=== PATIENT | female | born 1985 | race Caucasian/White ===

== ENCOUNTER 2016-09-18 | Emergency (ER) | payer OTHER ==
--- NOTE | 2016-09-18 14:25 | ED ---
Abdominal Pain HPI - General Chief Complaint: Abdominal Pain Stated Complaint: abdominal pain Time Seen by Provider: 09/18/16 14:08 Source: patient, RN notes reviewed Mode of arrival: ambulatory Limitations: no limitations - History of Present Illness Initial Comments: Patient 31-year-old female who presents to the [facility] emergency room today with a chief complaint of abdominal pain was symptoms of nausea vomiting diarrhea over the last 3 days. Patient states that symptoms started 3 days ago with symptoms of nausea vomiting. She states that states had some abdominal pain that is comes and goes. States located in her lower abdomen. States it's more discomfort. Patient admits to diarrhea but denies any signs of blood in the stool or emesis. She denies any other complaints associated symptoms. - Related Data Home Medications Medication Instructions Recorded Confirmed Ibuprofen [Motrin] 800 mg PO Q8H PRN 08/12/15 11/10/15 Previous Rx's Medication Instructions Recorded Naproxen [Naprosyn] 500 mg PO Q12HR #24 tab 11/10/15 Dicyclomine [Bentyl] 20 mg PO QID #20 tablet 09/18/16 Ondansetron Odt [Zofran ODT] 4 mg PO Q8HR PRN #15 tab 09/18/16 Allergies Allergy/AdvReac Type Severity Reaction Status Date / Time erythromycin ethylsuccinate Allergy Unknown Verified 09/18/16 13:54 [From Pediazole] etonogestrel [From Nexplanon] Allergy Unknown Verified 09/18/16 13:54 iodine Allergy Unknown Verified 09/18/16 13:54 Penicillins Allergy Unknown Verified 09/18/16 13:54 Sulfa (Sulfonamide Allergy Unknown Verified 09/18/16 13:54 Antibiotics) sulfisoxazole acetyl Allergy Unknown Verified 09/18/16 13:54 [From Pediazole] decongestants Allergy Unknown Uncoded 09/18/16 13:54 Review of Systems ROS Statement: Those systems with pertinent positive or pertinent negative responses have been documented in the HPI. ROS Other: All systems not noted in ROS Statement are negative. Past Medical History Past Medical History: Asthma Additional Past Medical History / Comment(s): migraines, anemia, ovarian cyst History of Any Multi-Drug Resistant Organisms: None Reported Past Surgical History: Adenoidectomy, Orthopedic Surgery Additional Past Surgical History / Comment(s): bunionectomy, ovarian cyst removal, d&c Past Psychological History: Anxiety Smoking Status: Never smoker Past Alcohol Use History: None Reported Past Drug Use History: None Reported General Exam - General Exam Comments Initial Comments: General: The patient is awake and alert, in no distress, and does not appear acutely ill. Eye: Pupils are equal, round and reactive to light, extra-ocular movements are intact. No nystagmus. There is normal conjunctiva bilaterally. No signs of icterus. Ears, nose, mouth and throat: There are moist mucous membranes and no oral lesions. Neck: The neck is supple, there is no tenderness or JVD. Cardiovascular: There is a regular rate and rhythm. No murmur, rub or gallop is appreciated. Respiratory: Lungs are clear to auscultation, respirations are non-labored, breath sounds are equal. No wheezes, stridor, rales, or rhonchi. Gastrointestinal: Normal. 7. Normal bowel sounds. Abdomen soft on palpation. Mild tenderness. No rebound or guarding. No CVA tenderness. Musculoskeletal: Normal ROM, no tenderness. Strength 5/5. Sensation intact. Pulses equal bilaterally 2+. Neurological: A&O x 3. CN II-XII intact, There are no obvious motor or sensory deficits. Coordination appears grossly intact. Speech is normal. Skin: Skin is warm and dry and no rashes or lesions are noted. Psychiatric: Cooperative, appropriate mood & affect, normal judgment. Limitations: no limitations Course Vital Signs 09/18/16 13:52 Temperature 97.8 F Pulse Rate 82 Respiratory 18 Rate Blood Pressure 111/71 O2 Sat by Pulse 100 Oximetry Medical Decision Making - Medical Decision Making Treatment options discussed with patient about IV and lab work here in the emergency room along with fluids. States she is able tolerate is been keeping fluids down. Abdominal pain minimal on exam. She states is more of a discomfort that comes and goes. Signs symptoms appendicitis were also discussed with the patient. She states that this time shows comfortable being discharged home trying medications of both Zofran and Bentyl for her symptoms. She states she will increase her oral fluids. She states she will return to emergency room symptoms increase or worsen or for any other concerns. Disposition Clinical Impression: Nausea vomiting and diarrhea, Abdominal pain Disposition: HOME SELF-CARE Condition: Good Instructions: Abdominal Pain (ED) Additional Instructions: Please use medication as discussed. Please follow-up with family doctor in the next 2 days of symptoms have not improved. Please return to emergency room if the symptoms increase or worsen or for any other concerns. Prescriptions: Dicyclomine [Bentyl] 20 mg PO QID #20 tablet Ondansetron Odt [Zofran ODT] 4 mg PO Q8HR PRN #15 tab PRN Reason: Nausea Time of Disposition: 14:24
== END 2016-09-18 14:31 | disposition home or self-care (01) ==
CPT/HCPCS: 99283

== ENCOUNTER 2016-10-30 18:15 | Emergency (ER) | payer OTHER ==
[2016-10-30 18:20] VITALS: TEMP 97.7
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
--- NOTE | 2016-10-30 19:16 | XR ---
EXAMINATION TYPE: XR tibia fibula LT DATE OF EXAM: 10/30/2016 6:59 PM COMPARISON: NONE HISTORY: Pain TECHNIQUE: 4 views FINDINGS: I see no fracture nor dislocation. Knee joint and ankle joint appear intact. IMPRESSION: Negative left tibia and fibula exam.
[2016-10-30 19:37] VITALS: BP 113/72; PULSE 71; RESP 16
== END 2016-10-30 19:37 | disposition home or self-care (01) ==
LOC: EC 18:15
DX: S80.12XA Contusion of left lower leg, initial encounter (principal); W22.8XXA Striking against or struck by other objects, initial encounter; B37.3 Candidiasis of vulva and vagina; Z79.899 Other long term (current) drug therapy; Z88.0 Allergy status to penicillin; Z88.1 Allergy status to other antibiotic agents; Z88.2 Allergy status to sulfonamides; Z88.8 Allergy status to other drugs, medicaments and biological substances
CPT/HCPCS: 99284

== ENCOUNTER 2017-01-06 08:43 | Emergency (ER) | payer OTHER ==
[2017-01-06] MEDS ORDERED: SODIUM CHLORIDE 0.9% 1,000 ML IV STA (11:16)
[2017-01-06] MEDS ORDERED: ACETAMINOPHEN IV (For NPO) 1,000 MG in SALINE 100 100ML.BAG IVPB STA (11:17)
--- NOTE | 2017-01-06 11:20 | ED ---
General Adult HPI - General Chief complaint: Abdominal Pain Stated complaint: abd pain Time Seen by Provider: 01/06/17 11:04 Source: patient, RN notes reviewed Mode of arrival: ambulatory Limitations: no limitations - History of Present Illness Initial comments: Patient is a 31-year-old female who presents emergency room today with a chief complaint of abdominal pain times one week. She does admit to pain right side of the abdomen. States has been getting worse the last day. States radiating up and around to the back. Admits some nausea at times. She denies any other complaints or symptoms. Patient denies any recent fever, chills, shortness of breath, chest pain, back pain,vomiting, numbness or tingling, dysuria or hematuria, constipation or diarrhea, headaches or visual changes, or any other complaints. - Related Data Home Medications Medication Instructions Recorded Confirmed Ibuprofen [Motrin] 800 mg PO Q8H PRN 08/12/15 01/06/17 Amitriptyline HCl [Elavil] 10 mg PO HS 01/06/17 01/06/17 Cetirizine HCl [Zyrtec] 10 mg PO HS 01/06/17 01/06/17 Multivitamins, Thera [Multivitamin 1 tab PO DAILY 01/06/17 01/06/17 (formulary)] Allergies Allergy/AdvReac Type Severity Reaction Status Date / Time erythromycin ethylsuccinate Allergy Unknown Verified 01/06/17 12:21 [From Pediazole] etonogestrel [From Nexplanon] Allergy Unknown Verified 01/06/17 12:21 iodine Allergy Unknown Verified 01/06/17 12:21 Penicillins Allergy Unknown Verified 01/06/17 12:21 Sulfa (Sulfonamide Allergy Unknown Verified 01/06/17 12:21 Antibiotics) sulfisoxazole acetyl Allergy Unknown Verified 01/06/17 12:21 [From Pediazole] decongestants Allergy Unknown Uncoded 09/18/16 13:54 Review of Systems ROS Statement: Those systems with pertinent positive or pertinent negative responses have been documented in the HPI. ROS Other: All systems not noted in ROS Statement are negative. Past Medical History Past Medical History: Asthma Additional Past Medical History / Comment(s): migraines, anemia, ovarian cyst History of Any Multi-Drug Resistant Organisms: None Reported Past Surgical History: Adenoidectomy, Orthopedic Surgery Additional Past Surgical History / Comment(s): bunionectomy, ovarian cyst removal, d&c Past Psychological History: Anxiety Smoking Status: Never smoker Past Alcohol Use History: None Reported Past Drug Use History: None Reported General Exam - General Exam Comments Initial Comments: General: The patient is awake and alert, in no distress, and does not appear acutely ill. Eye: Pupils are equal, round and reactive to light, extra-ocular movements are intact. No nystagmus. There is normal conjunctiva bilaterally. No signs of icterus. Ears, nose, mouth and throat: There are moist mucous membranes and no oral lesions. Neck: The neck is supple, there is no tenderness or JVD. Cardiovascular: There is a regular rate and rhythm. No murmur, rub or gallop is appreciated. Respiratory: Lungs are clear to auscultation, respirations are non-labored, breath sounds are equal. No wheezes, stridor, rales, or rhonchi. Gastrointestinal: Normal appearance abdomen. Normal bowel sounds. Abdomen soft on palpation. Patient does have tenderness in the right lower quadrant. No rebound tenderness. No Guarding. No CVA tenderness. Musculoskeletal: Normal ROM, no tenderness. Strength 5/5. Sensation intact. Pulses equal bilaterally 2+. Neurological: A&O x 3. CN II-XII intact, There are no obvious motor or sensory deficits. Coordination appears grossly intact. Speech is normal. Skin: Skin is warm and dry and no rashes or lesions are noted. Psychiatric: Cooperative, appropriate mood & affect, normal judgment. Limitations: no limitations Course Vital Signs 01/06/17 10:28 Temperature 98.6 F Pulse Rate 68 Respiratory 18 Rate Blood Pressure 120/58 O2 Sat by Pulse 98 Oximetry Medical Decision Making - Medical Decision Making Patient reexamined at this time shows no signs of distress. Does admit that she 's feeling better here in the emergency room. Patient's ultrasound negative for any evidence of appendicitis the right lower quadrant. Does show evidence of a left-sided bleeding be hemorrhagic cyst. Follow-up recommended with her OB /MEDICAL STAFF ASSISTANT. At this time will be discharged home and advised to follow-up with OB/ MEDICAL STAFF ASSISTANT over the next 2 days. She is advised return here to the emergency room if any symptoms increase or worsen or for any other concerns. - Lab Data Result diagrams: 01/06/17 11:10 01/06/17 11:10 Lab Results 01/06/17 01/06/17 01/06/17 Range/Units 11:10 11:10 11:10 WBC 4.7 (3.8-10.6) k/uL RBC 4.76 (3.80-5.40) m/uL Hgb 13.8 (11.4-16.0) gm/dL Hct 40.3 (34.0-46.0) % MCV 84.5 (80.0-100.0) fL MCH 29.1 (25.0-35.0) pg MCHC 34.4 (31.0-37.0) g/dL RDW 13.0 (11.5-15.5) % Plt Count 167 (150-450) k/uL Neutrophils % 58 % Lymphocytes % 31 % Monocytes % 7 % Eosinophils % 1 % Basophils % 1 % Neutrophils # 2.7 (1.3-7.7) k/uL Lymphocytes # 1.5 (1.0-4.8) k/uL Monocytes # 0.3 (0-1.0) k/uL Eosinophils # 0.1 (0-0.7) k/uL Basophils # 0.0 (0-0.2) k/uL Sodium 139 (137-145) mmol/L Potassium 4.1 (3.5-5.1) mmol/L Chloride 107 (98-107) mmol/L Carbon Dioxide 24 (22-30) mmol/L Anion Gap 8 mmol/L BUN 11 (7-17) mg/dL Creatinine 0.80 (0.52-1.04) mg/dL Est GFR (MDRD) Af Amer >60 (>60 ml/min/1.73 sqM) Est GFR (MDRD) Non-Af >60 (>60 ml/min/1.73 sqM) Glucose 83 (74-99) mg/dL Calcium 9.1 (8.4-10.2) mg/dL Total Bilirubin 0.8 (0.2-1.3) mg/dL AST 21 (14-36) U/L ALT 26 (9-52) U/L Alkaline Phosphatase 41 (38-126) U/L Total Protein 6.9 (6.3-8.2) g/dL Albumin 4.0 (3.5-5.0) g/dL Amylase 63 (30-110) U/L Lipase 89 (23-300) U/L Urine Color Urine Appearance (Clear) Urine pH (5.0-8.0) Ur Specific [place] (1.001-1.035) Urine Protein (Negative) Urine Glucose (UA) (Negative) Urine Ketones (Negative) Urine Blood (Negative) Urine Nitrite (Negative) Urine Bilirubin (Negative) Urine Urobilinogen (<2.0) mg/dL Ur Leukocyte Esterase (Negative) Urine RBC (0-5) /hpf Urine WBC (0-5) /hpf Ur Squamous Epith Cells (0-4) /hpf Urine Bacteria (None) /hpf Urine Mucus (None) /hpf Urine HCG, Qual Not Detected (Not Detectd) 01/06/17 Range/Units 11:10 WBC (3.8-10.6) k/uL RBC (3.80-5.40) m/uL Hgb (11.4-16.0) gm/dL Hct (34.0-46.0) % MCV (80.0-100.0) fL MCH (25.0-35.0) pg MCHC (31.0-37.0) g/dL RDW (11.5-15.5) % Plt Count (150-450) k/uL Neutrophils % % Lymphocytes % % Monocytes % % Eosinophils % % Basophils % % Neutrophils # (1.3-7.7) k/uL Lymphocytes # (1.0-4.8) k/uL Monocytes # (0-1.0) k/uL Eosinophils # (0-0.7) k/uL Basophils # (0-0.2) k/uL Sodium (137-145) mmol/L Potassium (3.5-5.1) mmol/L Chloride (98-107) mmol/L Carbon Dioxide (22-30) mmol/L Anion Gap mmol/L BUN (7-17) mg/dL Creatinine (0.52-1.04) mg/dL Est GFR (MDRD) Af Amer (>60 ml/min/1.73 sqM) Est GFR (MDRD) Non-Af (>60 ml/min/1.73 sqM) Glucose (74-99) mg/dL Calcium (8.4-10.2) mg/dL Total Bilirubin (0.2-1.3) mg/dL AST (14-36) U/L ALT (9-52) U/L Alkaline Phosphatase (38-126) U/L Total Protein (6.3-8.2) g/dL Albumin (3.5-5.0) g/dL Amylase (30-110) U/L Lipase (23-300) U/L Urine Color Yellow Urine Appearance Clear (Clear) Urine pH 6.0 (5.0-8.0) Ur Specific [place] 1.016 (1.001-1.035) Urine Protein Negative (Negative) Urine Glucose (UA) Negative (Negative) Urine Ketones Negative (Negative) Urine Blood Negative (Negative) Urine Nitrite Negative (Negative) Urine Bilirubin Negative (Negative) Urine Urobilinogen <2.0 (<2.0) mg/dL Ur Leukocyte Esterase Moderate H (Negative) Urine RBC 1 (0-5) /hpf Urine WBC 3 (0-5) /hpf Ur Squamous Epith Cells 2 (0-4) /hpf Urine Bacteria Rare H (None) /hpf Urine Mucus Rare H (None) /hpf Urine HCG, Qual (Not Detectd) Disposition Clinical Impression: Ovarian cyst Disposition: HOME SELF-CARE Condition: Good Instructions: Ovarian Cyst (ED) Additional Instructions: Please follow-up with your MANAGER BEHAVIOR over the next 2 days. Please return to emergency room if any symptoms increase or worsen or for any other concerns as discussed. Referrals: Zoraida Deleon MD [Primary Care Provider] - 1-2 days Zee Huynh NPC [REFERRING] - 1-2 days Time of Disposition: 12:30
[2017-01-06 11:33] LABS: Basophils % (A) 1 %; CH 28.9; CHCM 34.3; Eosinophils # (A) 0.1 k/uL (0-0.7); Eosinophils % (A) 1 %; HCT 40.3 % (34.0-46.0); HDW 2.49; HGB 13.8 gm/dL (11.4-16.0); Luc # (Auto) 0.12; Luc % (Auto) 3; Lymphocytes # (A) 1.5 k/uL (1.0-4.8); Lymphocytes % (A) 31 %; MCH 29.1 pg (25.0-35.0); MCHC 34.4 g/dL (31.0-37.0); MCV 84.5 fL (80.0-100.0); Mean Platelet Volume 7.2; Monocytes # (A) 0.3 k/uL (0-1.0); Monocytes % (A) 7 %; Neutrophils # (A) 2.7 k/uL (1.3-7.7); Neutrophils % (A) 58 %; RBC 4.76 m/uL (3.80-5.40); WBC 4.7 k/uL (3.8-10.6); WBC (Perox) 4.44
[2017-01-06 11:44] LABS: ALT 26 U/L (9-52); AST 21 U/L (14-36); Alkaline Phosphatase 41 U/L (38-126); Amylase 63 U/L (30-110); Anion Gap 8 mmol/L; Blood Urea Nitrogen 11 mg/dL (7-17); Calcium 9.1 mg/dL (8.4-10.2); Carbon Dioxide 24 mmol/L (22-30); Chloride 107 mmol/L (98-107); Glucose 83 mg/dL (74-99); Non-African American GFR(MDRD) >60 (>60 ml/min/1.73 sqM); Potassium 4.1 mmol/L (3.5-5.1); Sodium 139 mmol/L (137-145); Total Bilirubin 0.8 mg/dL (0.2-1.3); Total Protein 6.9 g/dL (6.3-8.2)
[2017-01-06 11:59] LABS: Appearance,Urine Clear (Clear); Bacteria,Urine Rare /hpf; Bilirubin,Urine Negative (Negative); Glucose,Urine (UA) Negative (Negative); Ketones,Urine Negative (Negative); Leukocyte Esterase,Urine Moderate (Negative); Mucus,Urine Rare /hpf; Nitrite,Urine Negative (Negative); Particle Count 3748; Protein,Urine Negative (Negative); RBC,Urine 1 /hpf (0-5); Specific Gravity,Urine 1.016 (1.001-1.035); Squamous Epithelial Cell,Urine 2 /hpf (0-4); UA Billing (MACRO vs. MICRO) MICRO; Urobilinogen,Urine <2.0 mg/dL (<2.0); WBC,Urine 3 /hpf (0-5)
--- NOTE | 2017-01-06 12:08 | US ---
EXAMINATION TYPE: US abdomen APPY DATE OF EXAM: 01/06/2017 11:51 AM COMPARISON: NONE CLINICAL HISTORY: Pain. rt adnexal pain x 1 wk APPENDIX AP Diameter (normal < 6mm): 4.6 mm Measured outer wall to outer wall. Normal appearing bowel within the rt adnexa. Appendix appears wnl. There is a small amount of free fluid within the rt adnexa. Free fluid may be physiologic. No suspicious tubular structures. IMPRESSION: 1. Normal right lower quadrant ultrasound.
--- NOTE | 2017-01-06 12:11 | US ---
EXAMINATION TYPE: US transvaginal DATE OF EXAM: 01/06/2017 12:00 PM COMPARISON: NONE CLINICAL HISTORY: pain. rt adnexal pain x 1 wk TECHNIQUE: Transvaginal (TV) Date of LMP: 2 wks ago EXAM MEASUREMENTS: Uterus: 9.7 x 5.0 x 6.6 cm Endometrial Stripe: 1.2 cm Right Ovary: 3.2 x 1.7 x 2.3 cm Left Ovary: 3.6 x 2.4 x 3.2 cm 1. Uterus: Anteverted wnl 2. Endometrium: wnl 3. Right Ovary: wnl follicles are present. 4. Left Ovary: seen with a 1.7 x 1.5 x 1.5cm solid appearing structure, may be a hemorrhagic cyst, s hort term follow up recommended. Spectral, color and waveform doppler imaging shows good arterial and venous flow within the ovaries ; there is no evidence for ovarian torsion. 5. Bilateral Adnexa: small amount of free fluid within the rt adnexa 6. Posterior cul-de-sac: free fluid within the cds measuring 2.2 x 0.9 x 1.4cm IMPRESSION: 1. Moderate free fluid within the pelvis. 2. 1.5 cm solid lesion left ovary. Differential would include hemorrhagic cyst. Follow-up following t he next normal menstrual period or in 6 weeks is recommended.
[2017-01-06 12:58] VITALS: BP 97/86; PULSE 72; RESP 16; TEMP 98.4
== END 2017-01-06 12:58 | disposition home or self-care (01) ==
LOC: EC 08:43
DX: N83.202 Unspecified ovarian cyst, left side (principal); R10.11 Right upper quadrant pain; F41.9 Anxiety disorder, unspecified; Z79.899 Other long term (current) drug therapy; Z88.0 Allergy status to penicillin; Z88.1 Allergy status to other antibiotic agents; Z88.8 Allergy status to other drugs, medicaments and biological substances; Z91.09 Other allergy status, other than to drugs and biological substances
CPT/HCPCS: 99284; 96365; 96361; 36415; 80053; 82150; 83690; 85025; 81001; 81025; 76705; 76830; J0131; 93975

== ENCOUNTER 2017-02-11 18:18 | Emergency (ER) | payer OTHER ==
[2017-02-11 18:23] VITALS: BP 115/83; PULSE 65; RESP 18; TEMP 98.5
--- NOTE | 2017-02-11 18:48 | ED ---
General Adult HPI - General Chief complaint: Neuro Symptoms/Deficit Stated complaint: NUMBNESS IN FACE JAW AND LEFT ARM X 2 DAYS Time Seen by Provider: 02/11/17 18:24 Source: patient, family, RN notes reviewed, old records reviewed Mode of arrival: ambulatory Limitations: no limitations - History of Present Illness Initial comments: Chief complaint history of present illness a 31-year-old female with complaint of some tingling from her shoulder to her fingertips. Slightly different on the radial side and the ulnar side. Full range of motion feel slightly heavier. 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 With a slightly positive left arm drift test. She reports she does not have a headache. Though she has a history of frequent migraines and when she has a migraine on the left side of her head she has almost total dysfunction on the left side of her body. Her aura is very strokelike. She has not had a migraine associated with this symptom of paresthesia from the shoulder to the hands. - Related Data Home Medications Medication Instructions Recorded Confirmed Ibuprofen [Motrin] 800 mg PO Q8H PRN 08/12/15 01/06/17 Amitriptyline HCl [Elavil] 10 mg PO HS 01/06/17 01/06/17 Cetirizine HCl [Zyrtec] 10 mg PO HS 01/06/17 01/06/17 Multivitamins, Thera [Multivitamin 1 tab PO DAILY 01/06/17 01/06/17 (formulary)] Previous Rx's Medication Instructions Recorded methylPREDNISolone Dose Pack 4 mg PO DIRECTED #21 package 02/11/17 [Medrol Dose Pack] Allergies Allergy/AdvReac Type Severity Reaction Status Date / Time erythromycin ethylsuccinate Allergy Unknown Verified 02/11/17 18:24 [From Pediazole] etonogestrel [From Nexplanon] Allergy Unknown Verified 02/11/17 18:24 iodine Allergy Unknown Verified 02/11/17 18:24 Penicillins Allergy Unknown Verified 02/11/17 18:24 Sulfa (Sulfonamide Allergy Unknown Verified 02/11/17 18:24 Antibiotics) sulfisoxazole acetyl Allergy Unknown Verified 02/11/17 18:24 [From Pediazole] decongestants Allergy Unknown Uncoded 02/11/17 18:24 Review of Systems ROS Statement: Those systems with pertinent positive or pertinent negative responses have been documented in the HPI. Review of systems no headache or visual acuity changes no neck ache more than normal. No recent injuries. No chest pain shows breath GI/ problems. Her subjective complaint of left arm feels little heavier and tingly from the shoulder to the fingers. But with normal range of motion of the shoulder elbow and wrist and fingers but the arm feels slightly heavier. All systems were reviewed. Past medical problems significant for asthma, migraines, anemia. Surgeries adenoidectomy and bunionectomy. Also ovarian cyst removal. Patient' s been on Elavil for the last month. Family history no cancers no migraines no aneurysms. Patient has ALLERGIES to erythromycin, certain kind of control etonoGestrel, iodine penicillin and sulfa. Nonsmoker nondrinker ROS Other: All systems not noted in ROS Statement are negative. Past Medical History Past Medical History: Asthma Additional Past Medical History / Comment(s): migraines, anemia, ovarian cyst History of Any Multi-Drug Resistant Organisms: None Reported Past Surgical History: Adenoidectomy, Orthopedic Surgery Additional Past Surgical History / Comment(s): bunionectomy, ovarian cyst removal, d&c Past Psychological History: Anxiety Smoking Status: Never smoker Past Alcohol Use History: None Reported Past Drug Use History: None Reported General Exam - General Exam Comments Initial Comments: General: The patient is awake and alert, in no distress, and does not appear acutely ill. Planes of paresthesia left arm shoulder to fingertips. Vital signs shows temperature 98.5 pulse 85 respiratory rate 18 pulse ox 100% room air blood pressure 115/83 Eye: Pupils are equal, round and reactive to light, extra-ocular movements are intact ; there is normal conjunctiva bilaterally. No signs of icterus. Ears, nose, mouth and throat: There are moist mucous membranes and no oral lesions. Neck: The neck is supple, there is no tenderness , no carotid bruit. No increased stiffness to her neck. Sensation to her left arm and hand doesn't change if she turns her head hard the left or the right. Cardiovascular: There is a regular rate and rhythm. No murmur, rub or gallop is appreciated. Respiratory: Lungs are clear to auscultation, respirations are non-labored, breath sounds are equal. No wheezes, stridor, rales, or rhonchi. Gastrointestinal: Soft, non-distended, non-tender abdomen without masses or organomegaly noted. There is no rebound or guarding present. No CVA tenderness. Bowel sounds are unremarkable. Back: There is no tenderness to palpation in the midline. There is no obvious deformity. No rashes noted. Musculoskeletal: Normal ROM, no tenderness, There is no pedal edema. There is no calf tenderness or swelling. Sensation intact. Pulses equal bilaterally 2+. Neurological: Logically intact except for a paresthesia from her left shoulder to her left fingertips. Slightly different when rubbing the volar surface versus the dorsal surface. 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 On neurological examination slight drift with left arm. Patient reports arm does feel heavy. States when she normally has her migraines she headache, nausea vomiting and whichever side the headache is on she'll actually demonstrate stroke type symptoms. She has not had a headache this past 28 hours but she has had a paresthesia to the left arm. Skin: Skin is warm and dry and no rashes or lesions are noted. Psychiatric: Past history of anxiety Limitations: no limitations Course Vital Signs 02/11/17 18:21 Temperature 98.5 F Pulse Rate 65 Respiratory 18 Rate Blood Pressure 115/83 O2 Sat by Pulse 100 Oximetry Medical Decision Making - Medical Decision Making CT the brain was done and reviewed by radiologist his impression is the ventricles of normal size. There is no mass effect or midline shift. There is no sign of intracranial hemorrhage. The calvarium is intact. Impression negative unenhanced head computed tomography scan. No change. As read by Dr. La We discussed migraines with auras with migraines without headache but just the aura nonmigraine migraine. CAT scan of the brain was negative. Possibility of her chronic neck pain causing some paresthesia or cervical radiculopathy was discussed the patient will be placed on a Medrol Dosepak to be taken as directed. No pain medications and necessary as the patient is on have pain. She was advised to follow-up with her family physician tomorrow. If she does not have a neurologist she'll be referred to the on-call neurologist covering emergency room today Dr. Truong. Disposition Clinical Impression: Paresthesia of arm Disposition: HOME SELF-CARE Condition: Fair Instructions: Paresthesia (ED) Additional Instructions: Take Medrol Dosepak as directed. Continue with home medications. Follow-up with your family physician and her neurologist he don't have a neurologist follow-up with Dr. truong. Call office for appointment Prescriptions: methylPREDNISolone Dose Pack [Medrol Dose Pack] 4 mg PO DIRECTED #21 package Referrals: Hakeem Wolfe MD [STAFF PHYSICIAN] - 1-2 days Kuldeep Truong MD [STAFF PHYSICIAN] - 1-2 days Time of Disposition: 19:22
--- NOTE | 2017-02-11 19:03 | CT ---
EXAMINATION TYPE: CT brain wo con DATE OF EXAM: 02/11/2017 COMPARISON: 08/14/2010 HISTORY: Numbness in left arm x2 days. CT DLP: 916.0 mGycm Automated exposure control for dose reduction was used. FINDINGS: Ventricles have normal size. There is no mass effect nor midline shift. There is no sign of intracran ial hemorrhage. The calvarium is intact. IMPRESSION: Negative unenhanced head CT scan. No change.
== END 2017-02-11 19:29 | disposition home or self-care (01) ==
LOC: EC 18:18
DX: R20.2 Paresthesia of skin (principal); J45.909 Unspecified asthma, uncomplicated; D64.9 Anemia, unspecified; F41.9 Anxiety disorder, unspecified; Z79.899 Other long term (current) drug therapy; Z88.0 Allergy status to penicillin; Z88.1 Allergy status to other antibiotic agents; Z88.2 Allergy status to sulfonamides; Z88.8 Allergy status to other drugs, medicaments and biological substances; Z91.09 Other allergy status, other than to drugs and biological substances
CPT/HCPCS: 70450; 99284

== ENCOUNTER 2017-03-31 21:37 | Observation (INO) | payer OTHER ==
[2017-03-31 22:34] LABS: Appearance,Urine Clear (Clear); Bacteria,Urine Rare /hpf; Bilirubin,Urine Negative (Negative); Glucose,Urine (UA) Negative (Negative); Ketones,Urine Negative (Negative); Leukocyte Esterase,Urine Trace (Negative); Mucus,Urine Rare /hpf; Nitrite,Urine Negative (Negative); PH, Urine 6.5 (5.0-8.0); Particle Count 2777; Protein,Urine Negative (Negative); RBC,Urine <1 /hpf (0-5); Specific Gravity,Urine 1.017 (1.001-1.035); Squamous Epithelial Cell,Urine 2 /hpf (0-4); UA Billing (MACRO vs. MICRO) MICRO; Urobilinogen,Urine <2.0 mg/dL (<2.0); WBC,Urine 3 /hpf (0-5)
[2017-03-31] MEDS ORDERED: DICYCLOMINE 20 MG TAB PO STA (22:46)
[2017-03-31 23:10] LABS: Basophils % (A) 1 %; CH 29.8; CHCM 34.3; Eosinophils # (A) 0.1 k/uL (0-0.7); Eosinophils % (A) 2 %; HDW 2.33; HGB 13.7 gm/dL (11.4-16.0); Luc # (Auto) 0.12; Luc % (Auto) 2; Lymphocytes # (A) 2.2 k/uL (1.0-4.8); Lymphocytes % (A) 37 %; MCH 29.1 pg (25.0-35.0); MCHC 33.3 g/dL (31.0-37.0); MCV 87.2 fL (80.0-100.0); Mean Platelet Volume 7.7; Monocytes # (A) 0.3 k/uL (0-1.0); Monocytes % (A) 5 %; Neutrophils # (A) 3.3 k/uL (1.3-7.7); Neutrophils % (A) 54 %; RDW 13.8 % (11.5-15.5); WBC 6.1 k/uL (3.8-10.6); WBC (Perox) 5.79
[2017-03-31 23:14] LABS: ALT 40 U/L (9-52); AST 28 U/L (14-36); Alkaline Phosphatase 44 U/L (38-126); Amylase 64 U/L (30-110); Anion Gap 11 mmol/L; Blood Urea Nitrogen 11 mg/dL (7-17); Calcium 9.5 mg/dL (8.4-10.2); Carbon Dioxide 24 mmol/L (22-30); Chloride 105 mmol/L (98-107); Glucose 79 mg/dL (74-99); Non-African American GFR(MDRD) >60 (>60 ml/min/1.73 sqM); Potassium 4.4 mmol/L (3.5-5.1); Sodium 140 mmol/L (137-145); Total Bilirubin 0.4 mg/dL (0.2-1.3); Total Protein 6.8 g/dL (6.3-8.2)
--- NOTE | 2017-04-01 00:01 | ED ---
Abdominal Pain HPI - General Chief Complaint: Abdominal Pain Stated Complaint: Abd Pain Time Seen by Provider: 03/31/17 22:00 Source: patient Mode of arrival: ambulatory Limitations: no limitations - History of Present Illness Initial Comments: This patient is a 31-year-old woman who states that she is having bilateral lower quadrant abdominal pain that started around 1 PM. The pain is intermittent. It comes on last about a minute and during that time his severe. The pain will then resolve but recurs after about 15-20 minutes. She states that she has not noted any worsening or relieving factors. She has not noted any associated symptoms. She tried to have a bowel movement and did but it did not change the pain. She has not had any change in urination. Her last menstrual cycle was a bit over a week ago and was normal. When the pain started she was sitting next to a pool. Denies trauma or exertion. MD Complaint: abdominal pain Onset/Timin -: hour(s) Location: LLQ, RLQ Radiation: none Migration to: no migration Severity: severe Quality: cramping Consistency: intermittent Improves With: nothing Worsens With: nothing Associated Symptoms: denies other symptoms - Related Data Home Medications Medication Instructions Recorded Confirmed Amitriptyline HCl [Elavil] 10 mg PO HS 01/06/17 02/11/17 Cetirizine HCl [Zyrtec] 10 mg PO HS 01/06/17 02/11/17 Multivitamins, Thera [Multivitamin 1 tab PO HS 01/06/17 02/11/17 (formulary)] Previous Rx's Medication Instructions Recorded methylPREDNISolone Dose Pack 4 mg PO DIRECTED #21 package 02/11/17 [Medrol Dose Pack] Allergies Allergy/AdvReac Type Severity Reaction Status Date / Time Iodinated Contrast- Oral and Allergy Severe Cardiac Verified 03/31/17 21:41 IV Dye Arrest [Iodinated Contrast Media - Oral and] anderson Allergy Anaphylaxis Verified 03/31/17 21:41 erythromycin ethylsuccinate Allergy Rash/Hives Verified 03/31/17 21:41 [From Pediazole] etonogestrel [From Nexplanon] Allergy Rash/Hives Verified 03/31/17 21:41 Penicillins Allergy Rash/Hives Verified 03/31/17 21:41 Sulfa (Sulfonamide Allergy Rash/Hives Verified 03/31/17 21:41 Antibiotics) sulfisoxazole acetyl Allergy Rash/Hives Verified 03/31/17 21:41 [From Pediazole] loratadine [From Claritin-D] AdvReac Nausea & Verified 03/31/17 21:41 Vomiting pseudoephedrine AdvReac Nausea & Verified 03/31/17 21:41 [From Claritin-D] Vomiting Review of Systems ROS Statement: Those systems with pertinent positive or pertinent negative responses have been documented in the HPI. ROS Other: All systems not noted in ROS Statement are negative. Constitutional: Denies: fever, chills Respiratory: Denies: cough, dyspnea Cardiovascular: Denies: chest pain, palpitations, edema, syncope Gastrointestinal: Reports: abdominal pain. Denies: nausea, vomiting, diarrhea, constipation, melena, hematochezia Genitourinary: Denies: dysuria, frequency, hematuria, discharge, abnormal menses Musculoskeletal: Denies: back pain Skin: Denies: rash Neurological: Denies: headache, weakness, numbness, paresthesias Past Medical History Past Medical History: Asthma Additional Past Medical History / Comment(s): migraines, anemia, ovarian cyst History of Any Multi-Drug Resistant Organisms: None Reported Past Surgical History: Adenoidectomy, Orthopedic Surgery Additional Past Surgical History / Comment(s): bunionectomy, ovarian cyst removal, d&c Past Psychological History: Anxiety Smoking Status: Never smoker Past Alcohol Use History: None Reported Past Drug Use History: None Reported General Exam Limitations: no limitations General appearance: alert, in no apparent distress Head exam: Present: atraumatic, normocephalic Eye exam: Present: normal appearance. Absent: scleral icterus, conjunctival injection ENT exam: Present: normal oropharynx, mucous membranes moist Respiratory exam: Present: normal lung sounds bilaterally. Absent: respiratory distress, wheezes, rales, rhonchi, stridor Cardiovascular Exam: Present: regular rate, normal rhythm, normal heart sounds. Absent: systolic murmur, diastolic murmur, rubs, gallop GI/Abdominal exam: Present: soft, tenderness (Bilateral lower quadrant), hyperactive bowel sounds. Absent: distended, guarding, rebound, rigid, mass, pulsatile mass, hernia Extremities exam: Present: normal inspection, normal capillary refill. Absent: pedal edema, calf tenderness Back exam: Present: normal inspection. Absent: CVA tenderness (R), CVA tenderness (L) Neurological exam: Present: alert Skin exam: Present: warm, dry, intact, normal color. Absent: rash, cyanosis, diaphoretic, erythema, petechiae, pallor, mottled Course Vital Signs 03/31/17 03/31/17 21:38 23:43 Temperature 99.4 F 98.8 F Pulse Rate 81 86 Respiratory 18 16 Rate Blood Pressure 128/84 102/57 O2 Sat by Pulse 100 100 Oximetry Medical Decision Making - Medical Decision Making Case discussed with Dr. Florian, covering for the patient's physician who will admit and case also discussed with Dr. Mayes, who is covering for Dr. Curry ( seen the patient previously). - Lab Data Result diagrams: 03/31/17 22:53 03/31/17 22:53 Lab Results 03/31/17 03/31/17 03/31/17 Range/Units 21:45 21:45 22:53 WBC (3.8-10.6) k/uL RBC (3.80-5.40) m/uL Hgb (11.4-16.0) gm/dL Hct (34.0-46.0) % MCV (80.0-100.0) fL MCH (25.0-35.0) pg MCHC (31.0-37.0) g/dL RDW (11.5-15.5) % Plt Count (150-450) k/uL Neutrophils % % Lymphocytes % % Monocytes % % Eosinophils % % Basophils % % Neutrophils # (1.3-7.7) k/uL Lymphocytes # (1.0-4.8) k/uL Monocytes # (0-1.0) k/uL Eosinophils # (0-0.7) k/uL Basophils # (0-0.2) k/uL Sodium 140 (137-145) mmol/L Potassium 4.4 (3.5-5.1) mmol/L Chloride 105 (98-107) mmol/L Carbon Dioxide 24 (22-30) mmol/L Anion Gap 11 mmol/L BUN 11 (7-17) mg/dL Creatinine 0.70 (0.52-1.04) mg/dL Est GFR (MDRD) Af Amer >60 (>60 ml/min/1.73 sqM) Est GFR (MDRD) Non-Af >60 (>60 ml/min/1.73 sqM) Glucose 79 (74-99) mg/dL Calcium 9.5 (8.4-10.2) mg/dL Total Bilirubin 0.4 (0.2-1.3) mg/dL AST 28 (14-36) U/L ALT 40 (9-52) U/L Alkaline Phosphatase 44 (38-126) U/L Total Protein 6.8 (6.3-8.2) g/dL Albumin 4.2 (3.5-5.0) g/dL Amylase 64 (30-110) U/L Lipase 106 (23-300) U/L Urine Color Yellow Urine Appearance Clear (Clear) Urine pH 6.5 (5.0-8.0) Ur Specific Stitzer 1.017 (1.001-1.035) Urine Protein Negative (Negative) Urine Glucose (UA) Negative (Negative) Urine Ketones Negative (Negative) Urine Blood Negative (Negative) Urine Nitrite Negative (Negative) Urine Bilirubin Negative (Negative) Urine Urobilinogen <2.0 (<2.0) mg/dL Ur Leukocyte Esterase Trace H (Negative) Urine RBC <1 (0-5) /hpf Urine WBC 3 (0-5) /hpf Ur Squamous Epith Cells 2 (0-4) /hpf Urine Bacteria Rare H (None) /hpf Urine Mucus Rare H (None) /hpf Urine HCG, Qual Not Detected (Not Detectd) 03/31/17 Range/Units 22:53 WBC 6.1 (3.8-10.6) k/uL RBC 4.70 (3.80-5.40) m/uL Hgb 13.7 (11.4-16.0) gm/dL Hct 41.0 (34.0-46.0) % MCV 87.2 (80.0-100.0) fL MCH 29.1 (25.0-35.0) pg MCHC 33.3 (31.0-37.0) g/dL RDW 13.8 (11.5-15.5) % Plt Count 200 (150-450) k/uL Neutrophils % 54 % Lymphocytes % 37 % Monocytes % 5 % Eosinophils % 2 % Basophils % 1 % Neutrophils # 3.3 (1.3-7.7) k/uL Lymphocytes # 2.2 (1.0-4.8) k/uL Monocytes # 0.3 (0-1.0) k/uL Eosinophils # 0.1 (0-0.7) k/uL Basophils # 0.0 (0-0.2) k/uL Sodium (137-145) mmol/L Potassium (3.5-5.1) mmol/L Chloride (98-107) mmol/L Carbon Dioxide (22-30) mmol/L Anion Gap mmol/L BUN (7-17) mg/dL Creatinine (0.52-1.04) mg/dL Est GFR (MDRD) Af Amer (>60 ml/min/1.73 sqM) Est GFR (MDRD) Non-Af (>60 ml/min/1.73 sqM) Glucose (74-99) mg/dL Calcium (8.4-10.2) mg/dL Total Bilirubin (0.2-1.3) mg/dL AST (14-36) U/L ALT (9-52) U/L Alkaline Phosphatase (38-126) U/L Total Protein (6.3-8.2) g/dL Albumin (3.5-5.0) g/dL Amylase (30-110) U/L Lipase (23-300) U/L Urine Color Urine Appearance (Clear) Urine pH (5.0-8.0) Ur Specific Stitzer (1.001-1.035) Urine Protein (Negative) Urine Glucose (UA) (Negative) Urine Ketones (Negative) Urine Blood (Negative) Urine Nitrite (Negative) Urine Bilirubin (Negative) Urine Urobilinogen (<2.0) mg/dL Ur Leukocyte Esterase (Negative) Urine RBC (0-5) /hpf Urine WBC (0-5) /hpf Ur Squamous Epith Cells (0-4) /hpf Urine Bacteria (None) /hpf Urine Mucus (None) /hpf Urine HCG, Qual (Not Detectd) Disposition Clinical Impression: Abdominal pain Disposition: ADMITTED IP TO THIS HOSP Condition: Fair
[2017-04-01] MEDS ORDERED: MORPHINE SULFATE 4 MG/ML SYRINGE IV STA (00:36)
--- NOTE | 2017-04-01 00:42 | CT ---
INDICATION: Lower abdominal pain TECHNIQUE: CT acquisition is performed through the abdomen and pelvis. Sagittal and coronal reformatted images provided. No IV contrast is administered. DOSE INFORMATION: CTDIvol 6.70 mGy; DLP 329.40 mGy-cm. One or more of the following dose reduction techniques were used: automated exposure control, adjustment of the mA and/or kV according to patient size, use of iterative reconstruction technique. COMPARISON: None. FINDINGS: Evaluation is limited without intravenous and oral contrast. The lung bases are clear. The unenhanced appearance of the liver, gallbladder, spleen, pancreas, and adrenal glands is unremarkable. Both kidneys are similar in size and contour. There is no hydronephrosis or radiopaque urolithiasis. Urinary bladder is unremarkable. Uterus and adnexa are grossly normal but poorly evaluated on this modality. There is an abnormally positioned cluster of small bowel loops posterior and lateral to the cecum in the right paracolic gutter raising the possibility of pericecal internal hernia. No abnormally dilated small bowel loops are visualized. The bowel loops appear matted together, but evaluation of the bowel wall for any inflammatory changes is limited without contrast. The cecum is stool-filled and extends into the right hemipelvis. The appendix is not clearly visualized. There is no evidence of acute diverticulitis. There is normal caliber of the aorta. Small mesenteric lymph nodes are visualized. No free fluid or free air is seen in the abdomen or pelvis. There are no acute osseous findings. IMPRESSION: 1. Abnormal cluster of small bowel loops posterolateral to the cecum in the right paracolic gutter, concerning for pericecal internal hernia. No evidence of obstruction. Evaluation of the small bowel loops is limited without oral and intravenous contrast. 2. Nonvisualized appendix. If imaging exclusion of acute appendicitis is desired, repeat examination with oral and intravenous contrast may be performed depending on patient's renal function. [employer] 04/01/17 00:39 Call Doctor Regarding Other, called DR HOWELL @ [phone]
[2017-04-01] MEDS ORDERED: NALOXONE 0.4 MG/ML 1 ML VIAL IV PRN (01:00)
[2017-04-01 01:44] VITALS: BMI 23.0
[2017-04-01] MEDS: SODIUM CHLORIDE 0.9% 1,000 ML IV SCH ×3 (02:30→16:50)
[2017-04-01] MEDS: MORPHINE SULFATE 4 MG/ML SYRINGE IV PRN ×3 (03:42→16:50)
[2017-04-01] MEDS: ONDANSETRON 4 MG/2 ML VIAL IVP PRN (07:44)
[2017-04-01] MEDS: FAMOTIDINE 20 MG/2 ML VIAL IV SCH ×3 (08:56→21:02)
[2017-04-01] MEDS: KETOROLAC 30 MG/ML 1 ML VIAL IVP PRN ×3 (09:49→21:02)
--- NOTE | 2017-04-01 12:37 | P.GSCN ---
History of Present Illness Consult date: 04/01/17 Reason for Consult: Abdominal pain History of present illness: The patient is a 31-year-old female who was at a family get together. She was watching her 3-year-old child and begin developing some cramps in the lower abdomen. Later on in the day, as she was driving home, the pain got worse. It seemed to come in waves. It would be cramp-like. At the time she wondered if she could be having a miscarriage. No vaginal bleeding or drainage. No nausea or vomiting. She's never had anything like this past. She had a normal bowel movement 2 yesterday morning. There is no blood in the stool or dark tarry stool. 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 She has been seen for this in the past by Dr. Abad. No fevers or chills. No dysuria. Review of Systems All systems: negative - Constitutional Denies anorexia, Denies chills, Denies fever - EENT Ears, nose, mouth and throat: Denies sore throat - Respiratory Denies cough - Gastrointestinal Reports abdominal pain, Denies bloating, Denies constipation, Denies diarrhea, Denies indigestion, Denies melena, Denies nausea, Denies vomiting - Genitourinary Genitourinary Comment(s): History of miscarriage Past Medical History Past Medical History: Asthma Additional Past Medical History / Comment(s): migraines, anemia, ovarian cyst History of Any Multi-Drug Resistant Organisms: None Reported Past Surgical History: Adenoidectomy, Orthopedic Surgery Additional Past Surgical History / Comment(s): bunionectomy, ovarian cyst removal, d&c Past Psychological History: Anxiety Smoking Status: Never smoker Past Alcohol Use History: None Reported Past Drug Use History: None Reported Medications and Allergies Home Medications Medication Instructions Recorded Confirmed Type Cetirizine HCl [Zyrtec] 10 mg PO HS 01/06/17 04/01/17 History Multivitamins, Thera [Multivitamin 1 tab PO HS 01/06/17 04/01/17 History (formulary)] Amitriptyline HCl 25 mg PO HS 04/01/17 04/01/17 History Allergies Allergy/AdvReac Type Severity Reaction Status Date / Time Iodinated Contrast- Oral and Allergy Severe Cardiac Verified 04/01/17 11:09 IV Dye Arrest [Iodinated Contrast Media - Oral and] naderson Allergy Anaphylaxis Verified 04/01/17 11:09 erythromycin ethylsuccinate Allergy Rash/Hives Verified 04/01/17 11:09 [From Pediazole] etonogestrel [From Nexplanon] Allergy Rash/Hives Verified 04/01/17 11:09 Penicillins Allergy Rash/Hives Verified 04/01/17 11:09 Sulfa (Sulfonamide Allergy Rash/Hives Verified 04/01/17 11:09 Antibiotics) sulfisoxazole acetyl Allergy Rash/Hives Verified 04/01/17 11:09 [From Pediazole] loratadine [From Claritin-D] AdvReac Nausea & Verified 03/31/17 21:41 Vomiting pseudoephedrine AdvReac Nausea & Verified 03/31/17 21:41 [From Claritin-D] Vomiting Surgical - Exam Osteopathic Statement: *. No significant issues noted on an osteopathic structural exam other than those noted in the History and Physical/Consult. Vital Signs Temp Pulse Resp BP Pulse Ox 99.4 F 81 18 128/84 100 03/31/17 21:38 03/31/17 21:38 03/31/17 21:38 03/31/17 21:38 03/31/17 21:38 - General well developed, well nourished, no distress - Eyes normal ocular movement - ENT normal mucosa - Neck trachea midline - Respiratory normal respiratory effort, clear to auscultation - Cardiovascular Rhythm: regular - Abdomen Abdomen: soft, tender (Lower abdomen), bowel sounds, guarding (Mild voluntary lower abdominal), no rigid, no rebound, no distended - Psychiatric oriented to time, oriented to person, oriented to place, speech is normal, memory intact Results - Labs 03/31/17 22:53 03/31/17 22:53 Abnormal Lab Results - Last 24 Hours (Table) 03/31/17 Range/Units 21:45 Ur Leukocyte Esterase Trace H (Negative) Urine Bacteria Rare H (None) /hpf Urine Mucus Rare H (None) /hpf Diabetes panel 03/31/17 Range/Units 22:53 Sodium 140 (137-145) mmol/L Potassium 4.4 (3.5-5.1) mmol/L Chloride 105 (98-107) mmol/L Carbon Dioxide 24 (22-30) mmol/L BUN 11 (7-17) mg/dL Creatinine 0.70 (0.52-1.04) mg/dL Glucose 79 (74-99) mg/dL Calcium 9.5 (8.4-10.2) mg/dL AST 28 (14-36) U/L ALT 40 (9-52) U/L Alkaline Phosphatase 44 (38-126) U/L Total Protein 6.8 (6.3-8.2) g/dL Albumin 4.2 (3.5-5.0) g/dL Calcium panel 03/31/17 Range/Units 22:53 Calcium 9.5 (8.4-10.2) mg/dL Albumin 4.2 (3.5-5.0) g/dL Pituitary panel 03/31/17 Range/Units 22:53 Sodium 140 (137-145) mmol/L Potassium 4.4 (3.5-5.1) mmol/L Chloride 105 (98-107) mmol/L Carbon Dioxide 24 (22-30) mmol/L BUN 11 (7-17) mg/dL Creatinine 0.70 (0.52-1.04) mg/dL Glucose 79 (74-99) mg/dL Calcium 9.5 (8.4-10.2) mg/dL Adrenal panel 03/31/17 Range/Units 22:53 Sodium 140 (137-145) mmol/L Potassium 4.4 (3.5-5.1) mmol/L Chloride 105 (98-107) mmol/L Carbon Dioxide 24 (22-30) mmol/L BUN 11 (7-17) mg/dL Creatinine 0.70 (0.52-1.04) mg/dL Glucose 79 (74-99) mg/dL Calcium 9.5 (8.4-10.2) mg/dL Total Bilirubin 0.4 (0.2-1.3) mg/dL AST 28 (14-36) U/L ALT 40 (9-52) U/L Alkaline Phosphatase 44 (38-126) U/L Total Protein 6.8 (6.3-8.2) g/dL Albumin 4.2 (3.5-5.0) g/dL - Imaging CT scan - abdomen: report reviewed, image reviewed Assessment and Plan (1) Malrotation of intestine Status: Acute (2) Abdominal pain Status: Acute Plan: There does not appear to be an obstruction or small bowel volvulus causing the pain. CT findings are consistent with her known malrotation. Recommend hydration, pain control, serial exam. Possibly repeat the computed tomography scan with contrast if she is not improved by the morning. Further recommendations to follow.
--- NOTE | 2017-04-01 15:08 | P.HPIM ---
History of Present Illness H&P Date: 04/01/17 Chief Complaint: Abdominal pain Carisa Payne is a 31-year-old female who was at a family gathering when she started developing some cramps in the lower abdomen. Later in the day, as she was driving home, the pain got worse. At the time she wondered if she could be having a miscarriage. No vaginal bleeding or drainage. No nausea or vomiting. She's never had anything like this past. She had a normal bowel movement 2 yesterday morning. There is no blood in the stool or dark tarry stool. 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 She has been seen for this in the past by Dr. Curry. She had EGD and colonoscopy 7 years ago because she had severe anemia at that time. Past Medical History Past Medical History: Asthma Additional Past Medical History / Comment(s): migraines, anemia, ovarian cyst History of Any Multi-Drug Resistant Organisms: None Reported Past Surgical History: Adenoidectomy, Orthopedic Surgery Additional Past Surgical History / Comment(s): bunionectomy, ovarian cyst removal, d&c Past Psychological History: Anxiety Smoking Status: Never smoker Past Alcohol Use History: None Reported Past Drug Use History: None Reported Medications and Allergies Home Medications Medication Instructions Recorded Confirmed Type Cetirizine HCl [Zyrtec] 10 mg PO HS 01/06/17 04/01/17 History Multivitamins, Thera [Multivitamin 1 tab PO HS 01/06/17 04/01/17 History (formulary)] Amitriptyline HCl 25 mg PO HS 04/01/17 04/01/17 History Allergies Allergy/AdvReac Type Severity Reaction Status Date / Time Iodinated Contrast- Oral and Allergy Severe Cardiac Verified 04/01/17 11:09 IV Dye Arrest [Iodinated Contrast Media - Oral and] anderson Allergy Anaphylaxis Verified 04/01/17 11:09 erythromycin ethylsuccinate Allergy Rash/Hives Verified 04/01/17 11:09 [From Pediazole] etonogestrel [From Nexplanon] Allergy Rash/Hives Verified 04/01/17 11:09 Penicillins Allergy Rash/Hives Verified 04/01/17 11:09 Sulfa (Sulfonamide Allergy Rash/Hives Verified 04/01/17 11:09 Antibiotics) sulfisoxazole acetyl Allergy Rash/Hives Verified 04/01/17 11:09 [From Pediazole] loratadine [From Claritin-D] AdvReac Nausea & Verified 03/31/17 21:41 Vomiting pseudoephedrine AdvReac Nausea & Verified 03/31/17 21:41 [From Claritin-D] Vomiting Physical Exam Vitals: Vital Signs Temp Pulse Pulse Resp BP BP Pulse Ox 04/01/17 08:00 98.2 F 76 16 100/59 99 04/01/17 02:06 18 04/01/17 01:20 97.9 F 93 18 125/67 95 03/31/17 23:43 98.8 F 86 16 102/57 100 03/31/17 21:38 99.4 F 81 18 128/84 100 Intake and Output 04/01/17 04/01/17 04/01/17 06:59 14:59 22:59 Other: # Voids 1 Weight 66.678 kg In general patient is alert and oriented 3 in no apparent distress HEENT head normocephalic and atraumatic Neck is supple no JVD no goiter no lymphadenopathy Chest is clear to auscultation no wheezing Cardiac exam reveals regular heart sounds no gallops no murmurs Abdomen is soft with moderate to severe tenderness in the periumbilical area no organomegaly, no palpable masses bowel sounds are normal in all 4 quadrants no rigidity or rebound Extremity exam reveals no edema no cyanosis or clubbing Results CBC & Chem 7: 03/31/17 22:53 03/31/17 22:53 Labs: Abnormal Lab Results - Last 24 Hours (Table) 03/31/17 Range/Units 21:45 Ur Leukocyte Esterase Trace H (Negative) Urine Bacteria Rare H (None) /hpf Urine Mucus Rare H (None) /hpf Assessment and Plan Plan: #1 acute abdominal pain that started within the last 48 hours #2 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 Cottrell, no evidence of anemia at this time At this time will continue to monitor follow symptomatically may need to repeat computed tomography scan in a.m. if symptoms not resolving
[2017-04-01 15:28] LABS: % Iron Saturation 16.4 % (20-50)
[2017-04-01] MEDS: AMITRIPTYLINE HCL 10 MG TAB PO SCH ×2 (20:56→21:03)
[2017-04-02] MEDS: MORPHINE SULFATE 4 MG/ML SYRINGE IV PRN ×5 (06:48→22:50)
[2017-04-02 07:21] LABS: ALT 34 U/L (9-52); AST 22 U/L (14-36); Alkaline Phosphatase 38 U/L (38-126); Anion Gap 5 mmol/L; Blood Urea Nitrogen 9 mg/dL (7-17); Calcium 8.3 mg/dL (8.4-10.2); Carbon Dioxide 26 mmol/L (22-30); Chloride 108 mmol/L (98-107); Glucose 78 mg/dL (74-99); Non-African American GFR(MDRD) >60 (>60 ml/min/1.73 sqM); Potassium 3.9 mmol/L (3.5-5.1); Sodium 139 mmol/L (137-145); Total Bilirubin 0.7 mg/dL (0.2-1.3); Total Protein 5.8 g/dL (6.3-8.2)
[2017-04-02 07:28] LABS: Basophils % (A) 1 %; CH 28.8; CHCM 32.6; Eosinophils # (A) 0.1 k/uL (0-0.7); Eosinophils % (A) 3 %; HCT 39.8 % (34.0-46.0); HDW 2.31; HGB 13.2 gm/dL (11.4-16.0); Luc # (Auto) 0.09; Luc % (Auto) 2; Lymphocytes # (A) 1.4 k/uL (1.0-4.8); Lymphocytes % (A) 34 %; MCH 29.4 pg (25.0-35.0); MCHC 33.2 g/dL (31.0-37.0); MCV 88.6 fL (80.0-100.0); Monocytes # (A) 0.3 k/uL (0-1.0); Monocytes % (A) 6 %; Neutrophils # (A) 2.1 k/uL (1.3-7.7); Neutrophils % (A) 54 %; RBC 4.49 m/uL (3.80-5.40); RDW 12.7 % (11.5-15.5); WBC (Perox) 4.31
[2017-04-02] MEDS: KETOROLAC 30 MG/ML 1 ML VIAL IVP PRN (08:32)
[2017-04-02] MEDS ORDERED: IOHEXOL 350 MG/ML 25 ML BOTTLE (ORAL USE) PO PRN (11:00)
[2017-04-02] MEDS ORDERED: BARIUM SULFATE 450 ML ORAL.SUSP BOTTLE PO ONE ×2 (11:06→14:15)
--- NOTE | 2017-04-02 11:06 | P.PN ---
Subjective Patient was seen by me today for follow-up. She is still having significant pain. She is rating her pain as 7 out of 10 in severity. She did not have a bowel movement since Sunday morning. She was eating and drinking and currently on soft diet with no difficulty. Her initial noncontrast CT of the abdomen showed findings concerning for pericecal internal hernia. Objective - Vital Signs Vital signs: Vital Signs Temp 97.9 F 04/02/17 08:00 Pulse 92 04/02/17 08:00 Resp 16 04/02/17 08:00 BP 111/67 04/02/17 08:00 Pulse Ox 97 04/02/17 08:00 Intake & Output 04/01/17 04/02/17 04/02/17 18:59 06:59 18:59 Other: # Voids 3 1 - Exam General: The patient is awake and alert, in no distress Eye: there is normal conjunctiva bilaterally. Neck: The neck is supple, there is no JVD. Cardiovascular: Normal S1-S2, no S3-S4, no murmurs. Respiratory: Lungs clear to auscultation bilaterally Gastrointestinal: Abdomen is soft,. There is moderate tenderness to palpation in the lower abdomen Musculoskeletal: There is no pedal edema. Neurological:. Speech is normal. Skin: Skin is warm and dry - Labs CBC & Chem 7: 04/02/17 06:50 04/02/17 06:50 Labs: Abnormal Lab Results - Last 24 Hours (Table) 03/31/17 04/02/17 Range/Units 22:53 06:50 Chloride 108 H (98-107) mmol/L Calcium 8.3 L (8.4-10.2) mg/dL % Saturation 16.4 L (20-50) % Total Protein 5.8 L (6.3-8.2) g/dL Albumin 3.4 L (3.5-5.0) g/dL Assessment and Plan Plan: 1. Acute abdominal pain 2. Suspected pericecal internal hernia 3. History of small bowel malrotation Today, I reviewed her medication list and lab work results. I would order a repeat computed tomography scan of the abdomen with oral contrast. I would change her diet to nothing by mouth for now. Awaiting general surgery evaluation.
--- NOTE | 2017-04-02 16:01 | P.PN ---
Subjective Principal diagnosis: Abdominal pain Patient still having abdominal pain. She states it comes in waves and there are periods of time where there is no pain. The cramps usually last for a minute or 2. No bowel movement since Sunday. She is passing flatus. No nausea or vomiting. Repeat CT abdomen and pelvis with oral contrast is ordered. Today's white blood cell count was normal. She is afebrile without tachycardia. Objective - Vital Signs Vital signs: Vital Signs Temp 97.9 F 04/02/17 08:00 Pulse 92 04/02/17 08:00 Resp 16 04/02/17 08:00 BP 111/67 04/02/17 08:00 Pulse Ox 97 04/02/17 08:00 Intake & Output 04/01/17 04/02/17 04/02/17 18:59 06:59 18:59 Other: # Voids 3 1 - Exam Abdomen: Soft, nondistended, mild epigastric tenderness - Labs CBC & Chem 7: 04/02/17 06:50 04/02/17 06:50 Labs: Abnormal Lab Results - Last 24 Hours (Table) 04/02/17 Range/Units 06:50 Chloride 108 H (98-107) mmol/L Calcium 8.3 L (8.4-10.2) mg/dL Total Protein 5.8 L (6.3-8.2) g/dL Albumin 3.4 L (3.5-5.0) g/dL Assessment and Plan (1) Abdominal pain Narrative/Plan: Agree with plans for repeat CT abdomen and pelvis with oral contrast. Suspect some of the patient's pain may be on the basis of constipation given the degree of stool burden seen on the initial CAT scan. May resume diet after CAT scan performed. Will follow with you. Status: Acute
--- NOTE | 2017-04-02 16:36 | CONS ---
DATE OF SERVICE: 04/02/2017 REASON FOR CONSULTATION: Abdominal pain. HISTORY OF PRESENT ILLNESS: The patient is a 31-year-old pleasant lady who was admitted to the hospital yesterday when she presented with acute onset of lower abdominal pain that started on Sunday afternoon. The pain continued to progressively get worse all through the day. She had some diarrhea the day before but on the onset of these symptoms her bowel movements were normal. She denies any rectal bleeding or melena. She felt somewhat nauseated but no emesis. The pain progressively got worse and radiated to the periumbilical area and into the epigastric area and she got very concerned, came to the emergency room and subsequently admitted for further evaluation. She did have a CT of the abdomen and pelvis done at the time of admission that showed evidence of malrotation but no evidence of obstruction. However, the CT was done without any contrast. The patient denies ever having these symptoms in the past. She was diagnosed with IBS in the past but she has intermittent diarrhea with certain foods, especially dairy. Recently has no fever, chills or night sweats. No recent weight loss. She did have an EGD and colonoscopy by Dr. Curry as a part of evaluation of anemia about seven years ago and according to the patient it was within normal limits. PAST MEDICAL HISTORY: Significant for asthma and IBS as well as migraines. PAST SURGICAL HISTORY: Tonsillectomy and adenoidectomy, ovarian cyst removal and D&C. MEDICATIONS AT HOME: Amitriptyline and multivitamin, Zyrtec p.r.n. ALLERGIES: IV DYE, EMYCIN, PENICILLIN, SULFA AND CLARITIN. SOCIAL HISTORY: No smoking, no alcohol use. FAMILY HISTORY: Unremarkable. REVIEW OF SYSTEMS: CARDIOPULMONARY: She denies any chest pain, no shortness of breath. GENITOURINARY: No dysuria or hematuria. MUSCULOSKELETAL: Unremarkable. SKIN: Unremarkable. ENDOCRINE: Unremarkable. SKIN: Unremarkable. ENDOCRINE: Unremarkable. PSYCHIATRIC: Unremarkable. NEUROLOGY: Unremarkable. ENT: Vision unremarkable. CONSTITUTIONAL: No recent weight loss. No fever, chills, night sweats. HEMATOLOGY: Unremarkable. PHYSICAL EXAMINATION: VITAL SIGNS: Blood pressure 87/52, pulse rate 61, temperature 97.7. HEENT: Unremarkable. Conjunctivae pink. Sclerae anicteric. Oral cavity, no lesions. No JVD or lymph node enlargement. CHEST: Clear to auscultation. HEART: Regular rate and rhythm. ABDOMEN: Soft. There was mild tenderness diffusely all over the abdomen but it was not distended. No rebound or rigidity. EXTREMITIES: No pedal edema. SKIN: No rashes. NEURO: Alert and oriented x3. No focal deficits. LABS: WBC 6, hemoglobin 13.7. Platelets 200. Basic metabolic panel is normal. ALT, AST, bili and alk phos are normal. Amylase and lipase are normal. Urinalysis was negative. IMPRESSION: This young lady presents with acute onset of crampy lower abdominal pain for the last two days duration with some diarrhea initially but no rectal bleeding or melena. CT of the abdomen and pelvis without contrast did show evidence of malrotation of the gut but no evidence of obstruction. Clinically she continues doing the same and continues to have persistent pain. RECOMMENDATIONS: 1. Agree with repeat CT of the abdomen and pelvis with contrast. 2. In the meantime I will try some symptomatic therapy with antispasmodics, Bentyl 10 mg three times daily. She will continue with low residual diet and will follow her closely during hospital stay. Thank you for this consultation. ARABELLA
--- NOTE | 2017-04-02 16:46 | CT ---
EXAMINATION TYPE: CT abdomen pelvis wo con DATE OF EXAM: 04/02/2017 COMPARISON: CT abdomen pelvis dated 03/31/2017 CT abdomen pelvis dated 07/16/2010. HISTORY: Abdominal pain. CT DLP: 297.8 mGycm Automated exposure control for dose reduction was used. TECHNIQUE: Helical acquisition of images was performed from the lung bases through the pelvis. FINDINGS: LUNG BASES: No significant abnormality is appreciated. LIVER/GB: No significant abnormality is appreciated. PANCREAS: No significant abnormality is seen. SPLEEN: No significant abnormality is seen. ADRENALS: No significant abnormality is seen. KIDNEYS: No significant abnormality is seen. FREE AIR: No free air is visualized RETROPERITONEAL ADENOPATHY: None visualized REPRODUCTIVE ORGANS: No significant abnormality is seen URINARY BLADDER: No significant abnormality is seen. PELVIC ADENOPATHY: None visualized. OSSEOUS STRUCTURES: No significant abnormality is seen. BOWEL: Although the majority of the fluid-filled nondilated loops of small bowel are clustered withi n the right lower quadrant posterior to the cecum, this finding is unchanged dating back to the exam of 07/16/2010. Therefore, this finding more likely relates to a chronic degree of malrotation, which may be congenital in nature. The SMV is abnormally oriented in relation to the SMA. Oral contrast is noted within the colon, therefore there is no complete obstruction within the bowel. IMPRESSION: CHRONIC MALPOSITIONING OF NUMEROUS LOOPS OF SMALL BOWEL WITHIN THE RIGHT LOWER QUADRANT WITHOUT EVIDE NCE OF OBSTRUCTION THERE IS CONTRAST EXTENDING INTO THE COLON. FINDING IS SIMILAR DATING BACK TO 09/15/2009 AND LIKELY RELATES TO A DEGREE OF CONGENITAL MALROTATION. SOME OF THE SMALL BOWEL LOOPS ARE PROMINENT AND MAY RELATE TO ILEUS.
[2017-04-02] MEDS: DICYCLOMINE 10 MG CAP PO PRN (18:30)
[2017-04-02] MEDS: SODIUM CHLORIDE 0.9% 1,000 ML IV SCH ×3 (19:41→19:49)
[2017-04-02] MEDS: FAMOTIDINE 20 MG/2 ML VIAL IV SCH (20:28)
[2017-04-02] MEDS: AMITRIPTYLINE HCL 25 MG TAB PO SCH (20:57)
[2017-04-02] MEDS: ONDANSETRON 4 MG/2 ML VIAL IVP PRN (22:51)
[2017-04-03] MEDS: MORPHINE SULFATE 4 MG/ML SYRINGE IV PRN ×4 (02:41→17:29)
[2017-04-03] MEDS: ONDANSETRON 4 MG/2 ML VIAL IVP PRN (07:49)
[2017-04-03] MEDS: FAMOTIDINE 20 MG/2 ML VIAL IV SCH (08:36)
[2017-04-03] MEDS: DICYCLOMINE 10 MG CAP PO PRN (11:23)
--- NOTE | 2017-04-03 12:48 | P.PN ---
Subjective Principal diagnosis: Abdominal pain Patient says her pain remains intermittent and crampy in nature. She still has not had a bowel movement. Denies nausea or vomiting. Tolerating some of her diet. Repeat CAT scan shows no definite obstruction. Objective - Vital Signs Vital signs: Vital Signs Temp 98.2 F 04/03/17 12:00 Pulse 74 04/03/17 12:00 Resp 18 04/03/17 12:00 BP 97/61 04/03/17 12:00 Pulse Ox 97 04/03/17 12:00 Intake & Output 04/02/17 04/03/17 04/03/17 18:59 06:59 18:59 Intake Total 1150 Balance 1150 Intake: Intake, IV Titration 600 Amount Sodium Chloride 0.9% 1, 600 000 ml @ 50 mls/hr IV . Q20H CATY Rx#:[id number] Oral 550 Other: # Voids 3 - Exam Abdomen: Soft, mild upper abdominal tenderness - Labs CBC & Chem 7: 04/02/17 06:50 04/02/17 06:50 Assessment and Plan (1) Abdominal pain Narrative/Plan: Begin soapsuds enemas today. Continue diet as tolerated. Will follow. Status: Acute
--- NOTE | 2017-04-03 13:16 | P.PN ---
Subjective Principal diagnosis: Abdominal pain 31-year-old female admitted with crampy mid abdominal pain. No bowel movements. Denies nausea vomiting. Afebrile. Repeat computed tomography scan shows no obstruction. Right lower quadrant congenital malrotation of small bowel, these findings are unchanged from previous exam in 2009. General surgery following. Objective - Vital Signs Vital signs: Vital Signs Temp 98.2 F 04/03/17 12:00 Pulse 74 04/03/17 12:00 Resp 18 04/03/17 12:00 BP 97/61 04/03/17 12:00 Pulse Ox 97 04/03/17 12:00 Intake & Output 04/02/17 04/03/17 04/03/17 18:59 06:59 18:59 Intake Total 1150 Balance 1150 Intake: Intake, IV Titration 600 Amount Sodium Chloride 0.9% 1, 600 000 ml @ 50 mls/hr IV . Q20H CATY Rx#:[id number] Oral 550 Other: # Voids 3 - Exam General appearance: The patient is alert, oriented, in no acute distress. HET: Head is normocephalic and atraumatic. Pupils are equal and reactive. Oropharynx is clear without lesions. Neck: Supple without lymphadenopathy. Trachea midline. Heart: S1 S2. Regular rate and rhythm. Lungs: No crackles or wheezes are heard. Abdomen: Soft, mild upper abdominal tenderness, nondistended with bowel sounds. No peritoneal signs. No palpable organomegaly or masses. Extremities: Normal skin color and turgor. No cyanosis, rash, ulceration, clubbing, or edema. Radial and pedal pulses are 2/4 bilaterally. Neurological: No focal deficits. Strength and sensation are grossly intact. - Labs CBC & Chem 7: 04/02/17 06:50 04/02/17 06:50 Assessment and Plan (1) Abdominal pain Narrative/Plan: Nonspecific etiology unclear. Possible IBS-D. Computed tomography scan reports no obstruction. Right lower quadrant congenital malrotation of small bowel unchanged from previous exam in 2009. Status: Acute Plan: 1. Soapsuds enemas have been ordered by general surgery. Diet per surgery. No further workup from a GI standpoint. We'll follow as needed. Assessment and plan a care discussed with Dr. Rainey
[2017-04-03] MEDS ORDERED: NA PHOS,M-B/NA PHOS,DI-BA 133 ML ENEMA RECTAL ONE (13:29)
[2017-04-03] MEDS ORDERED: LACTULOSE 20 GM/30 ML CUP PO ONE (14:15)
--- NOTE | 2017-04-03 14:17 | P.PN ---
Subjective Patient said that her abdominal pain is not improving. She is having good appetite though. She is tolerating diet with no difficulty. No nausea or vomiting. Objective - Vital Signs Vital signs: Vital Signs Temp 98.2 F 04/03/17 12:00 Pulse 74 04/03/17 12:00 Resp 18 04/03/17 12:00 BP 97/61 04/03/17 12:00 Pulse Ox 97 04/03/17 12:00 Intake & Output 04/02/17 04/03/17 04/03/17 18:59 06:59 18:59 Intake Total 1150 360 Balance 1150 360 Intake: Intake, IV Titration 600 Amount Sodium Chloride 0.9% 1, 600 000 ml @ 50 mls/hr IV . Q20H CATY Rx#:[id number] Oral 550 360 Other: # Voids 3 - Exam General: The patient is awake and alert, in no distress Eye: there is normal conjunctiva bilaterally. Neck: The neck is supple, there is no JVD. Cardiovascular: Normal S1-S2, no S3-S4, no murmurs. Respiratory: Lungs clear to auscultation bilaterally Gastrointestinal: Abdomen is soft,. There is moderate tenderness to palpation in the lower abdomen Musculoskeletal: There is no pedal edema. Neurological:. Speech is normal. Skin: Skin is warm and dry - Labs CBC & Chem 7: 04/02/17 06:50 04/02/17 06:50 Assessment and Plan Plan: 1. Acute abdominal pain: Exact etiology unclear. May be attributed to underlying IBS. Seen and evaluated by GI. Now started on Bentyl. Repeat computed tomography scan of the abdomen showed chronic findings of malpositioning/malrotation of the small bowels. No obvious small bowel obstruction. General surgery following. We will give 1 dose of lactulose as constipation also may be contributing factor to her pain. 2. Suspected pericecal internal hernia: Ruled out with a repeat computed tomography scan of the abdomen 3. History of small bowel malrotation Today, I reviewed her medication list and lab work results. Advance diet as tolerated. Appreciate consultants intern's recommendations. Anticipate discharge home tomorrow.
[2017-04-03] MEDS: FAMOTIDINE 20 MG TAB PO SCH (20:06)
[2017-04-03] MEDS: AMITRIPTYLINE HCL 25 MG TAB PO SCH (20:06)
[2017-04-03] MEDS: KETOROLAC 30 MG/ML 1 ML VIAL IVP PRN (20:07)
[2017-04-04] MEDS: SODIUM CHLORIDE 0.9% 1,000 ML IV SCH (00:23)
[2017-04-04] MEDS: MORPHINE SULFATE 4 MG/ML SYRINGE IV PRN ×2 (00:23→05:55)
[2017-04-04 07:33] VITALS: BP 103/70; PULSE 85; RESP 16; TEMP 97.9
[2017-04-04] MEDS: FAMOTIDINE 20 MG TAB PO SCH (09:14)
--- NOTE | 2017-04-04 11:46 | P.DS ---
Providers Date of admission: 04/01/17 01:05 Expected date of discharge: 04/04/17 Attending physician: Lizbet Florian Consults: 04/01/17 01:01 Consult Physician Routine Consulting Provider: Torito Curry Consult Reason/Comments: abdominal pain. patient known to you. Do you want consulting provider notified?: Yes Primary care physician: Zoraida Deleon [facility] Course: 1. Acute abdominal pain: Exact etiology unclear. May be attributed to underlying IBS. Seen and evaluated by GI. Now started on Bentyl. Repeat computed tomography scan of the abdomen showed chronic findings of malpositioning/malrotation of the small bowels. No obvious small bowel obstruction. Patient was seen and evaluated by general surgery. Her constipation resolved after having an enema. On the day of discharge she was able to tolerate regular diet. She will follow-up with neurosurgery in her primary care physician in the office. 2. Suspected pericecal internal hernia: Ruled out with a repeat computed tomography scan of the abdomen 3. History of small bowel malrotation Patient Condition at Discharge: Fair Plan - Discharge Summary New Discharge Prescriptions: New Dicyclomine [Bentyl] 10 mg PO TID PRN #30 cap PRN Reason: Dyspepsia Sennosides-Docusate Sodium [Senokot-S] 1 tab PO DAILY PRN #30 tablet PRN Reason: Constipation Continue Multivitamins, Thera [Multivitamin (formulary)] 1 tab PO HS Cetirizine HCl [Zyrtec] 10 mg PO HS Amitriptyline HCl 25 mg PO HS Discharge Medication List Cetirizine HCl [Zyrtec] 10 mg PO HS 01/06/17 [History] Multivitamins, Thera [Multivitamin (formulary)] 1 tab PO HS 01/06/17 [History] Amitriptyline HCl 25 mg PO HS 04/01/17 [History] Dicyclomine [Bentyl] 10 mg PO TID PRN #30 cap 04/04/17 [Rx] Sennosides-Docusate Sodium [Senokot-S] 1 tab PO DAILY PRN #30 tablet 04/04/17 [ Rx] Follow up Appointment(s)/Referral(s): Zoraida Deleon MD [Primary Care Provider] - 1-2 days Patient Instructions/Handouts: Abdominal Pain (ED) Discharge Disposition: HOME SELF-CARE
--- NOTE | 2017-04-04 11:48 | P.PN ---
Subjective Principal diagnosis: Abdominal pain Patient still having upper abdominal discomforts. She points to the supraumbilical location. She says the pain is coming and going. It is better than it was on admission. It has improved only slightly since she started having bowel movements yesterday. Objective - Vital Signs Vital signs: Vital Signs Temp 97.9 F 04/04/17 07:32 Pulse 85 04/04/17 08:00 Resp 16 04/04/17 08:00 BP 103/70 04/04/17 07:32 Pulse Ox 98 04/04/17 07:32 Intake & Output 04/03/17 04/04/17 04/04/17 18:59 06:59 18:59 Intake Total 360 440 248 Balance 360 440 248 Intake: Oral 360 440 248 Other: Voiding Method Toilet Toilet Toilet # Voids 1 2 # Bowel Movements 1 1 - Exam Abdomen: Soft, mild upper abdominal tenderness, no rebound or guarding - Labs CBC & Chem 7: 04/02/17 06:50 04/02/17 06:50 Assessment and Plan (1) Abdominal pain Narrative/Plan: Continue diet as tolerated. The clinical scenario was discussed in detail with the patient today. We don't have an exact etiology for her discomfort at this point. Possibility of underlying peptic ulcer disease was discussed. We will send her home with a prescription for antiacid therapy. If her pain increases while at home she was asked to return to the hospital. Upper endoscopy will be considered if her pain persists. Patient will follow up me in 1-2 weeks. Status: Acute
== END 2017-04-04 13:30 | disposition home or self-care (01) ==
LOC: EC 21:37 → 3OBS 04-01 01:05
PROVIDERS: ADMIT Internal Medicine; ATTEND Internal Medicine
DX: R10.31 Right lower quadrant pain (principal); R10.32 Left lower quadrant pain; J45.909 Unspecified asthma, uncomplicated; G43.909 Migraine, unspecified, not intractable, without status migrainosus; K58.0 Irritable bowel syndrome with diarrhea; R10.816 Epigastric abdominal tenderness; K59.00 Constipation, unspecified; R11.0 Nausea; F41.9 Anxiety disorder, unspecified; Q43.3 Congenital malformations of intestinal fixation; Z79.899 Other long term (current) drug therapy; Z79.52 Long term (current) use of systemic steroids; Z88.3 Allergy status to other anti-infective agents; Z91.041 Radiographic dye allergy status; Z88.0 Allergy status to penicillin; Z88.2 Allergy status to sulfonamides; Z88.8 Allergy status to other drugs, medicaments and biological substances; Z91.018 Allergy to other foods; Z86.2 Personal history of diseases of the blood and blood-forming organs and certain disorders involving the immune mechanism
CPT/HCPCS: 96361 ×2; 96375; 96376 ×4; 96374; 99285; 36415; 80053 ×2; 82150; 83540; 83550; 83690; 85025 ×2; 81001; 81025; 74176 ×2; G0378 ×4; J2270 ×4; J2405 ×3; J1885 ×3

== ENCOUNTER → 2017-05-31 | Outpatient (CLI) | payer OTHER ==
--- NOTE | 2017-05-31 09:28 | MR ---
EXAMINATION TYPE: MR brain/cspine wo DATE OF EXAM: 05/31/2017 8:52 AM COMPARISON: NONE HISTORY: Headaches Cervialgia Multiplanar and multispin-echo imaging of the brain was performed . The ventricles, basal cisterns and sulci overlying the cerebral convexities are within normal limits. There is no evidence for midline shift or mass effect. Acute intracranial hemorrhage or extra-axial collection is not evident. The brain parenchyma reveals no abnormal increased signal. No acute edema is identified. Mild mucosal thickening sphenoid sinus. Paranasal sinuses are otherwise well aerated. Mastoid air rani ls are well-aerated. IMPRESSION: Unremarkable MRI of the brain. Chronic sphenoid sinusitis. EXAMINATION TYPE: MR brain/cspine wo DATE OF EXAM: 05/31/2017 8:52 AM COMPARISON: NONE HISTORY: Headaches Cervialgia Multiplanar MultiSpin echo imaging of the cervical spine was performed. Comparison: none C2-C3: No evidence for degenerative disc disease. No disc bulge/herniation or protrusion. No Canal stenosis. Foramina are patent bilaterally. C3-C4: No evidence for degenerative disc disease. No disc bulge/herniation or protrusion. No Canal stenosis. Foramina are patent bilaterally. C4-C5: Borderline disc desiccation. Minimal posterior disc bulge. No herniation protrusion or central stenosis. No foraminal encroachment. C5-C6: No evidence for degenerative disc disease. No disc bulge/herniation or protrusion. No Canal stenosis. Foramina are patent bilaterally. C6-C7: Borderline disc desiccation. Minimal posterior disc bulge. No herniation protrusion or central stenosis. No foraminal encroachment. C7-T1: No evidence for degenerative disc disease. No disc bulge/herniation or protrusion. No Canal stenosis. Foramina are patent bilaterally. Cervical segments are intact. There is normal alignment. Cervical spinal cord is of normal signal. Craniovertebral junction relationships are within normal limits. IMPRESSION: 1. Borderline disc desiccation and minimal posterior disc bulging at C4-5 and C6-7.
== END | disposition home or self-care (01) ==
LOC: RADMRIMAIN 08:04
PROVIDERS: ATTEND Psychiatry & Neurology Neurology
DX: M50.221 Other cervical disc displacement at C4-C5 level (principal); R51 Headache
CPT/HCPCS: 70551; 72141

== ENCOUNTER 2017-09-19 22:03 | Emergency (ER) | payer OTHER ==
[2017-09-19 22:18] VITALS: RESP 18
--- NOTE | 2017-09-19 23:11 | ED ---
Female Urogenital HPI - General Chief complaint: Urogenital Stated complaint: Female Time Seen by Provider: 09/19/17 22:26 Source: patient, RN notes reviewed Mode of arrival: ambulatory Limitations: no limitations - History of Present Illness Initial comments: This is a 32-year-old female who presents to the emergency department with chief complaint of vaginal itching and burning. Patient states that she has had yeast infections multiple times in the past that were treated successfully with [id number] medication. Patient states that she typically gets them after ending her monthly cycles. Patient states that she ended her last menstrual period Sunday night. Yesterday morning, patient began to have vaginal itching, burning and a thick, white discharge. Patient denies any chance of sexually transmitted diseases. She states that she has been with her for the past 11 years and has had no other partner since. Patient states she is unsure if she could possibly be . Patient denies any urinary symptoms such as dysuria, hematuria or increased frequency. Denies fever , chills, chest pain, shortness of breath, abdominal pain, nausea or vomiting, constipation or diarrhea, numbness or tingling, headache or vision changes. - Related Data Home Medications Medication Instructions Recorded Confirmed Cetirizine HCl [Zyrtec] 10 mg PO HS 01/06/17 09/19/17 Amitriptyline HCl 25 mg PO HS 04/01/17 09/19/17 Albuterol Inhaler [Ventolin Hfa 2 puff INHALATION RT-Q6H PRN 09/19/17 09/19/17 Inhaler] Ferrous Sulfate [Feosol] 325 mg PO HS 09/19/17 09/19/17 Ibuprofen [Motrin] 800 mg PO TID PRN 09/19/17 09/19/17 Pnv No.95/Ferrous Fum/Folic AC 1 tab PO HS 09/19/17 09/19/17 [ Multivitamin Tablet] Sumatriptan Unknown Dose 1 tab PO DAILY PRN 09/19/17 09/19/17 Previous Rx's Medication Instructions Recorded Fluconazole [Diflucan] 150 mg PO DAILY #2 tab 09/19/17 Allergies Allergy/AdvReac Type Severity Reaction Status Date / Time Iodinated Contrast- Oral and Allergy Severe Cardiac Verified 09/19/17 22:48 IV Dye Arrest [Iodinated Contrast Media - Oral and] anderson Allergy Anaphylaxis Verified 09/19/17 22:48 erythromycin ethylsuccinate Allergy Rash/Hives Verified 09/19/17 22:48 [From Pediazole] etonogestrel [From Nexplanon] Allergy Rash/Hives Verified 09/19/17 22:48 Penicillins Allergy Rash/Hives Verified 09/19/17 22:48 Sulfa (Sulfonamide Allergy Rash/Hives Verified 09/19/17 22:48 Antibiotics) sulfisoxazole acetyl Allergy Rash/Hives Verified 09/19/17 22:48 [From Pediazole] loratadine [From Claritin-D] AdvReac Nausea & Verified 09/19/17 22:48 Vomiting pseudoephedrine AdvReac Nausea & Verified 09/19/17 22:48 [From Claritin-D] Vomiting Review of Systems ROS Statement: Those systems with pertinent positive or pertinent negative responses have been documented in the HPI. ROS Other: All systems not noted in ROS Statement are negative. Past Medical History Past Medical History: Asthma Additional Past Medical History / Comment(s): migraines, anemia, ovarian cyst History of Any Multi-Drug Resistant Organisms: None Reported Past Surgical History: Adenoidectomy, Orthopedic Surgery Additional Past Surgical History / Comment(s): bunionectomy, ovarian cyst removal, d&c Past Psychological History: Anxiety Smoking Status: Never smoker Past Alcohol Use History: None Reported Past Drug Use History: None Reported General Exam - General Exam Comments Initial Comments: General: Awake and alert, well-developed; in no apparent distress. HEENT: Head atraumatic, normocephalic. Pupils are equal, round and reactive to light. Extraocular movements intact. Neck: Supple. Normal ROM. Cardiovascular: Regular rate and rhythm. No murmurs, rubs or gallops. Chest symmetrical. Respiratory: Lungs clear to auscultation bilaterally. No wheezes, rales or rhonchi. Normal respiratory effort with no use of accessory muscles. Musculoskeletal: Normal ROM, no tenderness bilateral upper and lower extremities. Ambulating normally. Skin: [place], warm and dry without rashes or lesions. Neurological: Alert and oriented x3. CN II-XII grossly intact. Speech is fluent and answers are appropriate. No focal neuro deficits. Psychiatric: Normal mood and affect. No overt signs of depression or anxiety noted. Limitations: no limitations External exam: Present: normal external exam. Absent: erythema, swelling, lesions Speculum exam: Present: vaginal discharge (thick white), cervical discharge ( thin white). Absent: erythema, vaginal bleeding Course Vital Signs 09/19/17 22:14 Temperature 98.5 F Pulse Rate 78 Respiratory 18 Rate Blood Pressure 128/76 O2 Sat by Pulse 98 Oximetry Medical Decision Making - Medical Decision Making This is a 32-year-old female who presents to the emergency department with chief complaint of vaginal itching, burning and discharge. On speculum examination, there is a thick, white discharge. Patient denies any chance of STDs. She's been with the same partner for the past 11 years. HCG urine was negative. UA revealed evidence of leukocyte esterase, however there were more epithelial cells noted than white blood cells. Urine will be sent for culture. Patient will be treated for a vaginal yeast infection with Diflucan. Patient instructed to take one, and if no improvement in 3 days she is to take another. Patient is in agreement with plan and voices understanding. All questions were answered. - Lab Data Lab Results 09/19/17 09/19/17 Range/Units 23:02 23:02 Urine Color Yellow Urine Appearance Cloudy H (Clear) Urine pH 7.0 (5.0-8.0) Ur Specific [place] 1.021 (1.001-1.035) Urine Protein Trace H (Negative) Urine Glucose (UA) Negative (Negative) Urine Ketones Negative (Negative) Urine Blood Moderate H (Negative) Urine Nitrite Negative (Negative) Urine Bilirubin Negative (Negative) Urine Urobilinogen 3.0 (<2.0) mg/dL Ur Leukocyte Esterase Moderate H (Negative) Urine RBC 7 H (0-5) /hpf Urine WBC 10 H (0-5) /hpf Ur Squamous Epith Cells 13 H (0-4) /hpf Urine Mucus Occasional H (None) /hpf Urine Yeast (Budding) Few H (None) /hpf Urine HCG, Qual Not Detected (Not Detectd) Disposition Clinical Impression: Vaginal yeast infection Disposition: HOME SELF-CARE Condition: Good Instructions: Vulvovaginal Candidiasis (ED) Additional Instructions: Please take medications as prescribed. Take one Diflucan tablet on day 1 and if there is no improvement in symptoms, may take another tablet on day 3. Please follow up with primary care provider within 1-2 days. Return to emergency department if symptoms should worsen or any concerns arise. Prescriptions: Fluconazole [Diflucan] 150 mg PO DAILY #2 tab Referrals: Zoraida Deleon MD [Primary Care Provider] - 1-2 days Time of Disposition: 23:21
[2017-09-19 23:13] LABS: Appearance,Urine Cloudy (Clear); Bilirubin,Urine Negative (Negative); Blood,Urine Moderate (Negative); Budding Yeast,Urine Few /hpf; Color,Urine Yellow; Glucose,Urine (UA) Negative (Negative); Ketones,Urine Negative (Negative); Leukocyte Esterase,Urine Moderate (Negative); Mucus,Urine Occasional /hpf; Nitrite,Urine Negative (Negative); Protein,Urine Trace (Negative); RBC,Urine 7 /hpf (0-5); Specific Gravity,Urine 1.021 (1.001-1.035); Squamous Epithelial Cell,Urine 13 /hpf (0-4); WBC,Urine 10 /hpf (0-5)
[2017-09-19 23:26] VITALS: BP 113/79; PULSE 68; TEMP 97.6
== END 2017-09-19 23:26 | disposition home or self-care (01) ==
LOC: EC 22:03
DX: B37.3 Candidiasis of vulva and vagina (principal); D64.9 Anemia, unspecified; F41.9 Anxiety disorder, unspecified; Z79.899 Other long term (current) drug therapy; Z88.0 Allergy status to penicillin; Z88.1 Allergy status to other antibiotic agents; Z88.2 Allergy status to sulfonamides; Z88.8 Allergy status to other drugs, medicaments and biological substances; Z91.018 Allergy to other foods; Z91.041 Radiographic dye allergy status
CPT/HCPCS: 81001; 81025; 87086; 99283

== ENCOUNTER 2017-10-14 10:22 | Emergency (ER) | payer OTHER ==
[2017-10-14] MEDS ORDERED: DEXAMETHASONE SOD PHOSPHATE 10 MG/ML 1 ML VIAL IM STA (10:43)
--- NOTE | 2017-10-14 10:48 | ED ---
General Adult HPI - General Chief complaint: ENT Stated complaint: Sore throat Time Seen by Provider: 10/14/17 10:39 Source: patient, RN notes reviewed Mode of arrival: ambulatory Limitations: no limitations - History of Present Illness Initial comments: Patient is a pleasant 32-year-old female presenting to the emergency department with sore throat. Symptoms have progressed over the past couple of days. Patient states it hurts somewhat to talk. Patient states it also hurts to swallow. No difficulty breathing. Patient states her ears feel plugged. No fevers. - Related Data Home Medications Medication Instructions Recorded Confirmed Cetirizine HCl [Zyrtec] 10 mg PO HS 01/06/17 10/14/17 Amitriptyline HCl 25 mg PO HS 04/01/17 10/14/17 Albuterol Inhaler [Ventolin Hfa 2 puff INHALATION RT-Q6H PRN 09/19/17 10/14/17 Inhaler] Ferrous Sulfate [Feosol] 325 mg PO HS 09/19/17 10/14/17 Ibuprofen [Motrin] 800 mg PO TID PRN 09/19/17 10/14/17 Pnv No.95/Ferrous Fum/Folic AC 1 tab PO HS 09/19/17 10/14/17 [ Multivitamin Tablet] Sumatriptan Unknown Dose 1 tab PO DAILY PRN 09/19/17 10/14/17 Previous Rx's Medication Instructions Recorded Fluconazole [Diflucan] 150 mg PO DAILY #2 tab 09/19/17 Cephalexin [Keflex] 500 mg PO QID #40 cap 10/14/17 Allergies Allergy/AdvReac Type Severity Reaction Status Date / Time Iodinated Contrast- Oral and Allergy Severe Cardiac Verified 10/14/17 10:33 IV Dye Arrest [Iodinated Contrast Media - Oral and] anderson Allergy Anaphylaxis Verified 10/14/17 10:33 erythromycin ethylsuccinate Allergy Rash/Hives Verified 10/14/17 10:33 [From Pediazole] etonogestrel [From Nexplanon] Allergy Rash/Hives Verified 10/14/17 10:33 Penicillins Allergy Rash/Hives Verified 10/14/17 10:33 Sulfa (Sulfonamide Allergy Rash/Hives Verified 10/14/17 10:33 Antibiotics) sulfisoxazole acetyl Allergy Rash/Hives Verified 02/11/18 10:33 [From Pediazole] loratadine [From Claritin-D] AdvReac Nausea & Verified 10/14/17 10:33 Vomiting pseudoephedrine AdvReac Nausea & Verified 10/14/17 10:33 [From Claritin-D] Vomiting Review of Systems ROS Statement: Those systems with pertinent positive or pertinent negative responses have been documented in the HPI. ROS Other: All systems not noted in ROS Statement are negative. Constitutional: Denies: fever Eyes: Denies: eye pain ENT: Reports: ear pain, throat pain Respiratory: Denies: cough, dyspnea Cardiovascular: Denies: chest pain Endocrine: Denies: fatigue Gastrointestinal: Denies: abdominal pain Genitourinary: Denies: dysuria Musculoskeletal: Denies: back pain Skin: Denies: rash Neurological: Denies: weakness Past Medical History Past Medical History: Asthma Additional Past Medical History / Comment(s): migraines, anemia, ovarian cyst History of Any Multi-Drug Resistant Organisms: None Reported Past Surgical History: Adenoidectomy, Orthopedic Surgery Additional Past Surgical History / Comment(s): bunionectomy, ovarian cyst removal, d&c Past Psychological History: Anxiety Smoking Status: Never smoker Past Alcohol Use History: None Reported Past Drug Use History: None Reported General Exam Limitations: no limitations General appearance: alert, in no apparent distress Head exam: Present: atraumatic Eye exam: Present: normal appearance, PERRL ENT exam: Present: TM's normal bilaterally Expanded Throat exam: other (Uvula is mildly erythematous and swollen.). negative: R peritonsillar mass, L peritonsillar mass Neck exam: Present: normal inspection Respiratory exam: Present: normal lung sounds bilaterally Cardiovascular Exam: Present: regular rate, normal rhythm Extremities exam: Present: normal inspection Neurological exam: Present: alert Psychiatric exam: Present: normal affect, normal mood Skin exam: Present: normal color Course Vital Signs 10/14/17 10:33 Temperature 99.3 F Pulse Rate 84 Respiratory 18 Rate Blood Pressure 105/67 O2 Sat by Pulse 98 Oximetry Disposition Clinical Impression: Uvulitis Disposition: HOME SELF-CARE Condition: Stable Instructions: Uvulitis (ED) Additional Instructions: Please follow-up with primary care physician in the next couple days for recheck. Return for difficulty in breathing, not tolerating fluids, worsening symptoms or other concerns. [id number] Tylenol or Motrin as needed. Prescriptions: Cephalexin [Keflex] 500 mg PO QID #40 cap Referrals: Zoraida Deleon MD [Primary Care Provider] - 1-2 days Time of Disposition: 10:48
[2017-10-14 11:03] VITALS: BP 99/67; PULSE 83; RESP 16; TEMP 98.6
== END 2017-10-14 11:11 | disposition home or self-care (01) ==
LOC: EC 10:22
DX: K12.2 Cellulitis and abscess of mouth (principal); D64.9 Anemia, unspecified; F41.9 Anxiety disorder, unspecified; Z79.899 Other long term (current) drug therapy; Z88.0 Allergy status to penicillin; Z88.1 Allergy status to other antibiotic agents; Z88.2 Allergy status to sulfonamides; Z88.8 Allergy status to other drugs, medicaments and biological substances; Z91.018 Allergy to other foods; Z91.041 Radiographic dye allergy status; Z90.89 Acquired absence of other organs
CPT/HCPCS: 99282; 96372; J1100

== ENCOUNTER 2017-10-14 22:24 | Emergency (ER) | payer OTHER ==
[2017-10-14 22:30] VITALS: BP 110/70; PULSE 77; RESP 18; TEMP 98.5
--- NOTE | 2017-10-14 22:48 | ED ---
ENT HPI - General Chief complaint: ENT Stated complaint: sore throat & ears-revisit Time Seen by Provider: 10/14/17 22:32 Source: patient Mode of arrival: ambulatory Limitations: no limitations - History of Present Illness Initial comments: Patient presents with sore throat for the past 3 days. Patient denies earache, nasal congestion, rhinorrhea, headache, fevers, chills, nausea, vomiting, cough , shortness of breath, chest pains, myalgias, neck pain, arthralgias, joint swelling. Patient was seen in the ER earlier today, diagnosed with uvulitis, given prescription of Tylenol, Motrin, Keflex. Patient states she took the Keflex today, still has sore throat, so she came back to the ER. MD complaint: sore throat - Related Data Home Medications Medication Instructions Recorded Confirmed Cetirizine HCl [Zyrtec] 10 mg PO HS 01/06/17 10/14/17 Amitriptyline HCl 25 mg PO HS 04/01/17 10/14/17 Ferrous Sulfate [Feosol] 325 mg PO HS 09/19/17 10/14/17 Ibuprofen [Motrin] 800 mg PO TID PRN 09/19/17 10/14/17 Acetaminophen [Tylenol Extra 500 mg PO Q6HR PRN 10/14/17 10/14/17 Strength] Multivitamins, Thera [Multivitamin 1 tab PO DAILY 10/14/17 10/14/17 (formulary)] Previous Rx's Medication Instructions Recorded Acetaminophen Tab [Tylenol] 650 mg PO Q4H PRN #30 tablet 10/14/17 Amoxic-Pot Clav 875-125Mg 1 tab PO Q12HR 7 Days #14 tablet 10/14/17 [Augmentin 875-125] Ibuprofen [Motrin] 600 mg PO Q6HR PRN #20 tab 10/14/17 predniSONE 40 mg PO DAILY 3 Days #6 tab 10/14/17 Allergies Allergy/AdvReac Type Severity Reaction Status Date / Time Iodinated Contrast- Oral and Allergy Severe Cardiac Verified 10/14/17 22:44 IV Dye Arrest [Iodinated Contrast Media - Oral and] anderson Allergy Anaphylaxis Verified 10/14/17 22:44 erythromycin ethylsuccinate Allergy Rash/Hives Verified 10/14/17 22:44 [From Pediazole] etonogestrel [From Nexplanon] Allergy Rash/Hives Verified 10/14/17 22:44 Penicillins Allergy Rash/Hives Verified 10/14/17 22:44 Sulfa (Sulfonamide Allergy Rash/Hives Verified 10/14/17 22:44 Antibiotics) sulfisoxazole acetyl Allergy Rash/Hives Verified 10/14/17 22:44 [From Pediazole] loratadine [From Claritin-D] AdvReac Nausea & Verified 10/14/17 22:44 Vomiting pseudoephedrine AdvReac Nausea & Verified 10/14/17 22:44 [From Claritin-D] Vomiting Review of Systems ROS Statement: Those systems with pertinent positive or pertinent negative responses have been documented in the HPI. ROS Other: All systems not noted in ROS Statement are negative. Constitutional: Denies: fever, chills, weakness, weight change Eyes: Denies: eye pain, eye discharge, vision change ENT: Reports: throat pain. Denies: ear pain, dental pain, congestion Respiratory: Denies: cough, dyspnea, wheezes, stridor Cardiovascular: Denies: chest pain, palpitations Endocrine: Denies: fatigue Gastrointestinal: Denies: abdominal pain, nausea, vomiting Musculoskeletal: Denies: back pain, joint swelling, arthralgia, myalgia Skin: Denies: rash, change in color Neurological: Denies: headache Past Medical History Past Medical History: Asthma Additional Past Medical History / Comment(s): migraines, anemia, ovarian cyst History of Any Multi-Drug Resistant Organisms: None Reported Past Surgical History: Adenoidectomy, Orthopedic Surgery Additional Past Surgical History / Comment(s): bunionectomy, ovarian cyst removal, d&c Past Psychological History: Anxiety Smoking Status: Never smoker Past Alcohol Use History: None Reported Past Drug Use History: None Reported General Exam - General Exam Comments Initial Comments: Sitting in bed. No acute distress. Well-appearing. Not ill appearing Limitations: no limitations General appearance: alert, in no apparent distress Head exam: Absent: atraumatic, normocephalic Eye exam: Present: PERRL, EOMI. Absent: scleral icterus, conjunctival injection , periorbital swelling, periorbital tenderness Pupils: Present: normal accommodation ENT exam: Present: normal exam, TM's normal bilaterally, other (Mild Amer edema of the oropharynx. No exudates appreciated.) Neck exam: Present: normal inspection, full ROM, other (No lymphadenopathy appreciated). Absent: tenderness, meningismus, lymphadenopathy Respiratory exam: Present: normal lung sounds bilaterally. Absent: respiratory distress, wheezes, rales Cardiovascular Exam: Present: regular rate, normal rhythm GI/Abdominal exam: Present: soft. Absent: distended, tenderness, guarding, rebound, rigid Extremities exam: Present: normal inspection Neurological exam: Present: alert, oriented X3 Psychiatric exam: Present: normal affect, normal mood Skin exam: Present: warm, dry, intact, normal color. Absent: rash Course Vital Signs 10/14/17 22:26 Temperature 98.5 F Pulse Rate 77 Respiratory 18 Rate Blood Pressure 110/70 O2 Sat by Pulse 98 Oximetry Medical Decision Making - Medical Decision Making Patient with mild erythema of sore throat. Rapid strep positive Patient has been taking medications for less than 24 hours. Discussed need for continued monitoring his symptoms. No new symptoms and seen in the ER this morning. Patient has no associated symptoms with her sore throat. No signs of systemic illness. No signs of airway compromise. Patient is interested in controlling the pain. Discussed taking Tylenol scheduled every 4 hours, Motrin every 6 hours, dosing discussed, Rx's given. We'll switch patient to Augmentin. Patient states she thinks she might have had an ALLERGY to penicillin causing mild rash, agrees to monitor for side effects. Rx prednisone given. Follow up primary care physician in one to 2 days for reevaluation. Discussed sore throat lozenges, cold drinks, saltwater gargle, warm drinks. Patient understands and agrees. Feels comfortable being discharged home this time. Return here if new or worsening symptoms including difficulty breathing, throat swelling, fevers. Patient understands and agrees. - Lab Data Lab Results 10/14/17 Range/Units 22:40 Group A Strep Rapid Positive A (Negative) Disposition Clinical Impression: Strep throat Disposition: HOME SELF-CARE Condition: Good Instructions: Strep Throat (ED) Additional Instructions: Follow-up they're primary care physician in one to 2 days. Return to ER for new or worsening symptoms. Prescriptions: Acetaminophen Tab [Tylenol] 650 mg PO Q4H PRN #30 tablet PRN Reason: Pain Amoxic-Pot Clav 875-125Mg [Augmentin 875-125] 1 tab PO Q12HR 7 Days #14 tablet Ibuprofen [Motrin] 600 mg PO Q6HR PRN #20 tab PRN Reason: Pain predniSONE 40 mg PO DAILY 3 Days #6 tab Referrals: Zoraida Deleon MD [Primary Care Provider] - 1-2 days
== END 2017-10-14 23:09 | disposition home or self-care (01) ==
LOC: EC 22:24
DX: J02.0 Streptococcal pharyngitis (principal); F41.9 Anxiety disorder, unspecified; Z79.899 Other long term (current) drug therapy; Z88.0 Allergy status to penicillin; Z88.1 Allergy status to other antibiotic agents; Z88.2 Allergy status to sulfonamides; Z88.8 Allergy status to other drugs, medicaments and biological substances; Z91.018 Allergy to other foods; Z91.041 Radiographic dye allergy status
CPT/HCPCS: 87430; 99283

== ENCOUNTER 2017-11-01 18:19 | Emergency (ER) | payer OTHER ==
[2017-11-01 18:23] VITALS: BP 118/68; PULSE 94; RESP 20; TEMP 99.4
[2017-11-01] MEDS ORDERED: IBUPROFEN 600 MG TAB PO STA (18:34)
--- NOTE | 2017-11-01 18:37 | ED ---
General Adult HPI - General Chief complaint: ENT Stated complaint: Sore throat Time Seen by Provider: 11/01/17 18:26 Source: patient, RN notes reviewed Mode of arrival: ambulatory Limitations: no limitations - History of Present Illness Initial comments: 32 yo female presents to the ER with cc of sore throat. Patient wants to daycare. She states she's had a sore throat and left ear pain since Sunday. She's had chills without high fever. She has a cough cold. She did have strep at the beginning of the month. 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 She states there is been no nausea vomiting. No difficulty in breathing no cough. She was concerned due to the continued throat pain so she thought that she should be seen. She states her left ear has some discomfort as well. Patient denies any other symptoms at this time.Patient denies any recent fever, shortness of breath, chest pain, back pain, abdominal pain, nausea vomiting, numbness or tingling, dysuria or hematuria, constipation or diarrhea, headaches or visual changes, or any other current symptoms. - Related Data Home Medications Medication Instructions Recorded Confirmed Cetirizine HCl [Zyrtec] 10 mg PO HS 01/06/17 11/01/17 Amitriptyline HCl 25 mg PO HS 04/01/17 11/01/17 Ferrous Sulfate [Feosol] 325 mg PO HS 09/19/17 11/01/17 Ibuprofen [Motrin] 800 mg PO TID PRN 09/19/17 11/01/17 Acetaminophen [Tylenol Extra 500 mg PO Q6HR PRN 10/14/17 11/01/17 Strength] Multivitamins, Thera [Multivitamin 1 tab PO DAILY 10/14/17 11/01/17 (formulary)] Previous Rx's Medication Instructions Recorded Acetaminophen Tab [Tylenol] 650 mg PO Q4H PRN #30 tablet 10/14/17 Ibuprofen [Motrin] 600 mg PO Q6HR PRN #20 tab 10/14/17 Cephalexin [Keflex] 500 mg PO BID 10 Days cap 11/01/17 Allergies Allergy/AdvReac Type Severity Reaction Status Date / Time Iodinated Contrast- Oral and Allergy Severe Cardiac Verified 11/01/17 18:47 IV Dye Arrest [Iodinated Contrast Media - Oral and] anderson Allergy Anaphylaxis Verified 11/01/17 18:47 erythromycin ethylsuccinate Allergy Rash/Hives Verified 11/01/17 18:47 [From Pediazole] etonogestrel [From Nexplanon] Allergy Rash/Hives Verified 11/01/17 18:47 Penicillins Allergy Rash/Hives Verified 11/01/17 18:47 Sulfa (Sulfonamide Allergy Rash/Hives Verified 11/01/17 18:47 Antibiotics) sulfisoxazole acetyl Allergy Rash/Hives Verified 11/01/17 18:47 [From Pediazole] loratadine [From Claritin-D] AdvReac Nausea & Verified 11/01/17 18:47 Vomiting pseudoephedrine AdvReac Nausea & Verified 11/01/17 18:47 [From Claritin-D] Vomiting Review of Systems ROS Statement: Those systems with pertinent positive or pertinent negative responses have been documented in the HPI. ROS Other: All systems not noted in ROS Statement are negative. Past Medical History Past Medical History: Asthma Additional Past Medical History / Comment(s): migraines, anemia, ovarian cyst History of Any Multi-Drug Resistant Organisms: None Reported Past Surgical History: Adenoidectomy, Orthopedic Surgery Additional Past Surgical History / Comment(s): bunionectomy, ovarian cyst removal, d&c Past Psychological History: Anxiety Smoking Status: Never smoker Past Alcohol Use History: None Reported Past Drug Use History: None Reported General Exam - General Exam Comments Initial Comments: General exam: Alert, active, comfortable in no apparent distress Head: Normocephalic Eyes: Normal reaction of pupils, equal size, normal range of extraocular motion Ears: normal external ear canals, pink tympanic membranes with normal cone of light Nose: clear with pink turbinates Throat: no erythema or exudates with normal sized tonsils Neck: no masses, no nuchal rigidity Chest: no chest wall deformity Lungs: equal air entry with no crackles or wheeze CVS: S1 and S2 normal with no audible mumurs, regular rhythm Spine: no scoliosis or deformity Skin: no rashes Neurological: No focal deficits, tone is normal in all 4 extremities. Limitations: no limitations Course Vital Signs 11/01/17 18:21 Temperature 99.4 F Pulse Rate 94 Respiratory 20 Rate Blood Pressure 118/68 O2 Sat by Pulse 99 Oximetry Medical Decision Making - Medical Decision Making 32-year-old female presents for throat pain. At this time patient does appear to have strep. At this time we will start patient antibiotics. We discussed follow-up return parameters all questions. Patient is agreement this plan. All questions have been answered. They'll be discharged. Disposition Clinical Impression: Streptococcal sore throat Disposition: HOME SELF-CARE Condition: Stable Instructions: Strep Throat (ED) Additional Instructions: Please use medication as discussed. Please follow up with family doctor if symptoms have not improved over the next two days. Please return to the emergency room if your symptoms increase or worsen or for any other concerns. Prescriptions: Cephalexin [Keflex] 500 mg PO BID 10 Days cap Referrals: Zoraida Deleon MD [Primary Care Provider] - 1-2 days Time of Disposition: 19:24
== END 2017-11-01 19:57 | disposition home or self-care (01) ==
LOC: EC 18:19
DX: J02.0 Streptococcal pharyngitis (principal); D64.9 Anemia, unspecified; F41.9 Anxiety disorder, unspecified; Z79.899 Other long term (current) drug therapy; Z91.018 Allergy to other foods; Z88.0 Allergy status to penicillin; Z88.2 Allergy status to sulfonamides; Z91.041 Radiographic dye allergy status; Z88.8 Allergy status to other drugs, medicaments and biological substances
CPT/HCPCS: 87430; 99283

== ENCOUNTER 2017-12-08 21:50 | Emergency (ER) | payer OTHER ==
[2017-12-08 22:18] VITALS: RESP 18
[2017-12-08] MEDS ORDERED: IBUPROFEN 600 MG TAB PO STA (22:23)
[2017-12-08] MEDS ORDERED: ACETAMINOPHEN TAB 500 MG TAB PO STA (22:23)
[2017-12-08 22:38] LABS: Appearance,Urine Clear (Clear); Bilirubin,Urine Negative (Negative); Blood,Urine Negative (Negative); Color,Urine Yellow; Glucose,Urine (UA) Negative (Negative); Ketones,Urine 2+ (Negative); Leukocyte Esterase,Urine Negative (Negative); Nitrite,Urine Negative (Negative); PH, Urine 7.5 (5.0-8.0); Protein,Urine Trace (Negative); Specific Gravity,Urine 1.018 (1.001-1.035)
[2017-12-08 23:03] VITALS: BP 129/75; PULSE 102; TEMP 101
--- NOTE | 2017-12-08 23:36 | ED ---
URI HPI - General Chief Complaint: Upper Respiratory Infection Stated Complaint: Flu like symptoms Time Seen by Provider: 12/08/17 22:54 Source: patient Mode of arrival: ambulatory Limitations: no limitations - History of Present Illness Initial Comments: This patient is a 32-year-old woman who presents to be evaluated for constellation of symptoms that includes cough starting on Sunday, and then on the following day because of congestion, fever, body aches. Today she is having a little bit of bilateral ear pain. The patient notes that her daughter is having similar symptoms started on Sunday. She has tried some over-the- counter medications without much change. MD Complaint: fever, cough, nasal congestion Onset/Timin -: days(s) Severity: moderate Quality: aching Consistency: constant Improves With: nothing Worsens With: nothing Context: sick contacts Associated Symptoms: denies other symptoms, fever, myalgias, nasal congestion, cough Treatments Prior to Arrival: none - Related Data Home Medications Medication Instructions Recorded Confirmed Cetirizine HCl [Zyrtec] 10 mg PO HS 01/06/17 11/01/17 Amitriptyline HCl 25 mg PO HS 04/01/17 11/01/17 Ferrous Sulfate [Feosol] 325 mg PO HS 09/19/17 11/01/17 Ibuprofen [Motrin] 800 mg PO TID PRN 09/19/17 11/01/17 Acetaminophen [Tylenol Extra 500 mg PO Q6HR PRN 10/14/17 11/01/17 Strength] Multivitamins, Thera [Multivitamin 1 tab PO DAILY 10/14/17 11/01/17 (formulary)] Previous Rx's Medication Instructions Recorded Acetaminophen Tab [Tylenol] 650 mg PO Q4H PRN #30 tablet 10/14/17 Ibuprofen [Motrin] 600 mg PO Q6HR PRN #20 tab 10/14/17 Cephalexin [Keflex] 500 mg PO BID 10 Days cap 11/01/17 Allergies Allergy/AdvReac Type Severity Reaction Status Date / Time Iodinated Contrast- Oral and Allergy Severe Cardiac Verified 12/08/17 22:18 IV Dye Arrest [Iodinated Contrast Media - Oral and] anderson Allergy Anaphylaxis Verified 12/08/17 22:18 erythromycin ethylsuccinate Allergy Rash/Hives Verified 12/08/17 22:18 [From Pediazole] etonogestrel [From Nexplanon] Allergy Rash/Hives Verified 12/08/17 22:18 Penicillins Allergy Rash/Hives Verified 12/08/17 22:18 Sulfa (Sulfonamide Allergy Rash/Hives Verified 12/08/17 22:18 Antibiotics) sulfisoxazole acetyl Allergy Rash/Hives Verified 12/08/17 22:18 [From Pediazole] loratadine [From Claritin-D] AdvReac Nausea & Verified 12/08/17 22:18 Vomiting pseudoephedrine AdvReac Nausea & Verified 12/08/17 22:18 [From Claritin-D] Vomiting Review of Systems ROS Statement: Those systems with pertinent positive or pertinent negative responses have been documented in the HPI. ROS Other: All systems not noted in ROS Statement are negative. Constitutional: Reports: fever. Denies: weakness Eyes: Denies: eye pain Respiratory: Reports: cough. Denies: dyspnea, wheezes Cardiovascular: Denies: chest pain Gastrointestinal: Denies: abdominal pain, vomiting, diarrhea Genitourinary: Denies: dysuria, hematuria Musculoskeletal: Reports: myalgia. Denies: back pain, arthralgia Skin: Denies: rash Neurological: Reports: headache. Denies: weakness, numbness, paresthesias Past Medical History Past Medical History: Asthma Additional Past Medical History / Comment(s): migraines, anemia, ovarian cyst, History of Any Multi-Drug Resistant Organisms: None Reported Past Surgical History: Adenoidectomy, Orthopedic Surgery Additional Past Surgical History / Comment(s): bunionectomy, ovarian cyst removal, d&c, Past Psychological History: Anxiety Smoking Status: Never smoker Past Alcohol Use History: None Reported Past Drug Use History: None Reported General Exam Limitations: no limitations General appearance: alert, in no apparent distress Head exam: Present: atraumatic, normocephalic Eye exam: Present: normal appearance. Absent: scleral icterus, conjunctival injection ENT exam: Present: normal oropharynx, TM's normal bilaterally, normal external ear exam Neck exam: Present: normal inspection, full ROM. Absent: meningismus, lymphadenopathy Respiratory exam: Present: normal lung sounds bilaterally. Absent: respiratory distress, wheezes, rales, rhonchi, stridor Cardiovascular Exam: Present: regular rate, normal rhythm, normal heart sounds. Absent: systolic murmur, diastolic murmur, rubs, gallop GI/Abdominal exam: Present: soft. Absent: distended, tenderness, guarding, rebound, mass Extremities exam: Present: normal inspection, normal capillary refill. Absent: pedal edema, calf tenderness Back exam: Present: normal inspection. Absent: CVA tenderness (R), CVA tenderness (L) Neurological exam: Present: alert Skin exam: Present: warm, dry, intact, normal color. Absent: rash Course Vital Signs 12/08/17 12/08/17 22:15 23:03 Temperature 101.2 F H 101.0 F H Pulse Rate 111 H 102 H Respiratory 18 18 Rate Blood Pressure 112/75 129/75 O2 Sat by Pulse 97 95 Oximetry Medical Decision Making - Lab Data Lab Results 12/08/17 12/08/17 Range/Units 22:25 22:25 Urine Color Yellow Urine Appearance Clear (Clear) Urine pH 7.5 (5.0-8.0) Ur Specific [place] 1.018 (1.001-1.035) Urine Protein Trace H (Negative) Urine Glucose (UA) Negative (Negative) Urine Ketones 2+ H (Negative) Urine Blood Negative (Negative) Urine Nitrite Negative (Negative) Urine Bilirubin Negative (Negative) Urine Urobilinogen 2.0 (<2.0) mg/dL Ur Leukocyte Esterase Negative (Negative) Influenza Type A RNA Detected H (Not Detectd) Influenza Type B (PCR) Not Detected (Not Detectd) Disposition Clinical Impression: Influenza Disposition: HOME SELF-CARE Condition: Good Instructions: Influenza (ED) Referrals: Zoraida Deleon MD [Primary Care Provider] - 1-2 days
== END 2017-12-08 23:55 | disposition home or self-care (01) ==
LOC: EC 21:50
DX: J11.1 Influenza due to unidentified influenza virus with other respiratory manifestations (principal); H92.03 Otalgia, bilateral; F41.9 Anxiety disorder, unspecified; Z86.2 Personal history of diseases of the blood and blood-forming organs and certain disorders involving the immune mechanism; Z88.0 Allergy status to penicillin; Z88.1 Allergy status to other antibiotic agents; Z88.2 Allergy status to sulfonamides; Z88.8 Allergy status to other drugs, medicaments and biological substances; Z91.018 Allergy to other foods; Z91.048 Other nonmedicinal substance allergy status; Z79.899 Other long term (current) drug therapy
CPT/HCPCS: 81003; 87502; 99283

== ENCOUNTER 2018-04-18 19:27 | Emergency (ER) | payer OTHER ==
[2018-04-18] MEDS ORDERED: SODIUM CHLORIDE 0.9% 1,000 ML IV STA (21:59)
--- NOTE | 2018-04-18 22:03 | ED ---
Abdominal Pain HPI - General Chief Complaint: Abdominal Pain Stated Complaint: Abd Pain Time Seen by Provider: 04/18/18 21:48 Source: patient, RN notes reviewed Mode of arrival: ambulatory Limitations: no limitations - History of Present Illness Initial Comments: This is a 32-year-old female who presents to the emergency department with chief complaint of abdominal pain. Patient states that she has had right sided pelvic pain for the past 3 days. She states that on Sunday she developed nausea and vomiting and on Sunday developed diarrhea. Patient also reports a greenish vaginal discharge that is different from her normal. Denies abnormal vaginal bleeding. Denies fevers or chills. Patient does report a history of ovarian cysts. Denies dysuria or hematuria. - Related Data Home Medications Medication Instructions Recorded Confirmed Cetirizine HCl [Zyrtec] 10 mg PO HS 01/06/17 11/01/17 Amitriptyline HCl 25 mg PO HS 04/01/17 11/01/17 Ferrous Sulfate [Feosol] 325 mg PO HS 09/19/17 11/01/17 Ibuprofen [Motrin] 800 mg PO TID PRN 09/19/17 11/01/17 Acetaminophen [Tylenol Extra 500 mg PO Q6HR PRN 10/14/17 11/01/17 Strength] Multivitamins, Thera [Multivitamin 1 tab PO DAILY 10/14/17 11/01/17 (formulary)] Previous Rx's Medication Instructions Recorded Acetaminophen Tab [Tylenol] 650 mg PO Q4H PRN #30 tablet 10/14/17 Ibuprofen [Motrin] 600 mg PO Q6HR PRN #20 tab 10/14/17 Cephalexin [Keflex] 500 mg PO BID 10 Days cap 11/01/17 Allergies Allergy/AdvReac Type Severity Reaction Status Date / Time Iodinated Contrast- Oral and Allergy Severe Cardiac Verified 04/18/18 19:42 IV Dye Arrest [Iodinated Contrast Media - Oral and] anderson Allergy Anaphylaxis Verified 04/18/18 19:42 erythromycin ethylsuccinate Allergy Rash/Hives Verified 04/18/18 19:42 [From Pediazole] etonogestrel [From Nexplanon] Allergy Rash/Hives Verified 04/18/18 19:42 Penicillins Allergy Rash/Hives Verified 04/18/18 19:42 Sulfa (Sulfonamide Allergy Rash/Hives Verified 04/18/18 19:42 Antibiotics) sulfisoxazole acetyl Allergy Rash/Hives Verified 04/18/18 19:42 [From Pediazole] loratadine [From Claritin-D] AdvReac Nausea & Verified 04/18/18 19:42 Vomiting pseudoephedrine AdvReac Nausea & Verified 04/18/18 19:42 [From Claritin-D] Vomiting Review of Systems ROS Statement: Those systems with pertinent positive or pertinent negative responses have been documented in the HPI. ROS Other: All systems not noted in ROS Statement are negative. Past Medical History Past Medical History: Asthma Additional Past Medical History / Comment(s): migraines, anemia, ovarian cyst, History of Any Multi-Drug Resistant Organisms: None Reported Past Surgical History: Adenoidectomy, Orthopedic Surgery Additional Past Surgical History / Comment(s): bunionectomy, ovarian cyst removal, d&c, Past Psychological History: Anxiety Smoking Status: Never smoker Past Alcohol Use History: None Reported Past Drug Use History: None Reported General Exam - General Exam Comments Initial Comments: General: Awake and alert, well-developed; in no apparent distress. Does not appear acutely ill. HEENT: Head atraumatic, normocephalic. Pupils are equal, round and reactive to light. Extraocular movements intact. Oropharynx moist without erythema or exudate. Neck: Supple. Normal ROM. Cardiovascular: Regular rate and rhythm. No murmurs, rubs or gallops. Chest symmetrical. Respiratory: Lungs clear to auscultation bilaterally. No wheezes, rales or rhonchi. Normal respiratory effort with no use of accessory muscles. Abdomen: Soft, non-distended. Mild tenderness on palpation of right pelvic region. No rigidity, rebound or guarding. Normal bowel sounds in all 4 quadrants. Musculoskeletal: Normal ROM, no tenderness bilateral upper and lower extremities. Skin: [place], warm and dry without rashes or lesions. Neurological: Alert and oriented x3. CN II-XII grossly intact. Speech is fluent and answers are appropriate. No focal neuro deficits. Psychiatric: Normal mood and affect. No overt signs of depression or anxiety noted. Limitations: no limitations External exam: Present: normal external exam Speculum exam: Present: vaginal discharge, cervical discharge (thin, white non- odorous discharge). Absent: erythema, vaginal bleeding Course Vital Signs 04/18/18 04/18/18 19:42 22:19 Temperature 98.5 F Pulse Rate 96 88 Respiratory 18 19 Rate Blood Pressure 122/78 103/65 O2 Sat by Pulse 100 100 Oximetry Medical Decision Making - Medical Decision Making This is a 32-year-old female presents to the emergency department with chief complaint of pelvic pain. She also reports nausea, vomiting and diarrhea. On physical examination, there is tenderness on palpation of the right pelvic region. CBC and UA were unremarkable. CMP revealed a slightly low potassium at 3.4. Patient was given oral supplementation. Urine hCG is detected. Pelvic examination revealed a thin, white vaginal discharge without odor. I did obtain swabs for chlamydia, gonorrhea and Trichomonas. Trichomonas is negative. Patient denies any concern for STDs. She refuses treatment for STDs. Vaginal discharge is likely physiologic, however. A pelvic ultrasound was obtained and this did reveal a viable intrauterine at 5 weeks 5 days. No complicating processes were seen. This was discussed with patient at bedside who is tearful and states that she does not want to be . Patient has seen Dr. Heard who delivered her first child 11 years ago. He is medication manager today. He was contacted and spoke with attending physician, Dr. Gamble. Patient will be provided with follow-up contact information. Vitals are stable and she is in no acute distress. She will be discharged home at this time. All questions answered. - Lab Data Result diagrams: 04/18/18 22:05 04/18/18 22:05 Lab Results 04/18/18 04/18/18 04/18/18 Range/Units 22:05 22:05 22:05 WBC 7.5 (3.8-10.6) k/uL RBC 5.05 (3.80-5.40) m/uL Hgb 14.3 (11.4-16.0) gm/dL Hct 41.8 (34.0-46.0) % MCV 82.8 (80.0-100.0) fL MCH 28.3 (25.0-35.0) pg MCHC 34.2 (31.0-37.0) g/dL RDW 13.1 (11.5-15.5) % Plt Count 231 (150-450) k/uL Neutrophils % 66 % Lymphocytes % 25 % Monocytes % 6 % Eosinophils % 1 % Basophils % 0 % Neutrophils # 4.9 (1.3-7.7) k/uL Lymphocytes # 1.9 (1.0-4.8) k/uL Monocytes # 0.5 (0-1.0) k/uL Eosinophils # 0.1 (0-0.7) k/uL Basophils # 0.0 (0-0.2) k/uL Sodium 136 L (137-145) mmol/L Potassium 3.4 L (3.5-5.1) mmol/L Chloride 102 (98-107) mmol/L Carbon Dioxide 24 (22-30) mmol/L Anion Gap 10 mmol/L BUN 11 (7-17) mg/dL Creatinine 0.65 (0.52-1.04) mg/dL Est GFR (CKD-EPI)AfAm >90 (>60 ml/min/1.73 sqM) Est GFR (CKD-EPI)NonAf >90 (>60 ml/min/1.73 sqM) Glucose 93 (74-99) mg/dL Calcium 9.3 (8.4-10.2) mg/dL Total Bilirubin 0.7 (0.2-1.3) mg/dL AST 24 (14-36) U/L ALT 38 (9-52) U/L Alkaline Phosphatase 47 (38-126) U/L Total Protein 7.0 (6.3-8.2) g/dL Albumin 4.3 (3.5-5.0) g/dL Urine Color Urine Appearance (Clear) Urine pH (5.0-8.0) Ur Specific [place] (1.001-1.035) Urine Protein (Negative) Urine Glucose (UA) (Negative) Urine Ketones (Negative) Urine Blood (Negative) Urine Nitrite (Negative) Urine Bilirubin (Negative) Urine Urobilinogen (<2.0) mg/dL Ur Leukocyte Esterase (Negative) Urine RBC (0-5) /hpf Urine WBC (0-5) /hpf Ur Squamous Epith Cells (0-4) /hpf Amorphous Sediment (None) /hpf Urine Mucus (None) /hpf Urine HCG, Qual Detected (Not Detectd) Trichomonas Ag (Rapid) (Negative) 04/18/18 04/18/18 Range/Units 22:05 23:35 WBC (3.8-10.6) k/uL RBC (3.80-5.40) m/uL Hgb (11.4-16.0) gm/dL Hct (34.0-46.0) % MCV (80.0-100.0) fL MCH (25.0-35.0) pg MCHC (31.0-37.0) g/dL RDW (11.5-15.5) % Plt Count (150-450) k/uL Neutrophils % % Lymphocytes % % Monocytes % % Eosinophils % % Basophils % % Neutrophils # (1.3-7.7) k/uL Lymphocytes # (1.0-4.8) k/uL Monocytes # (0-1.0) k/uL Eosinophils # (0-0.7) k/uL Basophils # (0-0.2) k/uL Sodium (137-145) mmol/L Potassium (3.5-5.1) mmol/L Chloride (98-107) mmol/L Carbon Dioxide (22-30) mmol/L Anion Gap mmol/L BUN (7-17) mg/dL Creatinine (0.52-1.04) mg/dL Est GFR (CKD-EPI)AfAm (>60 ml/min/1.73 sqM) Est GFR (CKD-EPI)NonAf (>60 ml/min/1.73 sqM) Glucose (74-99) mg/dL Calcium (8.4-10.2) mg/dL Total Bilirubin (0.2-1.3) mg/dL AST (14-36) U/L ALT (9-52) U/L Alkaline Phosphatase (38-126) U/L Total Protein (6.3-8.2) g/dL Albumin (3.5-5.0) g/dL Urine Color Yellow Urine Appearance Cloudy H (Clear) Urine pH 6.5 (5.0-8.0) Ur Specific [place] 1.018 (1.001-1.035) Urine Protein Negative (Negative) Urine Glucose (UA) Negative (Negative) Urine Ketones Negative (Negative) Urine Blood Negative (Negative) Urine Nitrite Negative (Negative) Urine Bilirubin Negative (Negative) Urine Urobilinogen 4.0 (<2.0) mg/dL Ur Leukocyte Esterase Large H (Negative) Urine RBC 1 (0-5) /hpf Urine WBC 8 H (0-5) /hpf Ur Squamous Epith Cells 4 (0-4) /hpf Amorphous Sediment Rare H (None) /hpf Urine Mucus Rare H (None) /hpf Urine HCG, Qual (Not Detectd) Trichomonas Ag (Rapid) Negative (Negative) - Radiology Data Radiology results: report reviewed Obstetrical ultrasound impression: Viable IUP with gestational age of 5 weeks 5 days. No complicating process seen. Heart rate 146 bpm Disposition Clinical Impression: Disposition: HOME SELF-CARE Condition: Good Instructions: Nausea and Vomiting in (ED), (ED) Additional Instructions: Please follow up with METHODS ENGINEER. Please follow up with primary care provider within 1-2 days. Return to emergency department if symptoms should worsen or any concerns arise. Is patient prescribed a controlled substance at d/c from ED?: No Referrals: Zoraida Deleon MD [Primary Care Provider] - 1-2 days Juan Manuel Heard DO [Doctor of Osteopathic Medicine] - 1-2 days Time of Disposition: 00:20
[2018-04-18 22:25] LABS: Basophils % (A) 0 %; Eosinophils # (A) 0.1 k/uL (0-0.7); Eosinophils % (A) 1 %; HCT 41.8 % (34.0-46.0); HGB 14.3 gm/dL (11.4-16.0); Lymphocytes # (A) 1.9 k/uL (1.0-4.8); Lymphocytes % (A) 25 %; MCH 28.3 pg (25.0-35.0); MCHC 34.2 g/dL (31.0-37.0); MCV 82.8 fL (80.0-100.0); Mean Platelet Volume 7.2; Monocytes # (A) 0.5 k/uL (0-1.0); Monocytes % (A) 6 %; Neutrophils # (A) 4.9 k/uL (1.3-7.7); Neutrophils % (A) 66 %; Platelet Count 231 k/uL (150-450); RBC 5.05 m/uL (3.80-5.40); RDW 13.1 % (11.5-15.5); WBC 7.5 k/uL (3.8-10.6)
[2018-04-18 22:31] LABS: Amorphous Sediment,Urine Rare /hpf; Appearance,Urine Cloudy (Clear); Bilirubin,Urine Negative (Negative); Blood,Urine Negative (Negative); Color,Urine Yellow; Glucose,Urine (UA) Negative (Negative); Ketones,Urine Negative (Negative); Leukocyte Esterase,Urine Large (Negative); Mucus,Urine Rare /hpf; Nitrite,Urine Negative (Negative); PH, Urine 6.5 (5.0-8.0); Protein,Urine Negative (Negative); RBC,Urine 1 /hpf (0-5); Specific Gravity,Urine 1.018 (1.001-1.035); Squamous Epithelial Cell,Urine 4 /hpf (0-4); WBC,Urine 8 /hpf (0-5)
[2018-04-18 22:33] LABS: Chloride 102 mmol/L (98-107)
[2018-04-18 22:36] LABS: ALT 38 U/L (9-52); AST 24 U/L (14-36); Albumin 4.3 g/dL (3.5-5.0); Alkaline Phosphatase 47 U/L (38-126); Anion Gap 10 mmol/L; Blood Urea Nitrogen 11 mg/dL (7-17); Calcium 9.3 mg/dL (8.4-10.2); Carbon Dioxide 24 mmol/L (22-30); Glucose 93 mg/dL (74-99); Potassium 3.4 mmol/L (3.5-5.1); Sodium 136 mmol/L (137-145); Total Bilirubin 0.7 mg/dL (0.2-1.3)
[2018-04-18] MEDS ORDERED: POTASSIUM CHLORIDE ER 20 MEQ TAB.ER PO STA (22:53)
--- NOTE | 2018-04-18 23:23 | US ---
EXAMINATION TYPE: Transabdominal DATE OF EXAM: 12/04/17 COMPARISON: NONE CLINICAL HISTORY: Pain. Pain EXAM PERFORMED: Transvaginal (TV) and Transabdominal (TA) EXAM MEASUREMENTS: GESTATIONAL AGE / DATING Physician Established: Not yet established ) Dates by LMP: LMP unknown Dates by First Scan: No previous this is first scan Dates by Current Scan for: (5 weeks/5 days) EDC: 12/14/2018 MATERNAL ANATOMY Uterus: 9.8 x 5.7 x 7.0 cm Left Ovary: 3.5 x 2.5 x 2.5 cm Post CDS / Adnexa: wnl Presence of free fluid: no Presence of corpus luteal cyst: yes left ovary Presence of subchorionic bleed: no GESTATION / SURVEY CRL: 0.27 cm (5 weeks/6 days) MSD: 1.29cm (5 weeks/3 days) Yolk Sac (normal less than 6mm): 2mm Heart Rate: 146 bpm Rhythm: Normal IUP: Viable IUP Beta HcG (if available): Not available at this time Viable IUP 5w 5d GINO 12/14/2018 HR 146 BPM IMPRESSION: The ultrasound gestational age is 5 weeks 5 days. No complicating process seen.
[2018-04-19 00:39] VITALS: BP 106/89; PULSE 82; RESP 17; TEMP 98.6
== END 2018-04-19 00:39 | disposition home or self-care (01) ==
LOC: EC 19:27
DX: O99.89 Other specified diseases and conditions complicating pregnancy, childbirth and the puerperium (principal); R10.2 Pelvic and perineal pain; O21.9 Vomiting of pregnancy, unspecified; R19.7 Diarrhea, unspecified; Z3A.01 Less than 8 weeks gestation of pregnancy; O99.341 Other mental disorders complicating pregnancy, first trimester; F41.9 Anxiety disorder, unspecified; Z79.899 Other long term (current) drug therapy; Z91.041 Radiographic dye allergy status; Z88.2 Allergy status to sulfonamides; Z88.1 Allergy status to other antibiotic agents; Z88.8 Allergy status to other drugs, medicaments and biological substances; Z91.018 Allergy to other foods
CPT/HCPCS: 36415; 76801; 76817; 80053; 81001; 81025; 85025; 87086; 87491; 87591; 87808; 99284

== ENCOUNTER 2018-04-21 10:25 | Emergency (ER) | payer OTHER ==
[2018-04-21] MEDS ORDERED: SODIUM CHLORIDE 0.9% 1,000 ML IV STA (10:52)
[2018-04-21] MEDS ORDERED: ONDANSETRON 4 MG/2 ML VIAL IVP STA (10:52)
[2018-04-21 11:11] LABS: Basophils % (A) 0 %; Eosinophils % (A) 1 %; HCT 40.6 % (34.0-46.0); HGB 13.4 gm/dL (11.4-16.0); Lymphocytes # (A) 1.3 k/uL (1.0-4.8); Lymphocytes % (A) 20 %; MCH 27.5 pg (25.0-35.0); MCV 83.4 fL (80.0-100.0); Mean Platelet Volume 7.2; Monocytes # (A) 0.4 k/uL (0-1.0); Monocytes % (A) 7 %; Neutrophils # (A) 4.6 k/uL (1.3-7.7); Neutrophils % (A) 71 %; Platelet Count 213 k/uL (150-450); RBC 4.87 m/uL (3.80-5.40); RDW 13.2 % (11.5-15.5); WBC 6.4 k/uL (3.8-10.6)
[2018-04-21 11:20] LABS: Anion Gap 9 mmol/L; Blood Urea Nitrogen 10 mg/dL (7-17); Calcium 9.4 mg/dL (8.4-10.2); Carbon Dioxide 24 mmol/L (22-30); Chloride 105 mmol/L (98-107); Glucose 91 mg/dL (74-99); Magnesium 1.9 mg/dL (1.6-2.3); Potassium 3.9 mmol/L (3.5-5.1); Sodium 138 mmol/L (137-145)
--- NOTE | 2018-04-21 11:27 | ED ---
General Adult HPI - General Chief complaint: Nausea/Vomiting/Diarrhea Stated complaint: vomiting x 6 days Source: patient Mode of arrival: ambulatory Limitations: no limitations - History of Present Illness Initial comments: Dictation was produced using [employer] dictation software. please excuse any grammatical, word or spelling errors. Chief Complaint: 32-year-old female who was allegedly 6 weeks presents with persistent nausea and vomiting History of Present Illness: Seen here 2 days ago for the same complaint she was given intravenous fluids and discharged. Patient states that she has been having multiple episodes of nausea and vomiting throughout the day. Her emesis is described as nonbilious not bloody. Denies any pelvic pain. Denies any constitutional symptoms. She had an ultrasound performed 2 days ago showing ultrasound gestational age of 5 weeks and 5 days. Patient states she's had severe nausea and vomiting with her other pregnancies. She is The ROS documented in this emergency department record has been reviewed and confirmed by me. Those systems with pertinent positive or negative responses have been documented in the HPI. All other systems are other negative and/or noncontributory. - Related Data Home Medications Medication Instructions Recorded Confirmed Cetirizine HCl [Zyrtec] 10 mg PO HS 01/06/17 11/01/17 Amitriptyline HCl 25 mg PO HS 04/01/17 11/01/17 Ferrous Sulfate [Feosol] 325 mg PO HS 09/19/17 11/01/17 Ibuprofen [Motrin] 800 mg PO TID PRN 09/19/17 11/01/17 Acetaminophen [Tylenol Extra 500 mg PO Q6HR PRN 10/14/17 11/01/17 Strength] Multivitamins, Thera [Multivitamin 1 tab PO DAILY 10/14/17 11/01/17 (formulary)] Previous Rx's Medication Instructions Recorded Acetaminophen Tab [Tylenol] 650 mg PO Q4H PRN #30 tablet 10/14/17 Ibuprofen [Motrin] 600 mg PO Q6HR PRN #20 tab 10/14/17 Cephalexin [Keflex] 500 mg PO BID 10 Days cap 11/01/17 Doxylamine Succinate/Vit B6 1 each PO Q8H PRN #20 tab.ross. 04/21/18 [Bonjesta ER 20-20 mg Tablet] Ondansetron Odt [Zofran Odt] 4 mg PO Q8HR PRN #10 tab 04/21/18 Allergies Allergy/AdvReac Type Severity Reaction Status Date / Time Iodinated Contrast- Oral and Allergy Severe Cardiac Verified 04/21/18 10:32 IV Dye Arrest [Iodinated Contrast Media - Oral and] anderson Allergy Anaphylaxis Verified 04/21/18 10:32 erythromycin ethylsuccinate Allergy Rash/Hives Verified 04/21/18 10:32 [From Pediazole] etonogestrel [From Nexplanon] Allergy Rash/Hives Verified 04/21/18 10:32 Penicillins Allergy Rash/Hives Verified 04/21/18 10:32 Sulfa (Sulfonamide Allergy Rash/Hives Verified 04/21/18 10:32 Antibiotics) sulfisoxazole acetyl Allergy Rash/Hives Verified 04/21/18 10:32 [From Pediazole] loratadine [From Claritin-D] AdvReac Nausea & Verified 04/21/18 10:32 Vomiting pseudoephedrine AdvReac Nausea & Verified 04/21/18 10:32 [From Claritin-D] Vomiting Review of Systems ROS Statement: Those systems with pertinent positive or pertinent negative responses have been documented in the HPI. ROS Other: All systems not noted in ROS Statement are negative. Past Medical History Past Medical History: Asthma Additional Past Medical History / Comment(s): migraines, anemia, ovarian cyst, History of Any Multi-Drug Resistant Organisms: None Reported Past Surgical History: Adenoidectomy, Orthopedic Surgery Additional Past Surgical History / Comment(s): bunionectomy, ovarian cyst removal, d&c, Past Psychological History: Anxiety Smoking Status: Never smoker Past Alcohol Use History: None Reported Past Drug Use History: None Reported General Exam - General Exam Comments Initial Comments: PHYSICAL EXAM: General Impression: Alert and oriented x3, not in acute distress HEENT: Normocephalic atraumatic, extra-ocular movements intact, pupils equal and reactive to light bilaterally, mucous membranes moist. Cardiovascular: Heart regular rate and rhythm, S1&S2 audible, no murmurs, rubs or gallops Chest: Lungs clear to auscultation bilaterally, no rhonchi, no wheeze, no rales Abdomen: Bowel sounds present, abdomen soft, non-tender, non-distended, no organomegaly Musculoskeletal: Pulses present and equal in all extremities, no peripheral edema Motor: Power 5/5 bilaterally, no focal deficits noted Neurological: CN II-XII grossly intact, no focal motor or sensory deficits noted Skin: Intact with no visualized rashes Psych: Normal affect and mood Limitations: no limitations Course Vital Signs 04/21/18 10:29 Temperature 98.4 F Pulse Rate 77 Respiratory 18 Rate Blood Pressure 107/67 O2 Sat by Pulse 100 Oximetry Medical Decision Making - Medical Decision Making ED course: [id number] female presents with persistent nausea and vomiting. Vital signs upon arrival are within acceptable limits.Laboratory evaluation obtained showing no acute processes. Patient given Zofran intravenous fluids. Discussed with patient that if she feels like her nausea is not improving that we can keep her under observation to the OB floor. Patient states that she wants to try being discharged with by mouth nausea medications. Discussed patient that if her nausea and vomiting gets worse that she should come back to the emergency department. Patient is understandable and agreeable to this plan. She is on vitamins. She is currently trying to establish [facility] with OB for this . - Lab Data Result diagrams: 04/21/18 10:43 04/21/18 10:43 Lab Results 04/21/18 04/21/18 04/21/18 Range/Units 10:43 10:43 10:43 WBC 6.4 (3.8-10.6) k/uL RBC 4.87 (3.80-5.40) m/uL Hgb 13.4 (11.4-16.0) gm/dL Hct 40.6 (34.0-46.0) % MCV 83.4 (80.0-100.0) fL MCH 27.5 (25.0-35.0) pg MCHC 33.0 (31.0-37.0) g/dL RDW 13.2 (11.5-15.5) % Plt Count 213 (150-450) k/uL Neutrophils % 71 % Lymphocytes % 20 % Monocytes % 7 % Eosinophils % 1 % Basophils % 0 % Neutrophils # 4.6 (1.3-7.7) k/uL Lymphocytes # 1.3 (1.0-4.8) k/uL Monocytes # 0.4 (0-1.0) k/uL Eosinophils # 0.0 (0-0.7) k/uL Basophils # 0.0 (0-0.2) k/uL Sodium 138 (137-145) mmol/L Potassium 3.9 (3.5-5.1) mmol/L Chloride 105 (98-107) mmol/L Carbon Dioxide 24 (22-30) mmol/L Anion Gap 9 mmol/L BUN 10 (7-17) mg/dL Creatinine 0.62 (0.52-1.04) mg/dL Est GFR (CKD-EPI)AfAm >90 (>60 ml/min/1.73 sqM) Est GFR (CKD-EPI)NonAf >90 (>60 ml/min/1.73 sqM) Glucose 91 (74-99) mg/dL Calcium 9.4 (8.4-10.2) mg/dL Magnesium 1.9 (1.6-2.3) mg/dL Urine HCG, Qual Detected (Not Detectd) Disposition Clinical Impression: Nausea & vomiting Disposition: HOME SELF-CARE Instructions: Acute Nausea and Vomiting (ED) Prescriptions: Doxylamine Succinate/Vit B6 [Bonjesta ER 20-20 mg Tablet] 1 each PO Q8H PRN #20 tab.ir.dr PRN Reason: Nausea Ondansetron Odt [Zofran Odt] 4 mg PO Q8HR PRN #10 tab PRN Reason: Nausea Is patient prescribed a controlled substance at d/c from ED?: No Referrals: Zoraida Deleon MD [Primary Care Provider] - 1-2 days Time of Disposition: 11:59
[2018-04-21] MEDS ORDERED: ACETAMINOPHEN TAB 500 MG TAB PO STA (12:09)
[2018-04-21 12:16] VITALS: BP 125/60; PULSE 83; RESP 17; TEMP 98.7
== END 2018-04-21 12:19 | disposition home or self-care (01) ==
LOC: EC 10:25
DX: O21.9 Vomiting of pregnancy, unspecified (principal); O99.011 Anemia complicating pregnancy, first trimester; D64.9 Anemia, unspecified; O99.341 Other mental disorders complicating pregnancy, first trimester; F41.9 Anxiety disorder, unspecified; Z79.899 Other long term (current) drug therapy; Z91.041 Radiographic dye allergy status; Z91.018 Allergy to other foods; Z88.1 Allergy status to other antibiotic agents; Z88.8 Allergy status to other drugs, medicaments and biological substances; Z88.0 Allergy status to penicillin; Z88.2 Allergy status to sulfonamides; Z3A.01 Less than 8 weeks gestation of pregnancy
CPT/HCPCS: 36415; 80048; 83735; 85025; 81025; 99284; 96374; 96361; J2405

== ENCOUNTER 2018-04-28 17:53 | Emergency (ER) | payer OTHER ==
[2018-04-28] MEDS ORDERED: SODIUM CHLORIDE 0.9% 1,000 ML IV STA ×2 (18:13)
[2018-04-28] MEDS ORDERED: ONDANSETRON 4 MG/2 ML VIAL IVP STA (18:13)
[2018-04-28] MEDS ORDERED: DEXTROSE 5%-0.9% NACL 1,000 ML IV SCH (18:30)
[2018-04-28 18:44] LABS: Basophils # (A) 0.1 k/uL (0-0.2); Basophils % (A) 1 %; Eosinophils # (A) 0.1 k/uL (0-0.7); Eosinophils % (A) 1 %; HCT 42.1 % (34.0-46.0); Lymphocytes # (A) 1.5 k/uL (1.0-4.8); Lymphocytes % (A) 19 %; MCH 28.3 pg (25.0-35.0); MCHC 33.4 g/dL (31.0-37.0); Mean Platelet Volume 7.9; Monocytes # (A) 0.5 k/uL (0-1.0); Monocytes % (A) 7 %; Neutrophils # (A) 5.5 k/uL (1.3-7.7); Neutrophils % (A) 71 %; Platelet Count 196 k/uL (150-450); RBC 4.95 m/uL (3.80-5.40); WBC 7.7 k/uL (3.8-10.6)
[2018-04-28 18:47] LABS: Appearance,Urine Cloudy (Clear); Bacteria,Urine Rare /hpf; Bilirubin,Urine Negative (Negative); Blood,Urine Negative (Negative); Color,Urine Yellow; Glucose,Urine (UA) Negative (Negative); Ketones,Urine 1+ (Negative); Leukocyte Esterase,Urine Large (Negative); Mucus,Urine Many /hpf; Nitrite,Urine Negative (Negative); Protein,Urine 1+ (Negative); RBC,Urine 10 /hpf (0-5); Specific Gravity,Urine 1.025 (1.001-1.035); Squamous Epithelial Cell,Urine 15 /hpf (0-4); WBC,Urine 39 /hpf (0-5)
[2018-04-28 18:56] LABS: ALT 26 U/L (9-52); AST 19 U/L (14-36); Albumin 4.2 g/dL (3.5-5.0); Alkaline Phosphatase 41 U/L (38-126); Amylase 59 U/L (30-110); Anion Gap 12 mmol/L; Blood Urea Nitrogen 10 mg/dL (7-17); Calcium 9.4 mg/dL (8.4-10.2); Carbon Dioxide 23 mmol/L (22-30); Chloride 101 mmol/L (98-107); Glucose 93 mg/dL (74-99); Lipase 57 U/L (23-300); Potassium 3.7 mmol/L (3.5-5.1); Sodium 136 mmol/L (137-145); Total Bilirubin 0.5 mg/dL (0.2-1.3); Total Protein 6.8 g/dL (6.3-8.2)
[2018-04-28 19:31] VITALS: RESP 18
[2018-04-28] MEDS ORDERED: cefTRIAXone IN SWFI 1,000 MG/10 ML SYRINGE IVP STA (19:38)
[2018-04-28] MEDS ORDERED: METOCLOPRAMIDE 5 MG/ML 2 ML VIAL IVP STA (19:38)
--- NOTE | 2018-04-28 19:42 | US ---
EXAMINATION TYPE: US abdomen limited DATE OF EXAM: 04/28/2018 COMPARISON: NONE CLINICAL HISTORY: Pain. N, V, diarrhea EXAM MEASUREMENTS: Liver Length: 13.5 cm Gallbladder Wall: 0.2 cm CBD: 0.5 cm Right Kidney: 11.5 x 3.9 x 4.2 cm Pancreas: wnl Liver: wnl Gallbladder: wnl Evidence for sonographic Hernández's sign: No CBD: wnl Right Kidney: wnl IMPRESSION: Normal sonographic evaluation of the abdomen.
--- NOTE | 2018-04-28 20:01 | US ---
EXAMINATION TYPE: Transabdominal DATE OF EXAM: 12/04/17 COMPARISON: US CLINICAL HISTORY: Pain. Cramping EXAM PERFORMED: Transvaginal (TV) and Transabdominal (TA) EXAM MEASUREMENTS: GESTATIONAL AGE / DATING Physician Established: not yet established Dates by LMP: (7 weeks/2 days) EDC: 12/13/2018 Dates by First Scan: (7 weeks/1 days) EDC: 12/14/2018 Dates by Current Scan for: (7 weeks/2 days) EDC: 12/13/2018 MATERNAL ANATOMY Uterus: 10.6 x 5.3 x 7.4 cm Right Ovary: 2.9 x 1.6 x 2.8 cm Left Ovary: 3.0 x 2.6 x 2.8 cm Post CDS / Adnexa: wnl Presence of free fluid: No Presence of corpus luteal cyst: Left Ovary= 2.4 x 1.9 x 2.4 cm Presence of subchorionic bleed: Left uterus= 2.2 x 1.4 x 2.4 cm GESTATION / SURVEY CRL: 1.1 cm (7 weeks/2 days) MSD: wnl Yolk Sac (normal less than 6mm): 3mm Heart Rate: 144 bpm Rhythm: Normal IUP: Viable IUP IMPRESSION: 1. Single viable intrauterine 2. Small perigestational hemorrhage which involves approximately 25% circumferentially of the gestati onal sac. Serial ultrasounds should be considered.
--- NOTE | 2018-04-28 20:39 | ED ---
Nausea/Vomiting/Diarrhea HPI - General Chief complaint: Nausea/Vomiting/Diarrhea Stated complaint: nausea Time Seen by Provider: 04/28/18 18:06 Source: patient Mode of arrival: ambulatory Limitations: no limitations - History of Present Illness Initial comments: 2 years old female for about 8 weeks now presents with intractable nausea vomiting and some abdominal pain she is also complaining about pain in the right lower quadrant area and she has no history of abdominal surgeries. He denies any fever no chills no chest pain or shortness of breath no frequency urgency dysuria - Related Data Home Medications Medication Instructions Recorded Confirmed Cetirizine HCl [Zyrtec] 10 mg PO HS 01/06/17 11/01/17 Amitriptyline HCl 25 mg PO HS 04/01/17 11/01/17 Ferrous Sulfate [Feosol] 325 mg PO HS 09/19/17 11/01/17 Ibuprofen [Motrin] 800 mg PO TID PRN 09/19/17 11/01/17 Acetaminophen [Tylenol Extra 500 mg PO Q6HR PRN 10/14/17 11/01/17 Strength] Multivitamins, Thera [Multivitamin 1 tab PO DAILY 10/14/17 11/01/17 (formulary)] Previous Rx's Medication Instructions Recorded Acetaminophen Tab [Tylenol] 650 mg PO Q4H PRN #30 tablet 10/14/17 Ibuprofen [Motrin] 600 mg PO Q6HR PRN #20 tab 10/14/17 Cephalexin [Keflex] 500 mg PO BID 10 Days cap 11/01/17 Doxylamine Succinate/Vit B6 1 each PO Q8H PRN #20 tab.ir. 04/21/18 [Bonjesta ER 20-20 mg Tablet] Ondansetron Odt [Zofran Odt] 4 mg PO Q8HR PRN #10 tab 04/21/18 Metoclopramide [Reglan] 10 mg PO ACHS #20 tab 04/28/18 Nitrofurantoin Monohyd/M-Cryst 100 mg PO Q12HR #14 cap 04/28/18 [Macrobid] Allergies Allergy/AdvReac Type Severity Reaction Status Date / Time Iodinated Contrast- Oral and Allergy Severe Cardiac Verified 04/28/18 17:57 IV Dye Arrest [Iodinated Contrast Media - Oral and] anderson Allergy Anaphylaxis Verified 04/28/18 17:57 erythromycin ethylsuccinate Allergy Rash/Hives Verified 04/28/18 17:57 [From Pediazole] etonogestrel [From Nexplanon] Allergy Rash/Hives Verified 04/28/18 17:57 Penicillins Allergy Rash/Hives Verified 04/28/18 17:57 Sulfa (Sulfonamide Allergy Rash/Hives Verified 04/28/18 17:57 Antibiotics) sulfisoxazole acetyl Allergy Rash/Hives Verified 04/28/18 17:57 [From Pediazole] loratadine [From Claritin-D] AdvReac Nausea & Verified 04/28/18 17:57 Vomiting pseudoephedrine AdvReac Nausea & Verified 04/28/18 17:57 [From Claritin-D] Vomiting Review of Systems ROS Statement: Those systems with pertinent positive or pertinent negative responses have been documented in the HPI. ROS Other: All systems not noted in ROS Statement are negative. Past Medical History Past Medical History: Asthma Additional Past Medical History / Comment(s): migraines, anemia, ovarian cyst, History of Any Multi-Drug Resistant Organisms: None Reported Past Surgical History: Adenoidectomy, Orthopedic Surgery Additional Past Surgical History / Comment(s): bunionectomy, ovarian cyst removal, d&c, Past Psychological History: Anxiety Smoking Status: Never smoker Past Alcohol Use History: None Reported Past Drug Use History: None Reported General Exam - General Exam Comments Initial Comments: General: The patient is awake and alert, in no distress, and does not appear acutely ill. She is quite anxious Skin: Skin is warm and dry and no rashes or lesions are noted. Eye: Pupils are equal, round and reactive to light, extra-ocular movements are intact; there is normal conjunctiva bilaterally. Ears, nose, mouth and throat: There are moist mucous membranes and no oral lesions. Neck: The neck is supple, there is no tenderness or JVD. Cardiovascular: There is a regular rate and rhythm. No murmur, rub or gallop is appreciated. Respiratory: To auscultation bilateral, no wheezing no rhonchi no distress respiratory tolliver noticed Gastrointestinal: Discomfort in epigastric area Back: There is no tenderness to palpation in the midline. There is no obvious deformity. Musculoskeletal: Normal ROM, no tenderness, There is no pedal edema. There is no calf tenderness or swelling. No cords were appreciated. Neurological: CN II-XII intact, Cranial nerves III through XII are intact. There are no obvious motor or sensory deficits. Coordination appears grossly intact. Speech is normal. Psychiatric: Cooperative, appropriate mood & affect, normal judgment. Limitations: no limitations Course Vital Signs 04/28/18 04/28/18 17:56 19:30 Temperature 98.3 F Pulse Rate 80 76 Respiratory 20 18 Rate Blood Pressure 109/73 102/62 O2 Sat by Pulse 100 100 Oximetry Upon reassessment noticed CBC, CMP are unremarkable urine does show some ketones and also has a significant UTI's ultrasound of the abdomen to rule out appendix was unremarkable ultrasound of the first trimester pelvis showed intrauterine dated shows small home. Gestational hemorrhage which involves approximately 25% of the circumferentially of the gestational sac. He has no OB doctor now extrusion technician OB doctor Dr. Pérez. Bridget, spoke with her we discussed the pelvic ultrasound report and Dr. Pérez agreed that patient could call with that information to her office in the morning and she be gone home on now Macrobid Medical Decision Making - Lab Data Result diagrams: 04/28/18 18:27 04/28/18 18:27 Lab Results 04/28/18 04/28/18 04/28/18 Range/Units 18:27 18:27 18:27 WBC 7.7 (3.8-10.6) k/uL RBC 4.95 (3.80-5.40) m/uL Hgb 14.0 (11.4-16.0) gm/dL Hct 42.1 (34.0-46.0) % MCV 85.0 (80.0-100.0) fL MCH 28.3 (25.0-35.0) pg MCHC 33.4 (31.0-37.0) g/dL RDW 13.0 (11.5-15.5) % Plt Count 196 (150-450) k/uL Neutrophils % 71 % Lymphocytes % 19 % Monocytes % 7 % Eosinophils % 1 % Basophils % 1 % Neutrophils # 5.5 (1.3-7.7) k/uL Lymphocytes # 1.5 (1.0-4.8) k/uL Monocytes # 0.5 (0-1.0) k/uL Eosinophils # 0.1 (0-0.7) k/uL Basophils # 0.1 (0-0.2) k/uL Sodium 136 L (137-145) mmol/L Potassium 3.7 (3.5-5.1) mmol/L Chloride 101 (98-107) mmol/L Carbon Dioxide 23 (22-30) mmol/L Anion Gap 12 mmol/L BUN 10 (7-17) mg/dL Creatinine 0.62 (0.52-1.04) mg/dL Est GFR (CKD-EPI)AfAm >90 (>60 ml/min/1.73 sqM) Est GFR (CKD-EPI)NonAf >90 (>60 ml/min/1.73 sqM) Glucose 93 (74-99) mg/dL Calcium 9.4 (8.4-10.2) mg/dL Total Bilirubin 0.5 (0.2-1.3) mg/dL AST 19 (14-36) U/L ALT 26 (9-52) U/L Alkaline Phosphatase 41 (38-126) U/L Total Protein 6.8 (6.3-8.2) g/dL Albumin 4.2 (3.5-5.0) g/dL Amylase 59 (30-110) U/L Lipase 57 (23-300) U/L Urine Color Yellow Urine Appearance Cloudy H (Clear) Urine pH 6.0 (5.0-8.0) Ur Specific [place] 1.025 (1.001-1.035) Urine Protein 1+ H (Negative) Urine Glucose (UA) Negative (Negative) Urine Ketones 1+ H (Negative) Urine Blood Negative (Negative) Urine Nitrite Negative (Negative) Urine Bilirubin Negative (Negative) Urine Urobilinogen 3.0 (<2.0) mg/dL Ur Leukocyte Esterase Large H (Negative) Urine RBC 10 H (0-5) /hpf Urine WBC 39 H (0-5) /hpf Ur Squamous Epith Cells 15 H (0-4) /hpf Urine Bacteria Rare H (None) /hpf Urine Mucus Many H (None) /hpf Disposition Clinical Impression: , Nausea and vomiting, UTI (urinary tract infection) Disposition: HOME SELF-CARE Condition: Good Instructions: Acute Nausea and Vomiting (ED) Prescriptions: Metoclopramide [Reglan] 10 mg PO ACHS #20 tab Nitrofurantoin Monohyd/M-Cryst [Macrobid] 100 mg PO Q12HR #14 cap Is patient prescribed a controlled substance at d/c from ED?: No Referrals: Zoraida Deleon MD [Primary Care Provider] - 1-2 days Sherron Pérez DO [Doctor of Osteopathic Medicine] - 1-2 days
[2018-04-28 20:53] VITALS: BP 118/79; PULSE 98; TEMP 98.7
== END 2018-04-28 20:55 | disposition home or self-care (01) ==
LOC: EC 17:53
DX: O23.41 Unspecified infection of urinary tract in pregnancy, first trimester (principal); O21.9 Vomiting of pregnancy, unspecified; O99.511 Diseases of the respiratory system complicating pregnancy, first trimester; J45.909 Unspecified asthma, uncomplicated; O99.011 Anemia complicating pregnancy, first trimester; O99.341 Other mental disorders complicating pregnancy, first trimester; F41.9 Anxiety disorder, unspecified; Z79.899 Other long term (current) drug therapy; Z88.0 Allergy status to penicillin; Z88.1 Allergy status to other antibiotic agents; Z88.2 Allergy status to sulfonamides; Z88.8 Allergy status to other drugs, medicaments and biological substances; Z91.018 Allergy to other foods; Z91.041 Radiographic dye allergy status; Z3A.08 8 weeks gestation of pregnancy
CPT/HCPCS: 36415; 80053; 82150; 83690; 85025; 81001; 87086; 76705; 76801; 76817; 99284; 96374; 96375 ×3; 96361 ×2; J2765; J2405; J0696

== ENCOUNTER 2018-05-02 18:25 | Emergency (ER) | payer OTHER ==
[2018-05-02] MEDS ORDERED: SODIUM CHLORIDE 0.9% 1,000 ML IV ONE (20:24)
[2018-05-02] MEDS ORDERED: PYRIDOXINE 100 MG/ML 1 ML VIAL IVP STA (20:24)
[2018-05-02] MEDS ORDERED: DEXTROSE 5% IN WATER 1,000 ML IV ONE (20:24)
[2018-05-02] MEDS ORDERED: diphenhydrAMINE 50 MG/ML 1 ML VIAL IVP STA (20:24)
--- NOTE | 2018-05-02 20:30 | ED ---
Nausea/Vomiting/Diarrhea HPI - General Chief complaint: Nausea/Vomiting/Diarrhea Stated complaint: nausea,vomiting Time Seen by Provider: 05/02/18 20:11 Source: patient Mode of arrival: ambulatory Limitations: no limitations - History of Present Illness Initial comments: 32-year-old female patient who is approximately 8 weeks presents to the emergency department today for evaluation of vomiting. Patient states that for the last couple of weeks she has had severe nausea and vomiting. States that she is unable to keep down any food or fluids. The patient states that this is her fourth visit to the emergency department for the same. States that she will be seeing someone out of [facility] for obstetrical care however they will not see her until she is 10 weeks . Patient states that she was taking Reglan at home but it makes her feel too anxious so she does not want to take it. Patient states she has tried Zofran at home but is not helping. Patient states she is having lower abdominal cramping. She is taking Macrobid for urinary tract infection however she is unable to keep down the pills. She denies any vaginal bleeding or abnormal discharge. She denies any fevers or chills. Denies any back pain. Patient denies any recent rash, shortness breath, chest pain, diarrhea, constipation, back pain, numbness, tingling, dizziness, weakness, headache, visual changes, or any other complaints. - Related Data Home Medications Medication Instructions Recorded Confirmed Cetirizine HCl [Zyrtec] 10 mg PO HS 01/06/17 05/02/18 Amitriptyline HCl 25 mg PO HS 04/01/17 05/02/18 Ferrous Sulfate [Feosol] 325 mg PO HS 09/19/17 05/02/18 Multivitamins, Thera [Multivitamin 1 tab PO DAILY 10/14/17 05/02/18 (formulary)] Previous Rx's Medication Instructions Recorded Acetaminophen Tab [Tylenol] 650 mg PO Q4H PRN #30 tablet 10/14/17 Nitrofurantoin Monohyd/M-Cryst 100 mg PO Q12HR #14 cap 04/28/18 [Macrobid] Doxylamine Succinate/Vit B6 1 each PO BID #20 tab.ir. 05/02/18 [Bonjesta ER 20-20 mg Tablet] Allergies Allergy/AdvReac Type Severity Reaction Status Date / Time Iodinated Contrast- Oral and Allergy Severe Cardiac Verified 05/02/18 20:38 IV Dye Arrest [Iodinated Contrast Media - Oral and] anderson Allergy Anaphylaxis Verified 05/02/18 20:38 erythromycin ethylsuccinate Allergy Rash/Hives Verified 05/02/18 20:38 [From Pediazole] etonogestrel [From Nexplanon] Allergy Rash/Hives Verified 05/02/18 20:38 Penicillins Allergy Rash/Hives Verified 05/02/18 20:38 Sulfa (Sulfonamide Allergy Rash/Hives Verified 05/02/18 20:38 Antibiotics) sulfisoxazole acetyl Allergy Rash/Hives Verified 05/02/18 20:38 [From Pediazole] loratadine [From Claritin-D] AdvReac Nausea & Verified 05/02/18 20:38 Vomiting pseudoephedrine AdvReac Nausea & Verified 05/02/18 20:38 [From Claritin-D] Vomiting Review of Systems ROS Statement: Those systems with pertinent positive or pertinent negative responses have been documented in the HPI. ROS Other: All systems not noted in ROS Statement are negative. Past Medical History Past Medical History: Asthma Additional Past Medical History / Comment(s): migraines, anemia, ovarian cyst, History of Any Multi-Drug Resistant Organisms: None Reported Past Surgical History: Adenoidectomy, Orthopedic Surgery Additional Past Surgical History / Comment(s): bunionectomy, ovarian cyst removal, d&c, Past Psychological History: Anxiety Smoking Status: Never smoker Past Alcohol Use History: None Reported Past Drug Use History: None Reported General Exam Limitations: no limitations General appearance: alert, in no apparent distress, other (This is a well- developed, well-nourished adult female patient in no acute distress. Vital signs upon presentation are temperature 98.2F, pulse 77, respirations 18, blood pressure 113/77, pulse ox 99% on room air.) Eye exam: Present: normal appearance, PERRL, EOMI. Absent: scleral icterus, conjunctival injection, periorbital swelling ENT exam: Present: normal exam, normal oropharynx, mucous membranes moist Respiratory exam: Present: normal lung sounds bilaterally. Absent: respiratory distress, wheezes, rales, rhonchi, stridor Cardiovascular Exam: Present: regular rate, normal rhythm, normal heart sounds. Absent: systolic murmur, diastolic murmur, rubs, gallop, clicks GI/Abdominal exam: Present: soft, normal bowel sounds. Absent: distended, tenderness, guarding, rebound, rigid Neurological exam: Present: alert, oriented X3, CN II-XII intact Psychiatric exam: Present: normal affect, normal mood Skin exam: Present: warm, dry, intact, normal color. Absent: rash Course Vital Signs 05/02/18 05/02/18 05/02/18 18:54 20:50 22:00 Temperature 98.2 F Pulse Rate 77 81 85 Respiratory 18 20 20 Rate Blood Pressure 113/77 103/70 105/56 O2 Sat by Pulse 99 100 96 Oximetry 05/02/18 23:00 Temperature 98.6 F Pulse Rate 89 Respiratory 20 Rate Blood Pressure 106/55 O2 Sat by Pulse 99 Oximetry Medical Decision Making - Medical Decision Making 32-year-old female patient percents to the emergency department today for evaluation of nausea and vomiting. Patient is approximately 8 weeks and has been having a lot of issues with vomiting. Patient had been unable to keep down any food or fluids for the last several days. Physical examination was relatively unremarkable. Abdomen was soft and nontender. Patient denied any vaginal bleeding or abnormal discharge. Labs reviewed and did reveal low sodium level, 4+ ketones in the urine. No evidence of urinary tract infection. Did give patient IV fluids including D5 W at 100 and hour. Gave some ofirmev for complaints of headache, as well as Benadryl and vitamin B6 for nausea. Upon reevaluation patient reports feeling much better. States her headache is improved. She did tolerate gram crackers and apple juice. She does feel comfortable being discharged home. We will give her prescription for Bonjesta. She is instructed to follow-up with her [employer] for recheck as soon as possible. Return parameters were discussed in detail. She verbalizes understanding and agrees with this plan. - Lab Data Result diagrams: 05/02/18 20:29 05/02/18 20:29 Lab Results 05/02/18 05/02/18 05/02/18 Range/Units 20:29 20:29 20:29 WBC 8.0 (3.8-10.6) k/uL RBC 5.03 (3.80-5.40) m/uL Hgb 14.1 (11.4-16.0) gm/dL Hct 42.6 (34.0-46.0) % MCV 84.8 (80.0-100.0) fL MCH 28.1 (25.0-35.0) pg MCHC 33.1 (31.0-37.0) g/dL RDW 13.0 (11.5-15.5) % Plt Count 202 (150-450) k/uL Neutrophils % 72 % Lymphocytes % 19 % Monocytes % 6 % Eosinophils % 1 % Basophils % 0 % Neutrophils # 5.7 (1.3-7.7) k/uL Lymphocytes # 1.5 (1.0-4.8) k/uL Monocytes # 0.5 (0-1.0) k/uL Eosinophils # 0.1 (0-0.7) k/uL Basophils # 0.0 (0-0.2) k/uL Sodium 135 L (137-145) mmol/L Potassium 3.9 (3.5-5.1) mmol/L Chloride 100 (98-107) mmol/L Carbon Dioxide 26 (22-30) mmol/L Anion Gap 9 mmol/L BUN 10 (7-17) mg/dL Creatinine 0.62 (0.52-1.04) mg/dL Est GFR (CKD-EPI)AfAm >90 (>60 ml/min/1.73 sqM) Est GFR (CKD-EPI)NonAf >90 (>60 ml/min/1.73 sqM) Glucose 90 (74-99) mg/dL Calcium 9.5 (8.4-10.2) mg/dL Total Bilirubin 0.8 (0.2-1.3) mg/dL AST 28 (14-36) U/L ALT 40 (9-52) U/L Alkaline Phosphatase 43 (38-126) U/L Total Protein 7.0 (6.3-8.2) g/dL Albumin 4.2 (3.5-5.0) g/dL Urine Color Yellow Urine Appearance Clear (Clear) Urine pH 6.0 (5.0-8.0) Ur Specific [place] 1.026 (1.001-1.035) Urine Protein 1+ H (Negative) Urine Glucose (UA) Negative (Negative) Urine Ketones 4+ H (Negative) Urine Blood Negative (Negative) Urine Nitrite Negative (Negative) Urine Bilirubin Negative (Negative) Urine Urobilinogen 3.0 (<2.0) mg/dL Ur Leukocyte Esterase Negative (Negative) Urine WBC 4 (0-5) /hpf Ur Squamous Epith Cells 5 H (0-4) /hpf Amorphous Sediment Occasional H (None) /hpf Hyaline Casts 9 H (0-2) /lpf Urine Mucus Many H (None) /hpf Disposition Clinical Impression: Vomiting during Disposition: HOME SELF-CARE Condition: Good Instructions: Nausea and Vomiting in (ED) Additional Instructions: Take medications as directed. Start with clear liquid diet and advance as tolerated. Follow-up with [employer] for recheck as soon as possible. Return here immediately for any new, worsening, or concerning symptoms. Prescriptions: Doxylamine Succinate/Vit B6 [Bonjesta ER 20-20 mg Tablet] 1 each PO BID #20 tab.ir.dr Is patient prescribed a controlled substance at d/c from ED?: No Referrals: Zoraida Deleon MD [Primary Care Provider] - 1-2 days Time of Disposition: 23:02
[2018-05-02 20:39] LABS: Basophils % (A) 0 %; Eosinophils # (A) 0.1 k/uL (0-0.7); Eosinophils % (A) 1 %; HCT 42.6 % (34.0-46.0); HGB 14.1 gm/dL (11.4-16.0); Lymphocytes # (A) 1.5 k/uL (1.0-4.8); Lymphocytes % (A) 19 %; MCH 28.1 pg (25.0-35.0); MCHC 33.1 g/dL (31.0-37.0); MCV 84.8 fL (80.0-100.0); Mean Platelet Volume 7.8; Monocytes # (A) 0.5 k/uL (0-1.0); Monocytes % (A) 6 %; Neutrophils # (A) 5.7 k/uL (1.3-7.7); Neutrophils % (A) 72 %; Platelet Count 202 k/uL (150-450); RBC 5.03 m/uL (3.80-5.40)
[2018-05-02 20:48] LABS: ALT 40 U/L (9-52); AST 28 U/L (14-36); Albumin 4.2 g/dL (3.5-5.0); Alkaline Phosphatase 43 U/L (38-126); Amorphous Sediment,Urine Occasional /hpf; Anion Gap 9 mmol/L; Appearance,Urine Clear (Clear); Bilirubin,Urine Negative (Negative); Blood Urea Nitrogen 10 mg/dL (7-17); Blood,Urine Negative (Negative); Calcium 9.5 mg/dL (8.4-10.2); Carbon Dioxide 26 mmol/L (22-30); Chloride 100 mmol/L (98-107); Color,Urine Yellow; Glucose 90 mg/dL (74-99); Glucose,Urine (UA) Negative (Negative); Hyaline Casts,Urine 9 /lpf (0-2); Ketones,Urine 4+ (Negative); Leukocyte Esterase,Urine Negative (Negative); Mucus,Urine Many /hpf; Nitrite,Urine Negative (Negative); Potassium 3.9 mmol/L (3.5-5.1); Protein,Urine 1+ (Negative); Sodium 135 mmol/L (137-145); Specific Gravity,Urine 1.026 (1.001-1.035); Squamous Epithelial Cell,Urine 5 /hpf (0-4); Total Bilirubin 0.8 mg/dL (0.2-1.3); WBC,Urine 4 /hpf (0-5)
[2018-05-02 20:51] VITALS: RESP 20
[2018-05-02] MEDS ORDERED: ACETAMINOPHEN IV (For NPO) 1,000 MG in EMPTY BAG 1 BAG IVPB STA (21:17)
[2018-05-02 23:09] VITALS: BP 106/55; PULSE 89; TEMP 98.6
== END 2018-05-02 23:15 | disposition home or self-care (01) ==
LOC: EC 18:25
DX: O21.9 Vomiting of pregnancy, unspecified (principal); O99.89 Other specified diseases and conditions complicating pregnancy, childbirth and the puerperium; R19.7 Diarrhea, unspecified; R10.30 Lower abdominal pain, unspecified; Z3A.08 8 weeks gestation of pregnancy; Z79.899 Other long term (current) drug therapy; Z91.041 Radiographic dye allergy status; Z91.018 Allergy to other foods; Z88.1 Allergy status to other antibiotic agents; Z88.0 Allergy status to penicillin; Z88.2 Allergy status to sulfonamides; Z88.8 Allergy status to other drugs, medicaments and biological substances
CPT/HCPCS: 36415; 80053; 85025; 81001; 99284; 96374; 96375 ×3; 96361; J1200; J3415; J0131

== ENCOUNTER 2018-05-08 17:46 | Emergency (ER) | payer OTHER ==
[2018-05-08] MEDS ORDERED: SODIUM CHLORIDE 0.9% 1,000 ML IV ONE (19:59)
--- NOTE | 2018-05-08 20:00 | ED ---
Abdominal Pain HPI - General Chief Complaint: Abdominal Pain Stated Complaint: abd pain Time Seen by Provider: 05/08/18 19:33 Source: patient Mode of arrival: ambulatory Limitations: no limitations - History of Present Illness Initial Comments: 32-year-old female patient who is approximately 8 weeks presents to the emergency department today for evaluation of lower abdominal pain and right- sided back pain. Patient states the pain started 2 days ago. Patient states the pain in her abdomen increases when she urinates however she denies any hematuria, dysuria, urinary frequency, urinary urgency. Patient states she has not had a bowel movement over the last 3 weeks however she has been having severe nausea with the . Patient states recently started taking vitamin B6 which is working very well for her nausea. States that she will be seeing someone out of [facility] for obstetrical care, her first appointment is 05/20/18. She denies any vaginal bleeding or abnormal discharge. She denies any fevers or chills. Patient denies any recent rash, shortness breath, chest pain, numbness, tingling, dizziness, weakness, headache, visual changes, or any other complaints. Patient is A1. - Related Data Home Medications Medication Instructions Recorded Confirmed Multivitamins, Thera [Multivitamin 1 tab PO DAILY 10/14/17 05/08/18 (formulary)] Previous Rx's Medication Instructions Recorded Docusate [Colace] 100 mg PO DAILY #30 capsule 05/08/18 Allergies Allergy/AdvReac Type Severity Reaction Status Date / Time Iodinated Contrast- Oral and Allergy Severe Cardiac Verified 05/08/18 19:54 IV Dye Arrest [Iodinated Contrast Media - Oral and] anderson Allergy Anaphylaxis Verified 05/08/18 19:54 erythromycin ethylsuccinate Allergy Rash/Hives Verified 05/08/18 19:54 [From Pediazole] etonogestrel [From Nexplanon] Allergy Rash/Hives Verified 05/08/18 19:54 Penicillins Allergy Rash/Hives Verified 05/08/18 19:54 Sulfa (Sulfonamide Allergy Rash/Hives Verified 05/08/18 19:54 Antibiotics) sulfisoxazole acetyl Allergy Rash/Hives Verified 05/08/18 19:54 [From Pediazole] loratadine [From Claritin-D] AdvReac Nausea & Verified 09/05/18 19:54 Vomiting pseudoephedrine AdvReac Nausea & Verified 05/08/18 19:54 [From Claritin-D] Vomiting Review of Systems ROS Statement: Those systems with pertinent positive or pertinent negative responses have been documented in the HPI. ROS Other: All systems not noted in ROS Statement are negative. Past Medical History Past Medical History: Asthma Additional Past Medical History / Comment(s): migraines, anemia, ovarian cyst, History of Any Multi-Drug Resistant Organisms: None Reported Past Surgical History: Adenoidectomy, Orthopedic Surgery Additional Past Surgical History / Comment(s): bunionectomy, ovarian cyst removal, d&c, Past Psychological History: Anxiety Smoking Status: Never smoker Past Alcohol Use History: None Reported Past Drug Use History: None Reported General Exam Limitations: no limitations General appearance: alert, in no apparent distress, other (This is a well- developed, well-nourished adult female patient in no acute distress. Vital signs upon presentation are temperature 98.3F, pulse 82, respirations 18, blood pressure 114/76, pulse ox 100% on room air.) Eye exam: Present: normal appearance, PERRL, EOMI. Absent: scleral icterus, conjunctival injection, periorbital swelling ENT exam: Present: normal exam, normal oropharynx, mucous membranes moist Respiratory exam: Present: normal lung sounds bilaterally. Absent: respiratory distress, wheezes, rales, rhonchi, stridor Cardiovascular Exam: Present: regular rate, normal rhythm, normal heart sounds. Absent: systolic murmur, diastolic murmur, rubs, gallop, clicks GI/Abdominal exam: Present: soft, tenderness (Lower abdominal tenderness), normal bowel sounds. Absent: distended, guarding, rebound, rigid Back exam: Present: normal inspection. Absent: CVA tenderness (R), CVA tenderness (L) Neurological exam: Present: alert, oriented X3, CN II-XII intact Psychiatric exam: Present: normal affect, normal mood Skin exam: Present: warm, dry, intact, normal color. Absent: rash Course Vital Signs 05/08/18 05/08/18 19:00 22:49 Temperature 98.3 F 98.8 F Pulse Rate 82 80 Respiratory 18 17 Rate Blood Pressure 114/76 103/57 O2 Sat by Pulse 100 100 Oximetry Medical Decision Making - Medical Decision Making 32-year-old female patient presented to the emergency department today with complaints of lower abdominal pain and constipation. Physical examination did reveal some mild lower abdominal tenderness. Labs reviewed and are unremarkable. White blood cell count is normal. Urinalysis is negative for any evidence of infection. Ultrasound of the fetus was obtained and showed a viable intrauterine measuring 8 weeks 3 days. I did discuss findings and results with the patient. She was comfortable receiving oral stool softener to attempt to have a bowel movement before any further testing is done to evaluate her abdominal pain. She is instructed to follow-up with her [facility] for recheck as soon as possible. She will be seeing an OBGYN out [facility], has an appointment on 05/20/18. Return parameters discussed in detail. She verbalizes understanding and agrees with this plan. - Lab Data Result diagrams: 05/08/18 19:51 05/08/18 19:51 Lab Results 05/08/18 05/08/18 05/08/18 Range/Units 19:05 19:51 19:51 WBC 6.7 (3.8-10.6) k/uL RBC 4.73 (3.80-5.40) m/uL Hgb 13.5 (11.4-16.0) gm/dL Hct 40.0 (34.0-46.0) % MCV 84.6 (80.0-100.0) fL MCH 28.5 (25.0-35.0) pg MCHC 33.7 (31.0-37.0) g/dL RDW 13.1 (11.5-15.5) % Plt Count 199 (150-450) k/uL Neutrophils % 66 % Lymphocytes % 26 % Monocytes % 6 % Eosinophils % 1 % Basophils % 0 % Neutrophils # 4.4 (1.3-7.7) k/uL Lymphocytes # 1.7 (1.0-4.8) k/uL Monocytes # 0.4 (0-1.0) k/uL Eosinophils # 0.1 (0-0.7) k/uL Basophils # 0.0 (0-0.2) k/uL Sodium 134 L (137-145) mmol/L Potassium 3.7 (3.5-5.1) mmol/L Chloride 101 (98-107) mmol/L Carbon Dioxide 23 (22-30) mmol/L Anion Gap 10 mmol/L BUN 6 L (7-17) mg/dL Creatinine 0.56 (0.52-1.04) mg/dL Est GFR (CKD-EPI)AfAm >90 (>60 ml/min/1.73 sqM) Est GFR (CKD-EPI)NonAf >90 (>60 ml/min/1.73 sqM) Glucose 87 (74-99) mg/dL Calcium 9.1 (8.4-10.2) mg/dL Total Bilirubin 0.5 (0.2-1.3) mg/dL AST 27 (14-36) U/L ALT 29 (9-52) U/L Alkaline Phosphatase 42 (38-126) U/L Total Protein 6.7 (6.3-8.2) g/dL Albumin 4.0 (3.5-5.0) g/dL Amylase 72 (30-110) U/L Lipase 91 (23-300) U/L HCG, Quant mIU/mL Urine Color Yellow Urine Appearance Cloudy H (Clear) Urine pH 7.0 (5.0-8.0) Ur Specific [place] 1.016 (1.001-1.035) Urine Protein Trace H (Negative) Urine Glucose (UA) Negative (Negative) Urine Ketones Negative (Negative) Urine Blood Negative (Negative) Urine Nitrite Negative (Negative) Urine Bilirubin Negative (Negative) Urine Urobilinogen <2.0 (<2.0) mg/dL Ur Leukocyte Esterase Small H (Negative) Urine RBC 4 (0-5) /hpf Urine WBC 3 (0-5) /hpf Ur Squamous Epith Cells 3 (0-4) /hpf Urine Mucus Few H (None) /hpf 05/08/18 Range/Units 19:51 WBC (3.8-10.6) k/uL RBC (3.80-5.40) m/uL Hgb (11.4-16.0) gm/dL Hct (34.0-46.0) % MCV (80.0-100.0) fL MCH (25.0-35.0) pg MCHC (31.0-37.0) g/dL RDW (11.5-15.5) % Plt Count (150-450) k/uL Neutrophils % % Lymphocytes % % Monocytes % % Eosinophils % % Basophils % % Neutrophils # (1.3-7.7) k/uL Lymphocytes # (1.0-4.8) k/uL Monocytes # (0-1.0) k/uL Eosinophils # (0-0.7) k/uL Basophils # (0-0.2) k/uL Sodium (137-145) mmol/L Potassium (3.5-5.1) mmol/L Chloride (98-107) mmol/L Carbon Dioxide (22-30) mmol/L Anion Gap mmol/L BUN (7-17) mg/dL Creatinine (0.52-1.04) mg/dL Est GFR (CKD-EPI)AfAm (>60 ml/min/1.73 sqM) Est GFR (CKD-EPI)NonAf (>60 ml/min/1.73 sqM) Glucose (74-99) mg/dL Calcium (8.4-10.2) mg/dL Total Bilirubin (0.2-1.3) mg/dL AST (14-36) U/L ALT (9-52) U/L Alkaline Phosphatase (38-126) U/L Total Protein (6.3-8.2) g/dL Albumin (3.5-5.0) g/dL Amylase (30-110) U/L Lipase (23-300) U/L HCG, Quant 749710.0 mIU/mL Urine Color Urine Appearance (Clear) Urine pH (5.0-8.0) Ur Specific [place] (1.001-1.035) Urine Protein (Negative) Urine Glucose (UA) (Negative) Urine Ketones (Negative) Urine Blood (Negative) Urine Nitrite (Negative) Urine Bilirubin (Negative) Urine Urobilinogen (<2.0) mg/dL Ur Leukocyte Esterase (Negative) Urine RBC (0-5) /hpf Urine WBC (0-5) /hpf Ur Squamous Epith Cells (0-4) /hpf Urine Mucus (None) /hpf - Radiology Data Radiology results: report reviewed Transvaginal ultrasound of the fetus was obtained. Report was reviewed in its entirety. Impression by Dr. Saldana shows ultrasound gestational age is 8 weeks 4 days. No Acute process seen. Viable intrauterine . Heart rate 176 bpm. Disposition Clinical Impression: Abdominal pain in Disposition: HOME SELF-CARE Condition: Good Instructions: Abdominal Pain in (ED) Additional Instructions: Follow-up with your [facility] for recheck as soon as possible. Take medication as directed. Return here immediately for any new, worsening, or concerning symptoms. Prescriptions: Docusate [Colace] 100 mg PO DAILY #30 capsule Is patient prescribed a controlled substance at d/c from ED?: No Referrals: Zoraida Deleon MD [Primary Care Provider] - 1-2 days Time of Disposition: 22:35
[2018-05-08 20:05] LABS: Basophils % (A) 0 %; Eosinophils # (A) 0.1 k/uL (0-0.7); Eosinophils % (A) 1 %; HGB 13.5 gm/dL (11.4-16.0); Lymphocytes # (A) 1.7 k/uL (1.0-4.8); Lymphocytes % (A) 26 %; MCH 28.5 pg (25.0-35.0); MCHC 33.7 g/dL (31.0-37.0); MCV 84.6 fL (80.0-100.0); Mean Platelet Volume 7.5; Monocytes # (A) 0.4 k/uL (0-1.0); Monocytes % (A) 6 %; Neutrophils # (A) 4.4 k/uL (1.3-7.7); Neutrophils % (A) 66 %; Platelet Count 199 k/uL (150-450); RBC 4.73 m/uL (3.80-5.40); RDW 13.1 % (11.5-15.5); WBC 6.7 k/uL (3.8-10.6)
[2018-05-08 20:17] LABS: Appearance,Urine Cloudy (Clear); Bilirubin,Urine Negative (Negative); Blood,Urine Negative (Negative); Color,Urine Yellow; Glucose,Urine (UA) Negative (Negative); Ketones,Urine Negative (Negative); Leukocyte Esterase,Urine Small (Negative); Mucus,Urine Few /hpf; Nitrite,Urine Negative (Negative); Protein,Urine Trace (Negative); RBC,Urine 4 /hpf (0-5); Specific Gravity,Urine 1.016 (1.001-1.035); Squamous Epithelial Cell,Urine 3 /hpf (0-4); Urobilinogen,Urine <2.0 mg/dL (<2.0); WBC,Urine 3 /hpf (0-5)
[2018-05-08 20:21] LABS: ALT 29 U/L (9-52); AST 27 U/L (14-36); Alkaline Phosphatase 42 U/L (38-126); Amylase 72 U/L (30-110); Anion Gap 10 mmol/L; Blood Urea Nitrogen 6 mg/dL (7-17); Calcium 9.1 mg/dL (8.4-10.2); Carbon Dioxide 23 mmol/L (22-30); Chloride 101 mmol/L (98-107); Glucose 87 mg/dL (74-99); Lipase 91 U/L (23-300); Potassium 3.7 mmol/L (3.5-5.1); Sodium 134 mmol/L (137-145); Total Bilirubin 0.5 mg/dL (0.2-1.3); Total Protein 6.7 g/dL (6.3-8.2)
--- NOTE | 2018-05-08 22:16 | US ---
EXAMINATION TYPE: Transabdominal DATE OF EXAM: 12/04/17 COMPARISON: NONE CLINICAL HISTORY: Pain. Pain EXAM PERFORMED: Transabdominal (TA) EXAM MEASUREMENTS: GESTATIONAL AGE / DATING Physician Established: (8 weeks/4 days) EDC: 12/14/2018 Dates by LMP: (8 weeks/4 days) EDC: 12/14/2018 Dates by First Scan: (7 weeks/2 days) EDC: 12/13/2018 Dates by Current Scan for: (8 weeks/4 days) EDC: 12/14/2018 MATERNAL ANATOMY Uterus: 10.2 x 6.5 x 8.5 cm Right Ovary: 2.6 x 1.5 x 2.9 cm Left Ovary: 3.1 x 2.3 x 2.2 cm Post CDS / Adnexa: wnl Presence of free fluid: no Presence of corpus luteal cyst: yes left ovary Presence of subchorionic bleed: Yes left uterus 2.0 x 1.2 x 1.2cm. GESTATION / SURVEY CRL: 2.0 cm (8 weeks/4 days) Yolk Sac (normal less than 6mm): 3mm Heart Rate: 176 bpm Rhythm: Normal IUP: Viable IUP Beta HcG (if available): Not available at this time Viable IUP 8w 4d GINO 12/14/2018 HR 1765 BPM IMPRESSION: The ultrasound gestational age is 8 weeks and 4 days. No complicating process seen.
[2018-05-08 22:50] VITALS: BP 103/57; PULSE 80; RESP 17; TEMP 98.8
== END 2018-05-08 23:05 | disposition home or self-care (01) ==
LOC: EC 17:46
DX: O99.89 Other specified diseases and conditions complicating pregnancy, childbirth and the puerperium (principal); R10.30 Lower abdominal pain, unspecified; M54.9 Dorsalgia, unspecified; R11.0 Nausea; O99.611 Diseases of the digestive system complicating pregnancy, first trimester; K59.00 Constipation, unspecified; Z88.0 Allergy status to penicillin; Z88.1 Allergy status to other antibiotic agents; Z88.2 Allergy status to sulfonamides; Z88.8 Allergy status to other drugs, medicaments and biological substances; Z91.018 Allergy to other foods; Z91.041 Radiographic dye allergy status; Z3A.08 8 weeks gestation of pregnancy
CPT/HCPCS: 36415; 76801; 80053; 81001; 82150; 83690; 84702; 85025; 96360; 96361; 99284

== ENCOUNTER 2018-08-27 17:00 | Emergency (ER) | payer OTHER ==
[2018-08-27 17:11] VITALS: RESP 18; TEMP 98.1
--- NOTE | 2018-08-27 18:11 | ED ---
General Adult HPI - General Chief complaint: Shortness of Breath Stated complaint: VA (25wks Preg) Time Seen by Provider: 08/27/18 17:59 Source: patient Mode of arrival: ambulatory Limitations: no limitations - History of Present Illness Initial comments: This is a 33-year-old female with past medical history of asthma and chronic A1 currently 25 weeks' presenting today for chief complaint of cough , congestion, chest tightness and burning with cough x2 days. 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 She states her throat hurts when she coughs she denies any fever at but admits to chills. Patient denies taking any medications aside her for symptoms. Patient states that she feels as though her chest is congested and has been eperiencing a burning sensation when she coughs in the center of her chest. She states it feels identical to when she has had bronchitis in the past. In addition patient notes that she has pain in the ears bilaterally, denies drainage or hearing loss , headache. Patient denies any calf pain, hemoptysis, productive sputum body aches. Upon review of systems patient does admit to abdominal pain however she states this has been going on for "twentysomething weeks" since she found out she was , she denies any change in characteristic sense, patient denies any vaginal bleeding, diarrhea, constipation, nausea or vomiting. Pt states however if she drinks anything aside from water she does experience vomiting. Upon arrival patient's vital signs stable blood pressure within normal limits, patient is afebrile, oxygenating well and 99% on room air. There are no signs of rest or distress. Patient appears well. - Related Data Home Medications Medication Instructions Recorded Confirmed Acetaminophen [Tylenol Extra 500 mg PO TID PRN 07/16/18 08/27/18 Strength] Pnv No.95/Ferrous Fum/Folic AC 1 tab PO DAILY 07/16/18 08/27/18 [ Multivitamin Tablet] Previous Rx's Medication Instructions Recorded Ipratropium [employer] 0.06%Nasal 1 spray EA NOSTRIL TID 3 Days #1 08/27/18 [Atrovent Nasal 0.06%] bottle Allergies Allergy/AdvReac Type Severity Reaction Status Date / Time Iodinated Contrast- Oral and Allergy Severe Cardiac Verified 08/27/18 20:30 IV Dye Arrest [Iodinated Contrast Media - Oral and] anderson Allergy Anaphylaxis Verified 08/27/18 20:30 erythromycin ethylsuccinate Allergy Rash/Hives Verified 08/27/18 20:30 [From Pediazole] etonogestrel [From Nexplanon] Allergy Rash/Hives Verified 08/27/18 20:30 Penicillins Allergy Rash/Hives Verified 08/27/18 20:30 Sulfa (Sulfonamide Allergy Rash/Hives Verified 08/27/18 20:30 Antibiotics) sulfisoxazole acetyl Allergy Rash/Hives Verified 08/27/18 20:30 [From Pediazole] loratadine [From Claritin-D] AdvReac Nausea & Verified 08/27/18 20:30 Vomiting pseudoephedrine AdvReac Nausea & Verified 08/27/18 20:30 [From Claritin-D] Vomiting Review of Systems ROS Statement: Those systems with pertinent positive or pertinent negative responses have been documented in the HPI. ROS Other: All systems not noted in ROS Statement are negative. Constitutional: Reports: chills. Denies: fever Eyes: Denies: eye pain ENT: Reports: ear pain, throat pain Respiratory: Reports: cough, dyspnea. Denies: wheezes, hemoptysis, stridor Cardiovascular: Denies: chest pain, palpitations, dyspnea on exertion, edema Endocrine: Denies: fatigue Gastrointestinal: Denies: abdominal pain, nausea, vomiting, diarrhea, constipation, hematemesis, melena Genitourinary: Denies: urgency, dysuria, frequency, hematuria Musculoskeletal: Denies: back pain Skin: Denies: rash, lesions Neurological: Denies: headache, weakness, numbness, paresthesias, confusion Past Medical History Past Medical History: Asthma Additional Past Medical History / Comment(s): migraines, anemia, ovarian cyst, History of Any Multi-Drug Resistant Organisms: None Reported Past Surgical History: Adenoidectomy, Orthopedic Surgery Additional Past Surgical History / Comment(s): bunionectomy, ovarian cyst removal, d&c, Past Psychological History: Anxiety Smoking Status: Never smoker Past Alcohol Use History: None Reported Past Drug Use History: None Reported General Exam - General Exam Comments Initial Comments: General: The patient is awake and alert, in no distress, and does not appear acutely ill. Eye: +3 mm pupils are equal, round and reactive to light, extra-ocular movements are intact. No nystagmus. There is normal conjunctiva bilaterally. No signs of icterus. Ears, nose, mouth and throat: There are moist mucous membranes and no oral lesions. Oropharynx is mildly erythematous, no tonsillar enlargement or exudates or lesions l drip noted. Uvula midline. No anterior cervical adenopathy. Clear rhinorrhea noted. Patient has mild sinus tenderness. Neck: The neck is supple, there is no tenderness or JVD. Tympanic membranes are within normal limits bilaterally no erythema, edema or retractions bulging or effusions. Cor of light and malleus present. External auditory canal normal bilaterally not erythematous or edematous. Cardiovascular: There is a regular rate and rhythm. No murmur, rub or gallop is appreciated. Respiratory: Lungs are clear to auscultation, respirations are non-labored, breath sounds are equal. No wheezes, stridor, rales, or rhonchi. Gastrointestinal: Soft, non-distended, non-tender abdomen without masses or organomegaly noted. There is no rebound or guarding present. Bowel sounds are unremarkable. Musculoskeletal: Normal ROM, no tenderness. Strength 5/5. Sensation intact. Radial pulses equal bilaterally 2+. Neurological: A&O x 3. CN II-XII intact, There are no obvious motor or sensory deficits. Coordination appears grossly intact. Speech is normal. Skin: Skin is warm and dry and no rashes or lesions are noted. No lower extremity edema noted. No pain to palpation of the calfs bilaterally no pain along the deep venous systems lower extremity. (-) Homans sign b/l. Psychiatric: Cooperative, appropriate mood & affect, normal judgment. Limitations: no limitations Course Vital Signs 08/27/18 08/27/18 17:07 19:48 Temperature 98.1 F Pulse Rate 98 79 Respiratory 18 18 Rate Blood Pressure 115/81 98/65 O2 Sat by Pulse 99 98 Oximetry EKG Findings - EKG Comments: EKG Findings:: A 12-lead EKG was performed and shows the following: Rate is 85bpm, and rhythm is normal sinus. There are normal QRS complexes and normal R- wave progression. ST segments have no elevation or depression, and SD segments appear normal. Medical Decision Making - Medical Decision Making Pt seen at 6:05 PM by provider, once I began shift. Pt in no distress, well appearing. Stating she thinks she has bronchitis, and looked online that if she is with bronchitis she needs to come in for evaluation. Pt refused CXR or imaging studies due to risk of radiation. Strep testing and influenza (-). Pt appearing well. Patient is clinical symptoms concerning for upper respiratory infection, most likely viral. Laboratory findings unremarkable, HgB consistent with associated anemia. Lungs are clear to auscultation, no examination findings concerning for clinical pneumonia. Pt HR WNL, no clinical signs on PE concerning for DVT. At this time do feel alternative diagnosis more likely been deep venous thrombosis. I discussed the case in detail with Dr. Flores. We feel pt is stable for discharge with symptomatically care. Given patient's symptoms of chronic abdominal pain patient was sent for further monitoring on mother-baby. pt agreeable with plan and discharge as well as going up to mother baby floor following discharge to floor for monitoring. heart tones were obtained in the emergency department, 150bpm. Within acceptable limits. - Lab Data Result diagrams: 08/27/18 18:16 08/27/18 18:16 Lab Results 08/27/18 08/27/18 08/27/18 Range/Units 18:16 18:16 18:16 WBC (3.8-10.6) k/uL RBC (3.80-5.40) m/uL Hgb (11.4-16.0) gm/dL Hct (34.0-46.0) % MCV (80.0-100.0) fL MCH (25.0-35.0) pg MCHC (31.0-37.0) g/dL RDW (11.5-15.5) % Plt Count (150-450) k/uL Neutrophils % % Lymphocytes % % Monocytes % % Eosinophils % % Basophils % % Neutrophils # (1.3-7.7) k/uL Lymphocytes # (1.0-4.8) k/uL Monocytes # (0-1.0) k/uL Eosinophils # (0-0.7) k/uL Basophils # (0-0.2) k/uL Sodium (137-145) mmol/L Potassium (3.5-5.1) mmol/L Chloride (98-107) mmol/L Carbon Dioxide (22-30) mmol/L Anion Gap mmol/L BUN (7-17) mg/dL Creatinine (0.52-1.04) mg/dL Est GFR (CKD-EPI)AfAm (>60 ml/min/1.73 sqM) Est GFR (CKD-EPI)NonAf (>60 ml/min/1.73 sqM) Glucose (74-99) mg/dL Calcium (8.4-10.2) mg/dL Total Bilirubin (0.2-1.3) mg/dL AST (14-36) U/L ALT (9-52) U/L Alkaline Phosphatase (38-126) U/L Total Protein (6.3-8.2) g/dL Albumin (3.5-5.0) g/dL Urine Color Light Yellow Urine Appearance Clear (Clear) Urine pH 7.0 (5.0-8.0) Ur Specific [place] 1.005 (1.001-1.035) Urine Protein Negative (Negative) Urine Glucose (UA) Negative (Negative) Urine Ketones Negative (Negative) Urine Blood Negative (Negative) Urine Nitrite Negative (Negative) Urine Bilirubin Negative (Negative) Urine Urobilinogen <2.0 (<2.0) mg/dL Ur Leukocyte Esterase Negative (Negative) Influenza Type A RNA Not Detected (Not Detectd) Influenza Type B (PCR) Not Detected (Not Detectd) Group A Strep Rapid Negative (Negative) 08/27/18 08/27/18 Range/Units 18:16 18:16 WBC 9.0 (3.8-10.6) k/uL RBC 3.88 (3.80-5.40) m/uL Hgb 10.9 L (11.4-16.0) gm/dL Hct 33.9 L (34.0-46.0) % MCV 87.5 (80.0-100.0) fL MCH 28.1 (25.0-35.0) pg MCHC 32.2 (31.0-37.0) g/dL RDW 13.4 (11.5-15.5) % Plt Count 206 (150-450) k/uL Neutrophils % 78 % Lymphocytes % 11 % Monocytes % 7 % Eosinophils % 2 % Basophils % 0 % Neutrophils # 7.0 (1.3-7.7) k/uL Lymphocytes # 1.0 (1.0-4.8) k/uL Monocytes # 0.6 (0-1.0) k/uL Eosinophils # 0.2 (0-0.7) k/uL Basophils # 0.0 (0-0.2) k/uL Sodium 136 L (137-145) mmol/L Potassium 3.7 (3.5-5.1) mmol/L Chloride 107 (98-107) mmol/L Carbon Dioxide 23 (22-30) mmol/L Anion Gap 6 mmol/L BUN 8 (7-17) mg/dL Creatinine 0.77 (0.52-1.04) mg/dL Est GFR (CKD-EPI)AfAm >90 (>60 ml/min/1.73 sqM) Est GFR (CKD-EPI)NonAf >90 (>60 ml/min/1.73 sqM) Glucose 82 (74-99) mg/dL Calcium 9.0 (8.4-10.2) mg/dL Total Bilirubin 0.4 (0.2-1.3) mg/dL AST 19 (14-36) U/L ALT 22 (9-52) U/L Alkaline Phosphatase 60 (38-126) U/L Total Protein 6.2 L (6.3-8.2) g/dL Albumin 3.3 L (3.5-5.0) g/dL Urine Color Urine Appearance (Clear) Urine pH (5.0-8.0) Ur Specific [place] (1.001-1.035) Urine Protein (Negative) Urine Glucose (UA) (Negative) Urine Ketones (Negative) Urine Blood (Negative) Urine Nitrite (Negative) Urine Bilirubin (Negative) Urine Urobilinogen (<2.0) mg/dL Ur Leukocyte Esterase (Negative) Influenza Type A RNA (Not Detectd) Influenza Type B (PCR) (Not Detectd) Group A Strep Rapid (Negative) Disposition Clinical Impression: Bronchitis Disposition: HOME SELF-CARE Condition: Good Instructions: Acute Bronchitis (ED) Additional Instructions: PLEASE IMMEDIATELY PRESENT TO LABOR AND DELIVERY FOR MONITORING. Please use medication as discussed. Please follow-up with family doctor in the next 2 days , please follow-up with OBGYN as scheduled. Please return to emergency room if the symptoms increase or worsen or for any other concerns,as discussed including worsening cough, fever, nightsweats. Prescriptions: Ipratropium [employer] 0.06%Nasal [Atrovent Nasal 0.06%] 1 spray EA NOSTRIL TID 3 Days #1 bottle Is patient prescribed a controlled substance at d/c from ED?: No Referrals: Zoraida Deleon MD [Primary Care Provider] - 1-2 days Time of Disposition: 19:37
[2018-08-27 19:08] LABS: Appearance,Urine Clear (Clear); Bilirubin,Urine Negative (Negative); Blood,Urine Negative (Negative); Color,Urine Light Yellow; Glucose,Urine (UA) Negative (Negative); Ketones,Urine Negative (Negative); Leukocyte Esterase,Urine Negative (Negative); Nitrite,Urine Negative (Negative); Protein,Urine Negative (Negative); Specific Gravity,Urine 1.005 (1.001-1.035); Urobilinogen,Urine <2.0 mg/dL (<2.0)
[2018-08-27 19:18] LABS: ALT 22 U/L (9-52); AST 19 U/L (14-36); Albumin 3.3 g/dL (3.5-5.0); Alkaline Phosphatase 60 U/L (38-126); Anion Gap 6 mmol/L; Blood Urea Nitrogen 8 mg/dL (7-17); Carbon Dioxide 23 mmol/L (22-30); Chloride 107 mmol/L (98-107); Glucose 82 mg/dL (74-99); Potassium 3.7 mmol/L (3.5-5.1); Sodium 136 mmol/L (137-145); Total Bilirubin 0.4 mg/dL (0.2-1.3); Total Protein 6.2 g/dL (6.3-8.2)
[2018-08-27 19:19] LABS: Basophils % (A) 0 %; Eosinophils # (A) 0.2 k/uL (0-0.7); Eosinophils % (A) 2 %; HCT 33.9 % (34.0-46.0); HGB 10.9 gm/dL (11.4-16.0); Lymphocytes % (A) 11 %; MCH 28.1 pg (25.0-35.0); MCHC 32.2 g/dL (31.0-37.0); MCV 87.5 fL (80.0-100.0); Mean Platelet Volume 7.7; Monocytes # (A) 0.6 k/uL (0-1.0); Monocytes % (A) 7 %; Neutrophils % (A) 78 %; Platelet Count 206 k/uL (150-450); RBC 3.88 m/uL (3.80-5.40); RDW 13.4 % (11.5-15.5)
[2018-08-27 19:49] VITALS: BP 98/65; PULSE 79
== END 2018-08-27 20:15 | disposition home or self-care (01) ==
LOC: EC 17:00
DX: O99.512 Diseases of the respiratory system complicating pregnancy, second trimester (principal); J40 Bronchitis, not specified as acute or chronic; O21.9 Vomiting of pregnancy, unspecified; O99.89 Other specified diseases and conditions complicating pregnancy, childbirth and the puerperium; R10.9 Unspecified abdominal pain; H92.03 Otalgia, bilateral; G89.29 Other chronic pain; Z88.0 Allergy status to penicillin; Z88.1 Allergy status to other antibiotic agents; Z88.2 Allergy status to sulfonamides; Z88.8 Allergy status to other drugs, medicaments and biological substances; Z91.018 Allergy to other foods; Z91.041 Radiographic dye allergy status; Z91.048 Other nonmedicinal substance allergy status; Z90.89 Acquired absence of other organs; Z3A.25 25 weeks gestation of pregnancy
CPT/HCPCS: 36415; 80053; 81003; 85025; 87081; 87430; 87502; 93005; 99285

== ENCOUNTER 2018-08-27 20:20 | Outpatient (CLI) | payer OTHER ==
[2018-08-27 21:06] VITALS: BP 120/73; PULSE 90; RESP 18; TEMP 97.8
--- NOTE | 2018-09-16 17:48 | P.MSEPDOC ---
Presenting Problems - Arrival Data Date of Arrival on Unit: 08/27/18 Time of Arrival on Unit: 20:20 Mode of Transport: Wheelchair - Complaint OB-Reason for Admission/Chief Complaint: Pain Comment: pelvic pressure Medical History - Information : 4 Para: 2 Term: 2 : 0 Abortions: Spontaneous or Elective: 1 Number of Living Children: 2 - Gestational Age Gestational Age by GINO (wks/days): 24 Weeks and 6 Days Review of Systems - Review of Systems Constitutional: No problems Breast: No problems ENT: No problems Cardiovascular: No problems Respiratory: No problems Gastrointestinal: No problems Genitourinary: No problems Musculoskeletal: No problems Neurological: No problems Skin: No problems Vital Signs - Temperature Temperature: 97.8 F Temperature Source: Temporal Artery Scan - Pulse Right Brachial Pulse Rate: 90 Pulse Assessment Method: Automatic Cuff - Respirations Respiratory Rate: 18 Oxygen Delivery Method: Room Air - Blood Pressure Right Arm Blood Pressure: 120/73 Blood Pressure Mean: 88 Blood Pressure Source: Automatic Cuff Medical Screen Scoring (Pre) - Cervical Exam Dilation: Exam Deferred Effacement: Exam Deferred Membranes: Intact - Uterine Contractions Frequency: N/A Duration: N/A Intensity: N/A - Maternal Vital Signs Maternal Temperature: N/A Maternal Blood Pressure: N/A Signs of Preeclampsia: N/A Maternal Respirations: N/A - Pain Assessment Pain Location and Character: Pelvic Pain Scale Used: Numeric (1 - 10) Pain Intensity: 4 Pain Description: *Acute, Pressure Pain Radiation Location: none - Maternal Trauma Maternal Trauma: N/A - Assessment Baseline FHR: 150 Heart Rate - NICHD Category: Category I (Normal) = 0 Position: N/A Station: N/A - Total Score Total Score (Pre): 0 - Level of Risk Level of Risk: Low (0-5) Physician Notification (Pre) - Physician Notified Physician Notified Date: 08/27/18 Physician Notified Time: 20:45 Physician/Practitioner Notifed:: Dr. Ramirez Spoke With: Dr. Ramirez - Notification Comment Comment: pelvic pressure with cougning, she was diagnosed with bronchitis in the ER, orders to discharge pt and follow up with [facility] in [facility] Disposition - Disposition OB Disposition: Triage, Discharge to home, Written follow up instructions reviewed Discharge Date: 08/27/18 Discharge Time: 20:55 I agree with the RN Medical Screening Exam: Yes Risk & Benefit of care provided described in d/c instruction: Yes Diagnosis: ACUTE BRONCHITIS, UNSPECIFIED
== END 2018-08-27 20:55 | disposition home or self-care (01) ==
LOC: FBPOP 20:20
PROVIDERS: ATTEND Obstetrics & Gynecology
DX: O99.512 Diseases of the respiratory system complicating pregnancy, second trimester (principal); J20.9 Acute bronchitis, unspecified; Z3A.24 24 weeks gestation of pregnancy
CPT/HCPCS: 99213

== ENCOUNTER 2018-10-14 13:13 | Emergency (ER) | payer OTHER ==
[2018-10-14 13:45] VITALS: TEMP 98.7
[2018-10-14] MEDS ORDERED: MAG HYDROX/AL HYDROX/SIMETH 30 ML, HYOSCYAMINE ELIXIR 10 ML, CIMETIDINE HCL 300 MG, LID... PO STA ×4 (14:51)
[2018-10-14] MEDS ORDERED: SODIUM CHLORIDE 0.9% 1,000 ML IV STA (14:51)
--- NOTE | 2018-10-14 15:37 | ED ---
General Adult HPI - General Chief complaint: Abdominal Pain Stated complaint: FB SENT-vomiting Time Seen by Provider: 10/14/18 14:38 Source: patient, RN notes reviewed, old records reviewed Mode of arrival: ambulatory Limitations: no limitations - History of Present Illness Initial comments: Patient is a 33 year old female, currently 32 weeks pregnatn whom was sent after monitoring form labor and elivery. She ocmplained of vomiing episodes. She works in a day care. She reports that she does not feel nauseated now. She reports she did have some bloody streaks in vomit. She is on pepcid for GERD. She denies any other complaints. - Related Data Home Medications Medication Instructions Recorded Confirmed Multivitamins, Thera [Multivitamin 1 tab PO DAILY 10/14/18 10/14/18 (formulary)] Previous Rx's Medication Instructions Recorded Cephalexin [Keflex] 500 mg PO BID #14 cap 10/14/18 Allergies Allergy/AdvReac Type Severity Reaction Status Date / Time Iodinated Contrast- Oral and Allergy Severe Cardiac Verified 10/14/18 16:12 IV Dye Arrest [Iodinated Contrast Media - Oral and] anderson Allergy Anaphylaxis Verified 10/14/18 16:12 erythromycin ethylsuccinate Allergy Rash/Hives Verified 10/14/18 16:12 [From Pediazole] etonogestrel [From Nexplanon] Allergy Rash/Hives Verified 10/14/18 16:12 Penicillins Allergy Rash/Hives Verified 10/14/18 16:12 Sulfa (Sulfonamide Allergy Rash/Hives Verified 10/14/18 16:12 Antibiotics) sulfisoxazole acetyl Allergy Rash/Hives Verified 10/14/18 16:12 [From Pediazole] loratadine [From Claritin-D] AdvReac Nausea & Verified 10/14/18 16:12 Vomiting pseudoephedrine AdvReac Nausea & Verified 10/14/18 16:12 [From Claritin-D] Vomiting Review of Systems ROS Statement: Those systems with pertinent positive or pertinent negative responses have been documented in the HPI. ROS Other: All systems not noted in ROS Statement are negative. Past Medical History Past Medical History: Asthma Additional Past Medical History / Comment(s): migraines, anemia, ovarian cyst, History of Any Multi-Drug Resistant Organisms: None Reported Past Surgical History: Adenoidectomy, Orthopedic Surgery Additional Past Surgical History / Comment(s): bunionectomy, ovarian cyst removal, d&c, Past Psychological History: Anxiety Smoking Status: Never smoker Past Alcohol Use History: None Reported Past Drug Use History: None Reported General Exam - General Exam Comments Initial Comments: well appearing 33 year old female, no distress. Limitations: no limitations General appearance: alert, in no apparent distress Head exam: Present: atraumatic, normocephalic, normal inspection Eye exam: Present: normal appearance, PERRL, EOMI. Absent: scleral icterus, conjunctival injection, periorbital swelling ENT exam: Present: normal exam, mucous membranes moist Neck exam: Present: normal inspection. Absent: tenderness, meningismus, lymphadenopathy Respiratory exam: Present: normal lung sounds bilaterally. Absent: respiratory distress, wheezes, rales, rhonchi, stridor Cardiovascular Exam: Present: regular rate, normal rhythm, normal heart sounds. Absent: systolic murmur, diastolic murmur, rubs, gallop, clicks GI/Abdominal exam: Present: soft, normal bowel sounds, other (protruberant abdomen with 32 weeks ). Absent: distended, tenderness, guarding, rebound, rigid External exam: Present: normal external exam Speculum exam: Present: normal speculum exam By manual exam: Present: normal by manual exam Extremities exam: Present: normal inspection, full ROM, normal capillary refill. Absent: tenderness, pedal edema, joint swelling, calf tenderness Back exam: Present: normal inspection Psychiatric exam: Present: normal affect, normal mood Skin exam: Present: warm, dry, intact, normal color. Absent: rash Course Vital Signs 10/14/18 10/14/18 10/14/18 12:33 13:43 17:26 Temperature 97.4 F L 98.7 F Pulse Rate 94 88 Pulse Rate [ 98 Right Sitting Brachial] Respiratory 18 18 16 Rate Blood Pressure 118/83 115/68 Blood Pressure 118/68 [Right Arm] O2 Sat by Pulse 97 100 Oximetry Medical Decision Making - Medical Decision Making 33 yearold femael presents 32 weeks with complaints of vomiting. She reports blood streaked emesis. She was already at labor AND DElivery and had normal monitory test and is not in labor. She had normal labs. No vomiting UA shows bacterioa will treat for UTI in . Pelvic exam was normal no fluid or vaginal bleeding. Discussed that patient likely suffering from GERD. Advised to continue pepcid. Discussed return parameters. - Lab Data Result diagrams: 10/14/18 15:30 10/14/18 15:30 Lab Results 10/14/18 10/14/18 10/14/18 Range/Units 15:30 15:30 15:30 WBC 8.3 (3.8-10.6) k/uL RBC 3.88 (3.80-5.40) m/uL Hgb 10.3 L (11.4-16.0) gm/dL Hct 31.6 L (34.0-46.0) % MCV 81.4 D (80.0-100.0) fL MCH 26.6 (25.0-35.0) pg MCHC 32.7 (31.0-37.0) g/dL RDW 14.1 (11.5-15.5) % Plt Count 198 (150-450) k/uL Neutrophils % 80 % Lymphocytes % 11 % Monocytes % 6 % Eosinophils % 1 % Basophils % 0 % Neutrophils # 6.6 (1.3-7.7) k/uL Lymphocytes # 0.9 L (1.0-4.8) k/uL Monocytes # 0.5 (0-1.0) k/uL Eosinophils # 0.1 (0-0.7) k/uL Basophils # 0.0 (0-0.2) k/uL Hypochromasia Slight Sodium 136 L (137-145) mmol/L Potassium 3.8 (3.5-5.1) mmol/L Chloride 107 (98-107) mmol/L Carbon Dioxide 24 (22-30) mmol/L Anion Gap 5 mmol/L BUN 6 L (7-17) mg/dL Creatinine 0.54 (0.52-1.04) mg/dL Est GFR (CKD-EPI)AfAm >90 (>60 ml/min/1.73 sqM) Est GFR (CKD-EPI)NonAf >90 (>60 ml/min/1.73 sqM) Glucose 75 (74-99) mg/dL Calcium 9.1 (8.4-10.2) mg/dL Urine Color Yellow Urine Appearance Cloudy H (Clear) Urine pH 7.0 (5.0-8.0) Ur Specific [place]ig 1.015 (1.001-1.035) Urine Protein Negative (Negative) Urine Glucose (UA) Negative (Negative) Urine Ketones 1+ H (Negative) Urine Blood Negative (Negative) Urine Nitrite Negative (Negative) Urine Bilirubin Negative (Negative) Urine Urobilinogen <2.0 (<2.0) mg/dL Ur Leukocyte Esterase Moderate H (Negative) Urine WBC 14 H (0-5) /hpf Ur Squamous Epith Cells 1 (0-4) /hpf Urine Mucus Occasional H (None) /hpf Chlamydia Source Chlamydia DNA (PCR) (Neg,Equiv) N. gonorrhoeae Source N.gonorrhoeae DNA Probe (Neg,Equiv) Trichomonas Ag (Rapid) (Negative) 10/14/18 10/14/18 10/14/18 Range/Units 17:20 17:20 17:20 WBC (3.8-10.6) k/uL RBC (3.80-5.40) m/uL Hgb (11.4-16.0) gm/dL Hct (34.0-46.0) % MCV (80.0-100.0) fL MCH (25.0-35.0) pg MCHC (31.0-37.0) g/dL RDW (11.5-15.5) % Plt Count (150-450) k/uL Neutrophils % % Lymphocytes % % Monocytes % % Eosinophils % % Basophils % % Neutrophils # (1.3-7.7) k/uL Lymphocytes # (1.0-4.8) k/uL Monocytes # (0-1.0) k/uL Eosinophils # (0-0.7) k/uL Basophils # (0-0.2) k/uL Hypochromasia Sodium (137-145) mmol/L Potassium (3.5-5.1) mmol/L Chloride (98-107) mmol/L Carbon Dioxide (22-30) mmol/L Anion Gap mmol/L BUN (7-17) mg/dL Creatinine (0.52-1.04) mg/dL Est GFR (CKD-EPI)AfAm (>60 ml/min/1.73 sqM) Est GFR (CKD-EPI)NonAf (>60 ml/min/1.73 sqM) Glucose (74-99) mg/dL Calcium (8.4-10.2) mg/dL Urine Color Urine Appearance (Clear) Urine pH (5.0-8.0) Ur Specific Greig (1.001-1.035) Urine Protein (Negative) Urine Glucose (UA) (Negative) Urine Ketones (Negative) Urine Blood (Negative) Urine Nitrite (Negative) Urine Bilirubin (Negative) Urine Urobilinogen (<2.0) mg/dL Ur Leukocyte Esterase (Negative) Urine WBC (0-5) /hpf Ur Squamous Epith Cells (0-4) /hpf Urine Mucus (None) /hpf Chlamydia Source Vagina Chlamydia DNA (PCR) Negative (Neg,Equiv) N. gonorrhoeae Source Vagina N.gonorrhoeae DNA Probe Negative (Neg,Equiv) Trichomonas Ag (Rapid) Negative (Negative) Disposition Clinical Impression: 32 weeks gestation of , UTI in , Gastritis Disposition: HOME SELF-CARE Condition: Good Instructions (If sedation given, give patient instructions): Urinary Tract Infection in (ED) Additional Instructions: Patient is advised for close follow-up with primary care physician. Patient should return to the emergency department if any alarming signs or symptoms occur. Prescriptions: Cephalexin [Keflex] 500 mg PO BID #14 cap Is patient prescribed a controlled substance at d/c from ED?: No Referrals: None,Stated [Primary Care Provider] - 1-2 days Time of Disposition: 17:10
[2018-10-14 15:44] LABS: Basophils % (A) 0 %; Eosinophils # (A) 0.1 k/uL (0-0.7); Eosinophils % (A) 1 %; HCT 31.6 % (34.0-46.0); HGB 10.3 gm/dL (11.4-16.0); Hypochromasia Slight; Lymphocytes # (A) 0.9 k/uL (1.0-4.8); Lymphocytes % (A) 11 %; MCH 26.6 pg (25.0-35.0); MCHC 32.7 g/dL (31.0-37.0); Mean Platelet Volume 7.8; Monocytes # (A) 0.5 k/uL (0-1.0); Monocytes % (A) 6 %; Neutrophils # (A) 6.6 k/uL (1.3-7.7); Neutrophils % (A) 80 %; Platelet Count 198 k/uL (150-450); RBC 3.88 m/uL (3.80-5.40); RDW 14.1 % (11.5-15.5); WBC 8.3 k/uL (3.8-10.6)
[2018-10-14 15:53] LABS: Appearance,Urine Cloudy (Clear); Bilirubin,Urine Negative (Negative); Blood,Urine Negative (Negative); Color,Urine Yellow; Glucose,Urine (UA) Negative (Negative); Ketones,Urine 1+ (Negative); Leukocyte Esterase,Urine Moderate (Negative); Mucus,Urine Occasional /hpf; Nitrite,Urine Negative (Negative); Protein,Urine Negative (Negative); Specific Gravity,Urine 1.015 (1.001-1.035); Squamous Epithelial Cell,Urine 1 /hpf (0-4); Urobilinogen,Urine <2.0 mg/dL (<2.0); WBC,Urine 14 /hpf (0-5)
[2018-10-14 16:02] LABS: Anion Gap 5 mmol/L; Blood Urea Nitrogen 6 mg/dL (7-17); Calcium 9.1 mg/dL (8.4-10.2); Carbon Dioxide 24 mmol/L (22-30); Chloride 107 mmol/L (98-107); Glucose 75 mg/dL (74-99); Potassium 3.8 mmol/L (3.5-5.1); Sodium 136 mmol/L (137-145)
[2018-10-14 16:03] LABS: MCV 81.4 fL (80.0-100.0)
[2018-10-14 17:27] VITALS: BP 115/68; PULSE 88; RESP 16
[2018-10-15 13:49] LABS: C. trachomatis,PCR Negative (Neg,Equiv); Chlamydia trachomatis Source Vagina
[2018-10-15 13:52] LABS: N. gonorrhoeae,PCR Negative (Neg,Equiv); Neisseria Source Vagina
== END 2018-10-14 17:28 | disposition home or self-care (01) ==
LOC: EC 13:13
DX: O23.43 Unspecified infection of urinary tract in pregnancy, third trimester (principal); O99.613 Diseases of the digestive system complicating pregnancy, third trimester; K29.70 Gastritis, unspecified, without bleeding; K21.9 Gastro-esophageal reflux disease without esophagitis; Z3A.32 32 weeks gestation of pregnancy; Z91.041 Radiographic dye allergy status; Z91.018 Allergy to other foods; Z88.0 Allergy status to penicillin; Z88.1 Allergy status to other antibiotic agents; Z88.2 Allergy status to sulfonamides; Z88.8 Allergy status to other drugs, medicaments and biological substances
CPT/HCPCS: 59025; 36415; 80048; 85025; 81001; 87808; 87491; 87591; 87070; 99284; 96360; G0463; 87205; 99213

== ENCOUNTER → 2020-06-25 | Outpatient (CLI) | payer OTHER ==
--- NOTE | 2020-06-25 11:48 | CT ---
EXAMINATION TYPE: CT abdomen pelvis wo con DATE OF EXAM: 06/25/2020 COMPARISON: CT 04/02/2017 HISTORY: Abdominal pain under umbilical area CT DLP: 930 mGycm Automated exposure control for dose reduction was used. TECHNIQUE: Helical acquisition of images from the lung bases through the pelvis. FINDINGS: LUNG BASES: No significant abnormality is appreciated. AORTA: No significant abnormality is appreciataed. LIVER/GB: No significant abnormality is appreciated. PANCREAS: No significant abnormality is seen. SPLEEN: No significant abnormality is seen. ADRENALS: No significant abnormality is seen. KIDNEYS: No significant abnormality is seen. REPRODUCTIVE ORGANS: Somewhat bulky appearance of the uterus is again seen, there may be underlying fibroids, possible follicles or cyst associated with the right ovary. URINARY BLADDER: No significant abnormality is seen. BOWEL: Small bowel loops again noted in the right hemiabdomen, suspect malrotation as described in p rior report. The appendix is not seen with certainty. No evident appendicitis. FREE AIR: No Free Air is visible. ASCITES: None visible. PELVIC ADENOPATHY: None visualized. RETROPERITONEAL ADENOPATHY: No Retroperitoneal Adenopathy visible. OSSEOUS STRUCTURES: No significant abnormality is seen. IMPRESSION: SUSPECT SMALL BOWEL MALROTATION DESCRIBED IN PRIOR REPORT. POSSIBLE FIBROID UTERUS, RIGHT OVARIAN CYST. NONCONTRAST EXAM.
== END | disposition home or self-care (01) ==
LOC: RADCTMAIN 08:43
PROVIDERS: ATTEND Family Medicine
DX: R10.84 Generalized abdominal pain (principal)
CPT/HCPCS: 74176

== ENCOUNTER 2021-01-31 15:14 | Emergency (ER) | payer BC, OTHER ==
[2021-01-31 15:20] VITALS: BP 124/79; PULSE 87; RESP 18; TEMP 98
--- NOTE | 2021-01-31 15:33 | ED ---
General Adult HPI - General Chief complaint: Urogenital Stated complaint: Poss UTI Time Seen by Provider: 01/31/21 15:23 Source: patient Mode of arrival: ambulatory Limitations: no limitations - History of Present Illness Initial comments: Dictation was produced using [employer] dictation software. please excuse any grammatical, word or spelling errors. Chief Complaint: 35-year-old female presents to the emergency Department for urinary symptoms History of Present Illness: Patient is a 35-year-old female she presents to the emergency Department for urinary symptoms. Patient states that over the last couple days she is noticed that she's been having urinary urgency, frequency and mild dysuria. Patient has extensive history of urinary tract infections. She is sexual active however only with her . She is not concerned about sexually transmitted disease. There is concern that perhaps she is . Denies any vaginal bleeding or vaginal discharge. Patient has some mild suprapubic pain. She also states that the pain radiates to her right lower back. Patient reports that her symptoms are typical of her usual urinary tract infection symptoms. Denies any constitutional symptoms. She has multiple ALLERGIES to medications. The ROS documented in this emergency department record has been reviewed and confirmed by me. Those systems with pertinent positive or negative responses have been documented in the HPI. All other systems are other negative and/or noncontributory. PHYSICAL EXAM: General Impression: Alert and oriented x3, not in acute distress HEENT: Normocephalic atraumatic, extra-ocular movements intact, pupils equal and reactive to light bilaterally, mucous membranes moist. Cardiovascular: Heart regular rate and rhythm Chest: Able to complete full sentences, no retractions, no tachypnea Abdomen: abdomen soft, non-tender, non-distended, no organomegaly Musculoskeletal: Pulses present and equal in all extremities, no peripheral edema Motor: no focal deficits noted Neurological: CN II-XII grossly intact, no focal motor or sensory deficits noted Skin: Intact with no visualized rashes Psych: Normal affect and mood ED course: 35-year-old female presents with urinary infectious symptoms. Vital signs upon arrival are within acceptable limits. Patient's well-appearing at bedside. Urinalysis shows no findings of urinary tract infection. Negative white blood cells. Negative nitrites. Urine hCG is negative. 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 - Related Data Home Medications Medication Instructions Recorded Confirmed Multivitamins, Thera [Multivitamin 1 tab PO DAILY 10/14/18 10/14/18 (formulary)] Previous Rx's Medication Instructions Recorded Cephalexin [Keflex] 500 mg PO BID #14 cap 10/14/18 Allergies Allergy/AdvReac Type Severity Reaction Status Date / Time Iodinated Contrast Media Allergy Severe Cardiac Verified 01/31/21 15:20 [Iodinated Contrast Media - Arrest Oral and] anderson Allergy Anaphylaxis Verified 01/31/21 15:20 erythromycin ethylsuccinate Allergy Rash/Hives Verified 01/31/21 15:20 [From Pediazole] etonogestrel [From Nexplanon] Allergy Rash/Hives Verified 01/31/21 15:20 Penicillins Allergy Rash/Hives Verified 01/31/21 15:20 Sulfa (Sulfonamide Allergy Rash/Hives Verified 01/31/21 15:20 Antibiotics) sulfisoxazole acetyl Allergy Rash/Hives Verified 01/31/21 15:20 [From Pediazole] loratadine [From Claritin-D] AdvReac Nausea & Verified 01/31/21 15:20 Vomiting pseudoephedrine AdvReac Nausea & Verified 01/31/21 15:20 [From Claritin-D] Vomiting Review of Systems ROS Statement: Those systems with pertinent positive or pertinent negative responses have been documented in the HPI. ROS Other: All systems not noted in ROS Statement are negative. Past Medical History Past Medical History: Asthma Additional Past Medical History / Comment(s): migraines, anemia, ovarian cyst, History of Any Multi-Drug Resistant Organisms: None Reported Past Surgical History: Adenoidectomy, Orthopedic Surgery Additional Past Surgical History / Comment(s): bunionectomy, ovarian cyst removal, d&c, Past Psychological History: Anxiety Smoking Status: Never smoker Past Alcohol Use History: None Reported Past Drug Use History: None Reported General Exam Limitations: no limitations Course Vital Signs 01/31/21 15:18 Temperature 98.0 F Pulse Rate 87 Respiratory 18 Rate Blood Pressure 124/79 O2 Sat by Pulse 100 Oximetry Medical Decision Making - Lab Data Lab Results 01/31/21 01/31/21 Range/Units 15:51 15:51 Urine Color Yellow Urine Appearance Clear (Clear) Urine pH 5.5 (5.0-8.0) Ur Specific [place] 1.016 (1.001-1.035) Urine Protein Negative (Negative) Urine Glucose (UA) Negative (Negative) Urine Ketones Negative (Negative) Urine Blood Trace H (Negative) Urine Nitrite Negative (Negative) Urine Bilirubin Negative (Negative) Urine Urobilinogen <2.0 (<2.0) mg/dL Ur Leukocyte Esterase Small H (Negative) Urine RBC 1 (0-5) /hpf Urine WBC <1 (0-5) /hpf Ur Squamous Epith Cells 2 (0-4) /hpf Urine Bacteria Rare H (None) /hpf Urine Mucus Few H (None) /hpf Urine HCG, Qual Not Detected (Not Detectd) Disposition Clinical Impression: Dysuria Disposition: HOME SELF-CARE Condition: Good Instructions (If sedation given, give patient instructions): Dysuria (ED) Is patient prescribed a controlled substance at d/c from ED?: No Referrals: Zoraida Deleon MD [Primary Care Provider] - 1-2 days
[2021-01-31 16:07] LABS: Appearance,Urine Clear (Clear); Bacteria,Urine Rare /hpf; Bilirubin,Urine Negative (Negative); Blood,Urine Trace (Negative); Color,Urine Yellow; Glucose,Urine (UA) Negative (Negative); Ketones,Urine Negative (Negative); Leukocyte Esterase,Urine Small (Negative); Mucus,Urine Few /hpf; Nitrite,Urine Negative (Negative); PH, Urine 5.5 (5.0-8.0); Protein,Urine Negative (Negative); RBC,Urine 1 /hpf (0-5); Specific Gravity,Urine 1.016 (1.001-1.035); Squamous Epithelial Cell,Urine 2 /hpf (0-4); Urobilinogen,Urine <2.0 mg/dL (<2.0); WBC,Urine <1 /hpf (0-5)
== END 2021-01-31 17:12 | disposition home or self-care (01) ==
LOC: EC 15:14
DX: R30.0 Dysuria (principal); R39.15 Urgency of urination; R10.2 Pelvic and perineal pain; J45.909 Unspecified asthma, uncomplicated; F41.9 Anxiety disorder, unspecified; Z87.440 Personal history of urinary (tract) infections; Z88.0 Allergy status to penicillin
CPT/HCPCS: 81001; 81025; 99283

== ENCOUNTER → 2021-02-08 | Outpatient (CLI) | payer BC, OTHER ==
--- NOTE | 2021-02-08 15:09 | US ---
EXAMINATION TYPE: US abdomen complete DATE OF EXAM: 02/08/2021 COMPARISON: CT 06/25/2020 CLINICAL HISTORY: R10.84 ABD PAIN. generalized abdominal pain EXAM MEASUREMENTS: Liver Length: 11.1 cm Gallbladder Wall: 0.3 cm CBD: 0.6 cm Spleen: 10.2 cm Right Kidney: 10.4 x 3.6 x 4.9 cm Left Kidney: 10.9 x 5.5 x 4.8 cm Pancreas: visualized portions wnl Liver: wnl Gallbladder: No stones seen. Junctional fold is present. Evidence for sonographic Hernández's sign: No CBD: wnl Spleen: wnl Right Kidney: No hydronephrosis or masses seen Left Kidney: No hydronephrosis or masses seen Upper IVC: wnl Abd Aorta: wnl IMPRESSION: 1. Normal abdomen ultrasound
--- NOTE | 2021-02-08 15:14 | US ---
EXAMINATION TYPE: US pelvic complete DATE OF EXAM: 02/08/2021 COMPARISON: CT 06/2020 CLINICAL HISTORY: R10.84 ABD PAIN. generalized abdominal pain TECHNIQUE: Transabdominal (TA). Date of LMP: 02/07/2021 EXAM MEASUREMENTS: Uterus: 9.6 x 4.7 x 5.7 cm Endometrial Stripe: 0.9 cm Right Ovary: 3.5 x 3.2 x 2.1 cm Left Ovary: 2.9 x 2.0 x 2.1 cm 1. Uterus: Anteverted wnl 2. Endometrium: wnl 3. Right Ovary: wnl 4. Left Ovary: wnl. Follicles on the left ovary. 5. Bilateral Adnexa: wnl 6. Posterior cul-de-sac: no free fluid Urinary bladder is sonolucent. The posterior wall is normal. IMPRESSION: Normal pelvic ultrasound.
== END | disposition home or self-care (01) ==
LOC: RADUSWWP 13:33
PROVIDERS: ATTEND Family Medicine
DX: R10.84 Generalized abdominal pain (principal)
CPT/HCPCS: 76700; 76856

== ENCOUNTER → 2021-03-04 | Outpatient (CLI) | payer BC, OTHER | END | disposition home or self-care (01) | LOC: RADFLMAIN 10:43 | PROVIDERS: ATTEND Family Medicine | DX: Z53.9 Procedure and treatment not carried out, unspecified reason (principal) ==

== ENCOUNTER → 2021-03-17 | Outpatient (CLI) | payer BC, OTHER ==
--- NOTE | 2021-03-17 11:48 | FL ---
EXAMINATION TYPE: FL UGI DATE OF EXAM: 03/17/2021 COMPARISON: CT 06/25/2020 HISTORY: Generalized abdominal pain TECHNIQUE: A double contrast UGI study is performed. A total of 58 seconds of fluoroscopic time was utilized during procedure and 45 images obtained. FINDINGS: The esophagus shows normal motility and emptying into the stomach. No evidence of hiatal hernia or s tricture noted. The stomach shows normal distensibility, peristalsis, and mucosal folds. No evidence of any mass or ulcer disease. No significant gastroesophageal reflux was seen during real time performance of this study. The visualized proximal small bowel loops are present in the right abdomen, consistent with known mal rotation. IMPRESSION: The visualized proximal small bowel loops are present in the right abdomen, consistent with known mal rotation.
== END | disposition home or self-care (01) ==
LOC: RADUSWWP 08:16
PROVIDERS: ATTEND Family Medicine
DX: R10.84 Generalized abdominal pain (principal)
CPT/HCPCS: 74240

== ENCOUNTER → 2022-10-05 | Outpatient (CLI) | payer BC, OTHER ==
--- NOTE | 2022-10-05 17:35 | US ---
EXAMINATION TYPE: US pelvic complete DATE OF EXAM: 10/05/2022 COMPARISON: NONE CLINICAL HISTORY: N92.1 excessive/frequent menstruation. Abnormal menses. TECHNIQUE: Transabdominal (TA). Transabdominal sonographic images of the pelvis were acquired. EXAM MEASUREMENTS: Uterus: 10.1 x 4.2 x 6.7 cm Endometrial Stripe: 0.8 cm Right Ovary: 3.0 x 2.1 x 2.4 cm Left Ovary: 2.2 x 1.5 x 2.9 cm 1. Uterus: Anteverted wnl 2. Endometrium: wnl 3. Right Ovary: wnl 4. Left Ovary: wnl 5. Bilateral Adnexa: wnl 6. Posterior cul-de-sac: wnl IMPRESSION: 1. No evidence for acute process. 2. Endometrium within normal limits for thickness.
== END | disposition home or self-care (01) ==
LOC: RADUSWWP 13:30
PROVIDERS: ATTEND Family Medicine
DX: N92.1 Excessive and frequent menstruation with irregular cycle (principal)
CPT/HCPCS: 76856

== ENCOUNTER 2023-08-15 04:03 | Emergency (ER) | payer BC, OTHER ==
[2023-08-15 04:22] VITALS: BP 110/79; PULSE 95; RESP 18; TEMP 98.4
--- NOTE | 2023-08-15 05:28 | ED ---
General Adult HPI - General Chief complaint: Upper Respiratory Infection Stated complaint: Chest pain, Difficulty Breathing, Cough Time Seen by Provider: 08/15/23 04:14 Source: patient, RN notes reviewed, old records reviewed Mode of arrival: ambulatory Limitations: no limitations - History of Present Illness Initial comments: 28-year-old female presents for evaluation of fever, cough, congestion. Patient has sports induced asthma. She was seen at the clinic and prescribed doxycycline and prednisone for her infectious symptoms. - Related Data Home Medications Medication Instructions Recorded Confirmed Multivitamins, Thera [Multivitamin 1 tab PO DAILY 10/14/18 10/14/18 (formulary)] Previous Rx's Medication Instructions Recorded Cephalexin [Keflex] 500 mg PO BID #14 cap 10/14/18 Albuterol Inhaler [Ventolin Hfa 1 - 2 puff INHALATION Q4HR PRN #1 08/15/23 Inhaler] each Oseltamivir [Tamiflu] 75 mg PO Q12HR 5 Days #10 cap 08/15/23 Allergies Allergy/AdvReac Type Severity Reaction Status Date / Time Iodinated Contrast Media Allergy Severe Cardiac Verified 08/15/23 04:15 [Iodinated Contrast Media - Arrest Oral and] anderson Allergy Anaphylaxis Verified 08/15/23 04:15 erythromycin ethylsuccinate Allergy Rash/Hives Verified 08/15/23 04:15 [From Pediazole] etonogestrel [From Nexplanon] Allergy Rash/Hives Verified 08/15/23 04:15 Penicillins Allergy Rash/Hives Verified 08/15/23 04:15 Sulfa (Sulfonamide Allergy Rash/Hives Verified 08/15/23 04:15 Antibiotics) sulfisoxazole acetyl Allergy Rash/Hives Verified 08/15/23 04:15 [From Pediazole] loratadine [From Claritin-D] AdvReac Nausea & Verified 08/15/23 04:15 Vomiting pseudoephedrine AdvReac Nausea & Verified 08/15/23 04:15 [From Claritin-D] Vomiting Review of Systems ROS Statement: Those systems with pertinent positive or pertinent negative responses have been documented in the HPI. ROS Other: All systems not noted in ROS Statement are negative. Past Medical History Past Medical History: Asthma Additional Past Medical History / Comment(s): migraines, anemia, ovarian cyst, History of Any Multi-Drug Resistant Organisms: None Reported Past Surgical History: Adenoidectomy, Orthopedic Surgery Additional Past Surgical History / Comment(s): bunionectomy, ovarian cyst removal, d&c, Past Psychological History: Anxiety Smoking Status: Never smoker Past Alcohol Use History: None Reported Past Drug Use History: None Reported General Exam Limitations: no limitations General appearance: alert, in no apparent distress Head exam: Present: atraumatic, normocephalic Eye exam: Present: normal appearance, PERRL ENT exam: Present: normal exam Neck exam: Present: normal inspection. Absent: tenderness, meningismus Respiratory exam: Present: normal lung sounds bilaterally. Absent: respiratory distress, wheezes Cardiovascular Exam: Present: regular rate, normal rhythm GI/Abdominal exam: Present: soft. Absent: distended, tenderness Neurological exam: Present: alert, oriented X3, CN II-XII intact. Absent: motor sensory deficit Skin exam: Present: warm, dry, intact. Absent: cyanosis, diaphoretic Course Vital Signs 08/15/23 04:13 Temperature 98.4 F Pulse Rate 95 Respiratory 18 Rate Blood Pressure 110/79 O2 Sat by Pulse 98 Oximetry Medical Decision Making - Medical Decision Making Was pt. sent in by a medical professional or institution (, PA, CONSULAR OFFICER, urgent care, hospital, or fdc...) When possible be specific @ -No Did you speak to anyone other than the patient for history (EMS, parent, family, police, friend...)? What history was obtained from this source @ -No Did you review nursing and triage notes (agree or disagree)? Why? @ -I reviewed and agree with nursing and triage notes Were old charts reviewed (outside hosp., previous admission, EMS record, old EKG, old radiological studies, urgent care reports/EKG's, fdc records)? Report findings @ -No old charts were reviewed Differential Diagnosis (chest pain, altered mental status, abdominal pain women, abdominal pain men, vaginal bleeding, weakness, fever, dyspnea, syncope, headache, dizziness, GI bleed, back pain, seizure, CVA, palpatations, mental health, musculoskeletal)? @ -Pneumonia, coronavirus, influenza EKG interpreted by me (3pts min.). @ -As above X-rays interpreted by me (1pt min.). @ -[No focal pneumonia on chest x-ray, no acute findings CT interpreted by me (1pt min.). @ -None done U/S interpreted by me (1pt. min.). @ -None done What testing was considered but not performed or refused? (CT, X-rays, U/S, labs)? Why? @ -None What meds were considered but not given or refused? Why? @ -None Did you discuss the management of the patient with other professionals (professionals i.e. DrElizabeth, PA, CONSULAR OFFICER, lab, RT, psych nurse, clinical social work therapist, tongue binder, teacher, aoc aadc operations staff officer, director case)? Give summary @ -No Was smoking cessation discussed for >3mins.? @ -No Was critical care preformed (if so, how long)? @ -No Were there social determinants of health that impacted care today? How? (Homelessness, low income, unemployed, alcoholism, drug addiction, transportation, low edu. Level, literacy, decrease access to med. care, correction, rehab)? @ -No Was there de-escalation of care discussed even if they declined (Discuss DNR or withdrawal of care, Hospice)? DNR status @ -No What co-morbidities impacted this encounter? (DM, HTN, Smoking, COPD, CAD, Cancer, CVA, ARF, Chemo, Hep., AIDS, mental health diagnosis, sleep apnea, morbid obesity)? @ sports-induced asthma Was patient admitted / discharged? Hospital course, mention meds given and route, prescriptions, significant lab abnormalities, going to OR and other pertinent info. @ -38-year-old female with cough and cold symptoms. Patient has positive for influenza. She will be prescribed Tamiflu as she has a history of asthma. Return parameters discussed. Undiagnosed new problem with uncertain prognosis? @ -No Drug Therapy requiring intensive monitoring for toxicity (Heparin, Nitro, Insulin, Cardizem)? @ -No Were any procedures done? @ -No Diagnosis/symptom? @ -Influenza a Acute, or Chronic, or Acute on Chronic? @ -[acute Uncomplicated (without systemic symptoms) or Complicated (systemic symptoms)? @ -default Side effects of treatment? @ -No Exacerbation, Progression, or Severe Exacerbation? @ -No Poses a threat to life or bodily function? How? (Chest pain, USA, CT, pneumonia, PE, COPD, DKA, ARF, appy, cholecystitis, CVA, Diverticulitis, Homicidal, Suicidal, threat to staff... and all critical care pts) @ -[low risk at this time - Lab Data Lab Results 08/15/23 08/15/23 Range/Units 04:19 04:19 Influenza Type A (PCR) Detected A (Not Detectd) Influenza Type B (PCR) Not Detected (Not Detectd) RSV (PCR) Not Detected (Not Detectd) SARS-CoV-2 (PCR) Not Detected (Not Detectd) Group A Strep (PCR) NOT DETECTED (Not Detectd) Disposition Clinical Impression: Influenza Disposition: HOME SELF-CARE Condition: Fair Instructions (If sedation given, give patient instructions): Influenza (ED) Prescriptions: Oseltamivir [Tamiflu] 75 mg PO Q12HR 5 Days #10 cap Albuterol Inhaler [Ventolin Hfa Inhaler] 1 - 2 puff INHALATION Q4HR PRN #1 each PRN Reason: Shortness Of Breath Is patient prescribed a controlled substance at d/c from ED?: No Referrals: Zoraida Deleon MD [Primary Care Provider] - 1-2 days Time of Disposition: 05:27
--- NOTE | 2023-08-15 06:15 | XR ---
EXAM: XR Chest, 2 Views CLINICAL HISTORY: ITS.REASON XR Reason: cough TECHNIQUE: Frontal and lateral views of the chest. COMPARISON: 08/12/2015 FINDINGS: Lungs: Unremarkable. No consolidation. Pleural space: Unremarkable. No pneumothorax. Heart: Unremarkable. No cardiomegaly. Mediastinum: Unremarkable. Normal mediastinal contour. Bones/joints: Unremarkable. No acute fracture. IMPRESSION: Normal chest x-rays.
== END 2023-08-15 05:39 | disposition home or self-care (01) ==
LOC: EC 04:03
DX: J10.1 Influenza due to other identified influenza virus with other respiratory manifestations (principal); J45.909 Unspecified asthma, uncomplicated; Z86.59 Personal history of other mental and behavioral disorders; Z20.822 Contact with and (suspected) exposure to COVID-19; Z91.041 Radiographic dye allergy status; Z88.1 Allergy status to other antibiotic agents; Z88.0 Allergy status to penicillin; Z88.2 Allergy status to sulfonamides; Z88.8 Allergy status to other drugs, medicaments and biological substances
CPT/HCPCS: 71046; 87636; 87651; 99285

== ENCOUNTER 2023-08-27 00:02 | Emergency (ER) | payer BC, OTHER ==
--- NOTE | 2023-08-27 00:17 | ED ---
Chest Pain HPI - General Chief Complaint: Chest Pain Stated Complaint: Chest Pain, Left Arm pain and numbness Time Seen by Provider: 08/27/23 00:07 Source: patient Mode of arrival: ambulatory Limitations: no limitations - History of Present Illness MD Complaint: chest pain -: hour(s) Onset: during rest Pain Location: substernal Pain Radiation: LUE Severity: moderate Quality: other (Burning) Consistency: constant Improves With: nothing Worsens With: nothing Treatments Prior to Arrival: none - Related Data Home Medications Medication Instructions Recorded Confirmed Multivitamins, Thera [Multivitamin 1 tab PO DAILY 10/14/18 10/14/18 (formulary)] Previous Rx's Medication Instructions Recorded Cephalexin [Keflex] 500 mg PO BID #14 cap 10/14/18 Albuterol Inhaler [Ventolin Hfa 1 - 2 puff INHALATION Q4HR PRN #1 08/15/23 Inhaler] each Oseltamivir [Tamiflu] 75 mg PO Q12HR 5 Days #10 cap 08/15/23 Allergies Allergy/AdvReac Type Severity Reaction Status Date / Time Iodinated Contrast Media Allergy Severe Cardiac Verified 08/27/23 00:06 [Iodinated Contrast Media - Arrest Oral and] anderson Allergy Anaphylaxis Verified 08/27/23 00:06 erythromycin ethylsuccinate Allergy Rash/Hives Verified 08/27/23 00:06 [From Pediazole] etonogestrel [From Nexplanon] Allergy Rash/Hives Verified 08/27/23 00:06 Penicillins Allergy Rash/Hives Verified 08/27/23 00:06 Sulfa (Sulfonamide Allergy Rash/Hives Verified 08/27/23 00:06 Antibiotics) sulfisoxazole acetyl Allergy Rash/Hives Verified 08/27/23 00:06 [From Pediazole] loratadine [From Claritin-D] AdvReac Nausea & Verified 08/27/23 00:06 Vomiting pseudoephedrine AdvReac Nausea & Verified 08/27/23 00:06 [From Claritin-D] Vomiting Review of Systems ROS Statement: Those systems with pertinent positive or pertinent negative responses have been documented in the HPI. ROS Other: All systems not noted in ROS Statement are negative. Constitutional: Denies: fever, chills Respiratory: Denies: cough, dyspnea Cardiovascular: Reports: chest pain. Denies: palpitations, edema, syncope Gastrointestinal: Denies: abdominal pain, nausea, vomiting, diarrhea Genitourinary: Denies: dysuria, frequency, hematuria Musculoskeletal: Denies: back pain Skin: Denies: rash Neurological: Denies: headache, weakness, numbness EKG Findings - EKG Results: EKG: interpreted by CHARLIED, sinus rhythm (Rate 86 bpm), normal axis, normal QRS, normal ST/T, no acute changes Past Medical History Past Medical History: Asthma Additional Past Medical History / Comment(s): migraines, anemia, ovarian cyst, History of Any Multi-Drug Resistant Organisms: None Reported Past Surgical History: Adenoidectomy, Orthopedic Surgery Additional Past Surgical History / Comment(s): bunionectomy, ovarian cyst removal, d&c, Past Psychological History: Anxiety Smoking Status: Never smoker Past Alcohol Use History: None Reported Past Drug Use History: None Reported General Exam Limitations: no limitations General appearance: alert, in no apparent distress Head exam: Present: atraumatic, normocephalic Eye exam: Present: normal appearance. Absent: scleral icterus, conjunctival injection ENT exam: Present: normal oropharynx Neck exam: Present: normal inspection Respiratory exam: Present: normal lung sounds bilaterally. Absent: respiratory distress, wheezes, rales, rhonchi, stridor Cardiovascular Exam: Present: regular rate, normal rhythm, normal heart sounds. Absent: systolic murmur, diastolic murmur, rubs, gallop GI/Abdominal exam: Present: soft. Absent: distended, tenderness, guarding, rebound, rigid, mass Extremities exam: Present: normal inspection, normal capillary refill. Absent: pedal edema, calf tenderness Back exam: Present: normal inspection. Absent: CVA tenderness (R), CVA tenderness (L) Neurological exam: Present: alert Skin exam: Present: warm, dry, intact, normal color. Absent: rash Course Vital Signs 08/27/23 08/27/23 08/27/23 00:03 00:30 01:55 Temperature 98.4 F Pulse Rate 97 83 Pulse Rate [ 75 System Configuration Specialist ] Respiratory 18 12 Rate Blood Pressure 131/79 114/78 O2 Sat by Pulse 99 96 Oximetry 08/27/23 02:08 Temperature 97.6 F Pulse Rate 80 Pulse Rate [ System Configuration Specialist ] Respiratory 16 Rate Blood Pressure 114/80 O2 Sat by Pulse 99 Oximetry Chest Pain MDM - MDM The patient had chest x-ray which I interpreted as negative for acute infiltrate, pneumothorax, congestive heart failure Was pt. sent in by a medical professional or institution (EDDIE Montano, PUPPY WALKER, urgent care, hospital, or residential...) When possible be specific @ -[No] Did you speak to anyone other than the patient for history (EMS, parent, family, police, friend...)? What history was obtained from this source @ -[No] Did you review nursing and triage notes (agree or disagree)? Why? @ -[I reviewed and agree with nursing and triage notes] Were old charts reviewed (outside hosp., previous admission, EMS record, old EKG, old radiological studies, urgent care reports/EKG's, residential records)? Report findings @ -[No old charts were reviewed] Differential Diagnosis (chest pain, altered mental status, abdominal pain women, abdominal pain men, vaginal bleeding, weakness, fever, dyspnea, syncope, headache, dizziness, GI bleed, back pain, seizure, CVA, palpatations, mental health, musculoskeletal)? @ -Differential Chest Pain: Stable Angina, Unstable Angina, STEMI, NSTEMI Aortic Dissection, Pneumothorax, Musculoskeletal, Esophageal Spasm GERD, Cholecystitis, Pancreatitis, Zoster, this is not meant to be an all-inclusive list. EKG interpreted by me (3pts min.). @ -[I interpreted As above] X-rays interpreted by me (1pt min.). @ -[[I interpreted as above CT interpreted by me (1pt min.). @ -[None done] U/S interpreted by me (1pt. min.). @ -[None done] What testing was considered but not performed or refused? (CT, X-rays, U/S, labs)? Why? @ -[None] What meds were considered but not given or refused? Why? @ -[None] Did you discuss the management of the patient with other professionals (professionals i.e. EDDIE Montano, PUPPY WALKER, lab, RT, psych nurse, high school social studies teacher, design technician, teacher, optics technical officer, wrapper caser)? Give summary @ -[No] Was smoking cessation discussed for >3mins.? @ -[No] Was critical care preformed (if so, how long)? @ -[No] Were there social determinants of health that impacted care today? How? (Homelessness, low income, unemployed, alcoholism, drug addiction, transportation, low edu. Level, literacy, decrease access to med. care, residential, rehab)? @ -[No] Was there de-escalation of care discussed even if they declined (Discuss DNR or withdrawal of care, Hospice)? DNR status @ -[No] What co-morbidities impacted this encounter? (DM, HTN, Smoking, COPD, CAD, C ancer, CVA, ARF, Chemo, Hep., AIDS, mental health diagnosis, sleep apnea, morbid obesity)? @ -[None] Was patient admitted / discharged? Hospital course, mention meds given and route, prescriptions, significant lab abnormalities, going to OR and other pertinent info. @ -[Patient is a 38-year-old woman presenting with chest pain. She has no risk factors. Her initial workup unremarkable. Patient stable for further outpatient care. Discussed appropriate return parameters and follow-up Undiagnosed new problem with uncertain prognosis? @ -[No] Drug Therapy requiring intensive monitoring for toxicity (Heparin, Nitro, Insulin, Cardizem)? @ -[No] Were any procedures done? @ -[No] Diagnosis/symptom? @ -[Acute chest pain Acute, or Chronic, or Acute on Chronic? @ -[default] Uncomplicated (without systemic symptoms) or Complicated (systemic symptoms)? @ -[Uncomplicated Side effects of treatment? @ -[No] Exacerbation, Progression, or Severe Exacerbation? @ -[No] Poses a threat to life or bodily function? How? (Chest pain, [place], [place], pneumonia, PE, COPD, DKA, ARF, appy, cholecystitis, CVA, Diverticulitis, Homicidal, Suicidal, threat to staff... and all critical care pts) @ -[No] Disposition Clinical Impression: Chest pain Disposition: HOME SELF-CARE Condition: Good Instructions (If sedation given, give patient instructions): Chest Pain (ED) Is patient prescribed a controlled substance at d/c from ED?: No Referrals: Zoraida Deleon MD [Primary Care Provider] - 1-2 days
[2023-08-27] MEDS ORDERED: MAG HYDROX/AL HYDROX/SIMETH 30 ML, HYOSCYAMINE ELIXIR 10 ML, LIDOCAINE 2% GLYDO JELLY 1... PO STA ×3 (00:28)
[2023-08-27 00:54] LABS: Basophils # (A) 0.1 k/uL (0-0.2); Basophils % (A) 1 %; Eosinophils # (A) 0.1 k/uL (0-0.7); Eosinophils % (A) 1 %; HCT 42.4 % (34.0-46.0); HGB 14.5 gm/dL (11.4-16.0); Lymphocytes # (A) 3.2 k/uL (1.0-4.8); Lymphocytes % (A) 31 %; MCHC 34.1 g/dL (31.0-37.0); MCV 85.1 fL (80.0-100.0); Mean Platelet Volume 8.4; Monocytes # (A) 0.6 k/uL (0-1.0); Monocytes % (A) 6 %; Neutrophils # (A) 6.1 k/uL (1.3-7.7); Neutrophils % (A) 59 %; Platelet Count 261 k/uL (150-450); RBC 4.99 m/uL (3.80-5.40); RDW 12.9 % (11.5-15.5); WBC 10.3 k/uL (3.8-10.6)
[2023-08-27 01:10] LABS: Partial Thromboplastin Time 27.6 sec (22.0-30.0); Prothrombin Time 10.6 sec (10.0-12.5)
[2023-08-27 01:18] LABS: ALT 21 U/L (4-34); AST 23 U/L (14-36); African American GFR (CKD) >90 (>60 ml/min/1.73 sqM); Albumin 4.2 g/dL (3.5-5.0); Alkaline Phosphatase 68 U/L (38-126); Amylase 76 U/L (30-110); Anion Gap 9 mmol/L; Appearance,Urine Cloudy (Clear); Bacteria,Urine Few /hpf; Bilirubin,Urine Negative (Negative); Blood Urea Nitrogen 11 mg/dL (7-17); Blood,Urine Moderate (Negative); Calcium 9.2 mg/dL (8.4-10.2); Carbon Dioxide 25 mmol/L (22-30); Chloride 103 mmol/L (98-107); Color,Urine Yellow; Glucose 94 mg/dL (74-99); Glucose,Urine (UA) Negative (Negative); Ketones,Urine Negative (Negative); Leukocyte Esterase,Urine Moderate (Negative); Lipase 120 U/L (23-300); Mucus,Urine Few /hpf; Nitrite,Urine Negative (Negative); Non-African American GFR(CKD) >90 (>60 ml/min/1.73 sqM); Potassium 4.1 mmol/L (3.5-5.1); Protein,Urine Trace (Negative); RBC,Urine 2 /hpf (0-5); Sodium 137 mmol/L (137-145); Specific Gravity,Urine 1.022 (1.001-1.035); Squamous Epithelial Cell,Urine 5 /hpf (0-4); Total Bilirubin 0.4 mg/dL (0.2-1.3); Total Protein 6.8 g/dL (6.3-8.2); Urobilinogen,Urine <2.0 mg/dL (<2.0); WBC,Urine 6 /hpf (0-5)
--- NOTE | 2023-08-27 01:47 | XR ---
EXAM: XR Chest, 2 Views CLINICAL HISTORY: ITS.REASON XR Reason: Chest Pain TECHNIQUE: Frontal and lateral views of the chest. COMPARISON: No relevant prior studies available. FINDINGS: Lungs: No consolidation or mass. Pleural space: No effusion. Heart: No cardiomegaly. Bones/joints: No acute findings. IMPRESSION: No acute cardiopulmonary process.
[2023-08-27 02:11] VITALS: BP 114/80; PULSE 80; RESP 16; TEMP 97.6
== END 2023-08-27 02:09 | disposition home or self-care (01) ==
LOC: EC 00:02
DX: R07.9 Chest pain, unspecified (principal); J45.909 Unspecified asthma, uncomplicated; Z88.0 Allergy status to penicillin; Z88.1 Allergy status to other antibiotic agents; Z88.2 Allergy status to sulfonamides; Z91.018 Allergy to other foods; Z91.041 Radiographic dye allergy status; Z88.8 Allergy status to other drugs, medicaments and biological substances; Z86.59 Personal history of other mental and behavioral disorders
CPT/HCPCS: 36415; 71046; 80053; 81001; 81025; 82150; 83690; 83735; 84484; 85025; 85379; 85610; 85730; 93005; 99285

== ENCOUNTER → 2024-11-19 | Outpatient (CLI) | payer BC ==
--- NOTE | 2024-11-19 08:54 | MM ---
Reason for Exam: Screening (asymptomatic). Baseline mammogram. Patient History: Menarche at age 12. First Full-Term at age 20. Postmenopausal. Last menstrual period: 11/05/2024 Risk Values: Corrie 5 year model risk: 0.5%. NCI Lifetime model risk: 9.0%. Prior Study Comparison: Patient's first Mammogram. Tissue Density: The breasts are heterogeneously dense, which may obscure small masses. Findings: Analyzed By CAD. There is no suspicious group of microcalcifications or new suspicious mass in either breast. Overall Assessment: Negative, BI-RAD 1 Management: Screening Mammogram of both breasts in 1 year. . Patient should continue monthly self-breast exams. A clinical breast exam by your physician is recommended on an annual basis. This exam should not preclude additional follow-up of suspicious palpable abnormalities. Note on Corrie scores and lifetime risk: 1. A Corrie score greater than 3% is considered moderate risk. If this is the case, consider specialist referral to assess eligibility for a risk reducing agent. 2. If overall lifetime risk for the development of breast cancer is 20% or higher, the patient may qualify for future screening with alternating mammogram and breast MRI. [facility], , 11/19/2024 8:51 AM. Electronically signed and approved by: Nirav Moon M.D.
== END | disposition home or self-care (01) ==
LOC: RADMAMWWP 08:16
PROVIDERS: ATTEND Family Medicine
DX: Z12.31 Encounter for screening mammogram for malignant neoplasm of breast (principal); R92.333 Mammographic heterogeneous density, bilateral breasts; Z78.0 Asymptomatic menopausal state
CPT/HCPCS: 77063; 77067